=== PATIENT | male | born 1940 | race Caucasian/White ===

== ENCOUNTER 2022-11-19 13:55 | Observation (INO) | payer MEDICARE, MEDICAID ==
[~2022-11-19] VITALS: Ht 180 cm; Wt 75.7 kg
--- NOTE | 2022-11-19 14:24 | ED Fall/Injury ---
General Chief Complaint: Trauma-Non Activation Stated Complaint: FALL Nursing Triage Note: PT ARRIVED PER [facility]. PT CO OF R SHOULDER PAIN AND L HIP PAIN.PT FELL ON SUNDAY AND WAS SEEN IN [facility] AND WAS CLEARED. PT CONT TO HAS R SHOULDER PAIN AND BRUISING, AND L HIP PAIN PAIN, SWELLING AND BRUISING. Source: patient Exam Limitations: clinical condition (dementia) History of Present Illness Date Seen by Provider: Nov 19, 2022 Time Seen by Provider: 14:10 Initial Comments Patient is an 82-year-old male sent from a alf chief complaint right shoulder pain, left hip pain, increased confusion, inability to bear weight to stand for transfers. He had a fall last week and was seen at [facility] ER. Reportedly he had a "work-up" and was cleared to go back to the alf. Reportedly he has continued to develop swelling and pain over the left hip as well as continued right shoulder pain. He is chronically anticoagulated on Eliquis. Patient is very confused, when asked why he is in the emergency department he says "I do not know." He is not answering questions consistently and mentions his work and his boss. When I asked if his abdomen hurt he said "no". Notably vital signs are stable. He is alert, airway appears intact. He is following commands. Will proceed with repeat imaging, basic labs. [facility] records also report that he has had "dark urine". Occurred: last week Severity: mild Injuries/Pain Location: upper extremity, lower extremity Context: unknown Loss of Consciousness: unsure Associated Symptoms (Fall): Confusion Allergies and Home Medications Patient Home Medication List Home Medication List Reviewed: Yes Review of Systems Review of Systems Constitutional: see HPI HPI, review of systems, past medical family and social history unobtainable secondary to the patient's dementia Past Ixrswuw-Iuxxbg-Fukkxv Hx Patient Social History Tobacco Use?: No Smoking Status: Former Smoker Substance use?: No Alcohol Use?: No Pt feels they are or have been: No Immunizations Up To Date Influenza Vaccine Up-to-Date: No; Not Current Physical Exam Vital Signs Vital Signs - First Documented 11/19/22 13:59 Temp 37.0 Pulse 78 Resp 18 B/P (MAP) 127/63 (84) Pulse Ox 97 Capillary Refill : Less Than 3 Seconds Height, Weight, BMI Height: '" Weight: lbs. oz. kg; 24.00 BMI Method: General Appearance: WD/WN, no apparent distress, thin HEENT: PERRL/EOMI, pharynx normal, other (No raccoon eyes, no sneed sign) Neck: non-tender, full range of motion, supple Gastrointestinal: non tender, soft Back: no vertebral tenderness, other (ecchymoses noted at the superior medial left buttock with significant amount of edema that is tender from the ecchymotic area, laterally to the proximal thigh; no open wounds) Extremities: other (decreased ROM to the Right UE with extension and internal rotation; distal NVI; good visual merchandising director. Normal sensation all 4 ext.) Neurologic/Psychiatric: mosaic technician II-XII nml as tested, alert, other (decreaed move ment to the LLE ?due to pain) Skin: warm/dry, ecchymosis (sig ecchymoses bilateral UE and buttock as descr ibed above) [place] Coma Score Best Eye Response: (4) Open Spontaneously Best Verbal Response: (4) Confused Conversation Best Motor Response: (6) Obeys Commands [place] Total: 14 Progress/Results/Core Measures Results/Orders Lab Results Laboratory Tests Test 11/19/22 14:20 11/19/22 14:36 11/19/22 15:46 Range/Units White Blood Count 16.8 H 4.3-11.0 10^3/uL Red Blood Count 3.76 L 4.30-5.52 10^6/uL Hemoglobin 11.4 L 13.3-17.7 g/dL Hematocrit 35 L 40-54 % Mean Corpuscular Volume 92 80-99 fL Mean Corpuscular Hemoglobin 30 25-34 pg Mean Corpuscular Hemoglobin Concent 33 32-36 g/dL Red Cell Distribution Width 13.3 10.0-14.5 % Platelet Count 263 130-400 10^3/uL Mean Platelet Volume 12.1 9.0-12.2 fL Immature Granulocyte % (Auto) 1 % Neutrophils (%) (Auto) 83 H 42-75 % Lymphocytes (%) (Auto) 7 L 12-44 % Monocytes (%) (Auto) 8 0-12 % Eosinophils (%) (Auto) 1 0-10 % Basophils (%) (Auto) 0 0-10 % Neutrophils # (Auto) 13.9 H 1.8-7.8 10^3/uL Lymphocytes # (Auto) 1.2 1.0-4.0 10^3/uL Monocytes # (Auto) 1.3 H 0.0-1.0 10^3/uL Eosinophils # (Auto) 0.2 0.0-0.3 10^3/uL Basophils # (Auto) 0.1 0.0-0.1 10^3/uL Immature Granulocyte # (Auto) 0.1 0.0-0.1 10^3/uL Neutrophils % (Manual) 87 % Lymphocytes % (Manual) 6 % Monocytes % (Manual) 6 % Eosinophils % (Manual) 1 % Basophils % (Manual) 0 % Band Neutrophils 0 % Elliptocytes SLIGHT Sodium Level 139 135-145 MMOL/L Potassium Level 4.2 3.6-5.0 MMOL/L Chloride Level 108 H 98-107 MMOL/L Carbon Dioxide Level 19 L 21-32 MMOL/L Anion Gap 12 5-14 MMOL/L Blood Urea Nitrogen 29 H 7-18 MG/DL Creatinine 1.09 0.60-1.30 MG/DL Estimat Glomerular Filtration Rate 68 BUN/Creatinine Ratio 27 Glucose Level 109 H 70-105 MG/DL Calcium Level 9.1 8.5-10.1 MG/DL Urine Color YELLOW Urine Clarity CLEAR Urine pH 6.0 5-9 Urine Specific [place] 1.020 1.016-1.022 Urine Protein NEGATIVE NEGATIVE Urine Glucose (UA) NEGATIVE NEGATIVE Urine Ketones TRACE H NEGATIVE Urine Nitrite NEGATIVE NEGATIVE Urine Bilirubin NEGATIVE NEGATIVE Urine Urobilinogen 4.0 < = 1.0 MG/DL Urine Leukocyte Esterase NEGATIVE NEGATIVE Urine RBC (Auto) 3+ H NEGATIVE Urine RBC >100 H /HPF Urine WBC 0-2 /HPF Urine Squamous Epithelial Cells RARE /HPF Urine Crystals NONE /LPF Urine Bacteria NEGATIVE /HPF Urine Casts NONE /LPF Urine Mucus NEGATIVE /LPF Urine Culture Indicated NO My Orders Orders - MARCELLA LEMON MD Ed Iv/Invasive Line Start (11/19/22 14:15) Cbc With Automated Diff (11/19/22 14:15) Basic Metabolic Panel (11/19/22 14:15) Ua Culture If Indicated (11/19/22 14:15) Chest 1 View, Ap/Pa Only (11/19/22 14:15) Pelvis With Left Hip 2-3 Views (11/19/22 14:15) Ct Head Wo (11/19/22 14:15) Manual Differential (11/19/22 14:20) Covid 19 Inhouse Test (11/19/22 15:44) Influenza A And B By Pcr (11/19/22 15:44) Isolation Central Supply Req (11/19/22 15:44) Vital Signs/I&O 11/19/22 13:59 Temp 37.0 Pulse 78 Resp 18 B/P (MAP) 127/63 (84) Pulse Ox 97 Blood Pressure Mean: 84 Progress Progress Note : Time: 16:13 Progress Note Patient seen and evaluated by me. Evaluation today includes basic laboratory studies including cath UA, chest x-ray, pelvis and left hip x-ray, CT head without contrast as the patient is anticoagulated with increasing confusion. His vital signs are stable, he is able to hold a conversation but is intermittently confused speech. His chest x-ray is negative for any acute pathology, I am able to partially visualize the right shoulder which does not demonstrate any evidence of dislocation. The patient is able to go through passive range of motion with discomfort in full extension and internal rotation. Neurovascularly intact to the right upper extremity. His pelvis and left hip x-rays do not show any evidence of fracture. CT head without contrast is negative for intracranial hemorrhage. Labs show a mild leukocytosis with a left shift. Chemistry is generally unremarkable. UA shows hematuria, this is a cath specimen, COVID and flu test are negative. He has significant ecchymosis, swelling and warmth to the left gluteus, lateral thigh extending almost to the knee. Not cellulitic in appearance. Significant discomfort with movement of the left leg. Sensation to the left leg is intact, pulses are intact. The left leg is slightly weaker than the right. The patient currently resides in an assisted living facility and in discussion with the nursing staff on trying to get him back over there he now exceeds their capability as he has had slow but steady decline in his ability to function in the assisted living facility. Case was discussed with Dr. Garcia, the patient's primary care physician, she accepts him to inpatient admission here at the hospital Diagnostic Imaging Diagonstic Imaging: Xray Comments [facility] [employer] [facility]. [place], [place] NAME: ARACELY WINSTON [facility] REC#: [id number] PT STATUS: REG ER : 1940 PHYSICIAN: MARCELLA LEMON MD ADMIT DATE: 11/19/22/ER Signed Date of Exam:11/19/22 CHEST 1 VIEW, AP/PA ONLY EXAMINATION: Chest 1 view. HISTORY: Chest injury. COMPARISON: None available. FINDINGS: The lungs are clear without edema or pneumonia. No pleural effusion or pneumothorax. Heart size is normal. IMPRESSION: Clear lungs. Dictated by: Dictated on workstation # [id number] Dict: 11/19/22 1453 Trans: 11/19/22 1549 PJE [id number] Interpreted by: KENIA PARIS MD Electronically signed by: KENIA PARIS MD 11/19/22 1549 Diagonstic Imaging: CT Comments [facility] [place], [place] NAME: ARACELY WINSTON [facility] REC#: [id number] PT STATUS: REG ER : 1940 PHYSICIAN: MARCELLA LEMON MD ADMIT DATE: 11/19/22/ER Signed Date of Exam:11/19/22 CT HEAD WO EXAMINATION: CT head without contrast. TECHNIQUE: Multiple contiguous axial images were obtained through the brain without the use of intravenous contrast. All CT scans use one or more of the following dose optimizing techniques: automated exposure control, MA and/or KvP adjustment based on patient size and exam type or iterative reconstruction. HISTORY: Head injury. COMPARISON: 06/22/2020. FINDINGS: The kwon-white matter differentiation is normal. No mass effect or midline shift. There is age related cerebral atrophy with ex vacuo dilation of the ventricles. Basilar cisterns are patent. There are no intra-axial or extra-axial fluid collection. There is no intracranial hemorrhage. The orbits are normal. Paranasal sinuses are normal. Mastoid air cells are clear. No soft tissue abnormality is seen. No osseus lesion or fracture is seen. IMPRESSION: No acute intracranial abnormality. Dictated by: Dictated on workstation # [id number] Dict: 11/19/22 1455 Trans: 11/19/22 1549 PJE [id number] Interpreted by: KENIA PARIS MD Electronically signed by: KENIA PARIS MD 11/19/22 1549 Diagonstic Imaging: Xray Comments [facility]. [place], [place] NAME: ARACELY WINSTON [facility] REC#: [id number] PT STATUS: REG ER : 1940 PHYSICIAN: MARCELLA LEMON MD ADMIT DATE: 11/19/22/ER Signed Date of Exam:11/19/22 PELVIS WITH LEFT HIP 2-3 VIEWS EXAMINATION: Left hip unilateral 2 or 3 views (w/pelvis when done). HISTORY: Pelvic injury. COMPARISON: 06/22/2020. FINDINGS: No fracture is seen. No dislocation. Joint spaces are normal. IMPRESSION: No fracture is seen in the pelvis or left hip. Dictated by: Dictated on workstation # [id number] Dict: 11/19/22 1454 Trans: 11/19/22 1549 [facility] [id number] Interpreted by: KENIA PARIS MD Electronically signed by: KENIA PARIS MD 11/19/22 1549 Departure Communication (Admissions) Time/Spoke to Admitting Phy: 16:[address] Garcia; accepts admission IP to medical floor Impression Primary Impression: Encephalopathy acute Additional Impressions: Hematoma of left hip Qualified Codes: S70.02XA - Contusion of left hip, initial encounter Chronic anticoagulation Contusion of right shoulder Qualified Codes: S40.011A - Contusion of right shoulder, initial encounter Hematuria Qualified Codes: R31.9 - Hematuria, unspecified Disposition: ADMITTED INPATIENT Condition: Stable Admissions Decision to Admit Reason: Admit from ER (General) Decision to Admit/Date: Nov 19, 2022 Time/Decision to Admit Time: 16:25 Departure-Patient Inst. Referrals: JO GARCIA DO (PCP/Family) Primary Care Physician MARCELLA LEMON MD Nov 19, 2022 14:24
[2022-11-19 14:31] LABS: BASOPHILS # (AUTO) 0.1 10^3/uL (0.0-0.1); BASOPHILS % (AUTO) 0 % (0-10); EOSINOPHILS # (AUTO) 0.2 10^3/uL (0.0-0.3); EOSINOPHILS % (AUTO) 1 % (0-10); HEMATOCRIT 35 % (40-54); HEMOGLOBIN 11.4 g/dL (13.3-17.7); LYMPHOCYTES # (AUTO) 1.2 10^3/uL (1.0-4.0); LYMPHOCYTES % (AUTO) 7 % (12-44); MEAN CORPUSCULAR HEMOGLOBIN 30 pg (25-34); MEAN CORPUSCULAR HGB CONC 33 g/dL (32-36); MEAN CORPUSCULAR VOLUME 92 fL (80-99); MEAN PLATELET VOLUME 12.1 fL (9.0-12.2); MONOCYTES # (AUTO) 1.3 10^3/uL (0.0-1.0); MONOCYTES % (AUTO) 8 % (0-12); NEUTROPHILS # (AUTO) 13.9 10^3/uL (1.8-7.8); NEUTROPHILS % (AUTO) 83 % (42-75); PLATELET COUNT 263 10^3/uL (130-400); WHITE BLOOD COUNT 16.8 10^3/uL (4.3-11.0)
[2022-11-19 14:37] LABS: POTASSIUM 4.2 MMOL/L (3.6-5.0)
[2022-11-19 14:38] LABS: CALCIUM 9.1 MG/DL (8.5-10.1)
[2022-11-19 14:42] LABS: CREATININE SERUM 1.09 MG/DL (0.60-1.30)
[2022-11-19 14:43] LABS: BILIRUBIN,URINE NEGATIVE (NEGATIVE); CLARITY,URINE CLEAR; COLOR,URINE YELLOW; GLUCOSE, URINE (UA) NEGATIVE (NEGATIVE); KETONES,URINE TRACE (NEGATIVE); LEUKOCYTE ESTERASE ,URINE NEGATIVE (NEGATIVE); NITRITE,URINE NEGATIVE (NEGATIVE); PROTEIN,URINE NEGATIVE (NEGATIVE)
--- NOTE | 2022-11-19 14:57 | Diagnostic Imaging Report ---
EXAMINATION: Chest 1 view. HISTORY: Chest injury. COMPARISON: None available. FINDINGS: The lungs are clear without edema or pneumonia. No pleural effusion or pneumothorax. Heart size is normal. IMPRESSION: Clear lungs. Dictated by: Dictated on workstation # [id number]
--- NOTE | 2022-11-19 14:58 | Diagnostic Imaging Report ---
EXAMINATION: Left hip unilateral 2 or 3 views (w/pelvis when done). HISTORY: Pelvic injury. COMPARISON: 06/22/2020. FINDINGS: No fracture is seen. No dislocation. Joint spaces are normal. IMPRESSION: No fracture is seen in the pelvis or left hip. Dictated by: Dictated on workstation # [id number]
--- NOTE | 2022-11-19 15:01 | Diagnostic Imaging Report ---
EXAMINATION: CT head without contrast. TECHNIQUE: Multiple contiguous axial images were obtained through the brain without the use of intravenous contrast. All CT scans use one or more of the following dose optimizing techniques: automated exposure control, MA and/or KvP adjustment based on patient size and exam type or iterative reconstruction. HISTORY: Head injury. COMPARISON: 06/22/2020. FINDINGS: The kwon-white matter differentiation is normal. No mass effect or midline shift. There is age related cerebral atrophy with ex vacuo dilation of the ventricles. Basilar cisterns are patent. There are no intra-axial or extra-axial fluid collection. There is no intracranial hemorrhage. The orbits are normal. Paranasal sinuses are normal. Mastoid air cells are clear. No soft tissue abnormality is seen. No osseus lesion or fracture is seen. IMPRESSION: No acute intracranial abnormality. Dictated by: Dictated on workstation # [id number]
[2022-11-19 15:02] LABS: BACTERIA,URINE NEGATIVE /HPF; RBC,URINE >100 /HPF; SQUAMOUS EPITHELIAL CELL,UR RARE /HPF; WBC,URINE 0-2 /HPF
[2022-11-19 15:24] LABS: BAND NEUTROPHILS 0 %; BASOPHILS % (MANUAL) 0 %; ELLIPT/OVALOCYTES SLIGHT; EOSINOPHILS % (MANUAL) 1 %; LYMPHOCYTES % (MANUAL) 6 %; MONOCYTES % (MANUAL) 6 %; NEUTROPHILS % (MANUAL) 87 %
[2022-11-19] MEDS ORDERED: diphenhydrAMINE 50 MG/ML INJ (BENADRYL) IVP PRN (17:45)
[2022-11-19] MEDS ORDERED: BISACODYL 10 MG SUPP (DULCOLAX) PR PRN (17:45)
[2022-11-19] MEDS ORDERED: HALOPERIDOL 5 MG/ML (HALDOL) VIAL IM PRN (17:45)
[2022-11-19] MEDS ORDERED: diphenhydrAMINE 25 MG TAB (BENADRYL) PO PRN (17:45)
[2022-11-19] MEDS ORDERED: polyethylene glycoL POWDER 17 GM (MIRALAX) PACK PO PRN (17:45)
[2022-11-19] MEDS ORDERED: LORazepam INJ 2 MG/ML (ATIVAN) VIAL IVP PRN (17:45)
[2022-11-19] MEDS ORDERED: MILK OF MAGNESIA 400 MG/5 ML 30 ML UDC PO PRN (17:45)
[2022-11-19] MEDS ORDERED: CALCIUM CARBONATE 500 MG (TUMS) TAB.CHEW PO PRN (17:45)
[2022-11-19] MEDS ORDERED: ANTACID SUSP 30 ML UDC (MYLANTA) PO PRN (17:45)
[2022-11-19] MEDS ORDERED: MELATONIN 3 MG TABLET PO PRN (17:45)
[2022-11-19] MEDS ORDERED: LORazepam 0.5 MG (ATIVAN) TABLET PO PRN (17:45)
[2022-11-19] MEDS ORDERED: ONDANSETRON 4 MG (ZOFRAN) ORAL DISSOLVE TAB PO PRN (17:45)
[2022-11-19] MEDS ORDERED: HYDROmorphone 2 MG/ML VIAL (DILAUDID) IV PRN (17:45)
[2022-11-19] MEDS ORDERED: LACTULOSE SYRUP 10GM/15ML (ENULOSE) 30ML UDC PO PRN (17:45)
[2022-11-19] MEDS ORDERED: ONDANSETRON 4 MG/2 ML (SDV) Z0FRAN IV PRN (17:45)
[2022-11-19] MEDS: NS IV 1000 ML 1,000 ML IV SCH (18:10)
[2022-11-19 19:48] VITALS: BP 104/56
[2022-11-19] MEDS: DIVALPROEX 250 MG DELAYED RELEASE (DEPAKOTE) TAB PO SCH (20:28)
[2022-11-19] MEDS: HALOPERIDOL 0.5 MG (HALDOL) TAB PO SCH (20:28)
[2022-11-19] MEDS: SENNOSIDES 8.6 MG (SENOKOT) TAB PO SCH (20:28)
[2022-11-19] MEDS: DOCUSATE SODIUM 100 MG (COLACE) CAP PO SCH (20:28)
[2022-11-19] MEDS: MONTELUKAST 10 MG (SINGULAIR) TAB PO SCH (20:28)
[2022-11-19] MEDS: RT-ALBUTEROL SULF 2.5 MG/3 ML PRE-MIX VIAL INH SCH (20:54)
[2022-11-19] MEDS ORDERED: ADVAIR HFA 115/21 MCG INHALER 8 GM IH SCH (21:00)
[2022-11-19] MEDS: RT--FLUTICASONE/SALMETEROL 113-14 (AIRDUO RespiCLICK) IH SCH (21:03)
[2022-11-19 23:20] VITALS: BP_SYST 119; BP_SYST 133; BP_DIAS 63; BP_DIAS 67
[2022-11-20] VITALS (7 sets, daily range): BP systolic 86–125; BP diastolic 55–60
[2022-11-20] MEDS: HALOPERIDOL 0.5 MG (HALDOL) TAB PO SCH ×7 (00:17→23:17)
[2022-11-20 06:11] LABS: LYMPHOCYTES % (AUTO) 9 % (12-44)
[2022-11-20 06:13] LABS: BASOPHILS % (AUTO) 0 % (0-10); EOSINOPHILS # (AUTO) 0.4 10^3/uL (0.0-0.3); EOSINOPHILS % (AUTO) 3 % (0-10); HEMATOCRIT 32 % (40-54); HEMOGLOBIN 10.1 g/dL (13.3-17.7); LYMPHOCYTES # (AUTO) 1.2 10^3/uL (1.0-4.0); MEAN CORPUSCULAR HEMOGLOBIN 30 pg (25-34); MEAN CORPUSCULAR HGB CONC 32 g/dL (32-36); MEAN CORPUSCULAR VOLUME 93 fL (80-99); MEAN PLATELET VOLUME 13.1 fL (9.0-12.2); MONOCYTES # (AUTO) 1.1 10^3/uL (0.0-1.0); MONOCYTES % (AUTO) 8 % (0-12); NEUTROPHILS # (AUTO) 10.4 10^3/uL (1.8-7.8); NEUTROPHILS % (AUTO) 79 % (42-75); PLATELET COUNT 233 10^3/uL (130-400); WHITE BLOOD COUNT 13.2 10^3/uL (4.3-11.0)
[2022-11-20 06:33] LABS: ALBUMIN 2.9 GM/DL (3.2-4.5); BILIRUBIN,TOTAL 1.3 MG/DL (0.1-1.0); CALCIUM 8.9 MG/DL (8.5-10.1); CREATININE SERUM 0.85 MG/DL (0.60-1.30); TOTAL PROTEIN 5.9 GM/DL (6.4-8.2)
[2022-11-20 06:41] LABS: VALPROIC ACID 24.6 UG/ML (50.0-100.0)
[2022-11-20] MEDS: RT-ALBUTEROL SULF 2.5 MG/3 ML PRE-MIX VIAL INH SCH ×2 (07:52→21:22)
[2022-11-20] MEDS: RT--FLUTICASONE/SALMETEROL 113-14 (AIRDUO RespiCLICK) IH SCH ×2 (07:53→21:23)
[2022-11-20] MEDS: NS IV 1000 ML 1,000 ML IV SCH (08:56)
[2022-11-20] MEDS: SENNOSIDES 8.6 MG (SENOKOT) TAB PO SCH ×2 (08:56→19:51)
[2022-11-20] MEDS: DIVALPROEX 250 MG DELAYED RELEASE (DEPAKOTE) TAB PO SCH ×2 (08:56→19:51)
[2022-11-20] MEDS: DOCUSATE SODIUM 100 MG (COLACE) CAP PO SCH ×2 (08:56→19:51)
[2022-11-20] MEDS: LOSARTAN 50 MG (COZAAR) TAB PO SCH (08:56)
--- NOTE | 2022-11-20 10:10 | Physical Therapy Evaluation ---
PT Evaluation-General Medical Diagnosis Admission Date Nov 19, 2022 at 16:29 Medical Diagnosis: chronic anticoagulation Onset Date: Nov 19, 2022 Therapy Diagnosis Therapy Diagnosis: generalized weakness/debility Precautions Precautions/Isolations: Fall Prevention, Standard Precautions Referral Physician: Imelda Reason for Referral: Evaluation/Treatment Medical History Pertinent Medical History: Dementia Current History ER secondary to left side pain due to fall at [place] Social History Home: Assisted Living Prior Prior Level of Function SCALE: Activities may be completed with or without assistive devices. 6-Apyyddceyd-mevucjg completes the activity by him/herself with no assistance from a helper. 5-Set-up or Clean-up Assistance-helper sets up or cleans up; patient completes activity. [place] assists only prior to or following the activity. 4-Supervision or Touching Assistance-helper provides verbal cues and/or touching /steadying and/or contact guard assistance as patient completes activity. Assistance may be provided throughout the activity or intermittently. 3-Partial/Moderate Assistance-helper does LESS THAN HALF the effort. [place] lifts, holds or supports trunk or limbs, but provides less than half the effort. 2-Substantial/Maximal Assistance-helper does MORE THAN HALF the effort. [place] lifts or holds trunk or limbs and provides more than half the effort. 5-Gqzgunlov-mbaueb does ALL the effort. Patient does none of the effort to complete the activity. Or, the assistance of 2 or more helpers is required for the patient to complete the activity. If activity was not attempted, code reason: 7-Patient Refused. 9-Not Applicable-not attempted and the patient did not perform the activity before the current illness, exacerbation or injury. 10-Not Attempted due to Environmental Limitations-(lack of equipment, weather restraints, etc.). 88-Not Attempted due to Medical Conditions or Safety Concerns. Bed Mobility: 3 Transfers (B,C,W/C): 3 Gait: 3 Indoor Mobility (Ambulation): Needed Some Help Stairs: Not Applicalbe Prior Devices Use: Walker don't know of accuracy of mobility due to patient's dementia. PT Evaluation-Current Subjective Patient states, "I can't walk." Did not give an explanation as to why. Objective Patient Orientation: Person Attachments: Arnold Catheter, IV ROM/Strength ROM Lower Extremities bilateral LE WFL Strength Lower Extremities 3/5 grossly bilateral LE all planes Integumentary/Posture Bladder Incontinence: Arnold Cath Posture WFL Neuromuscular (Tone, Coordination, Reflexes) diminished coordination/slight retropulsion Sensory Vision: Wears Glasses Hearing: Functional Transfers Lying to Sitting/Side of Bed(Q: 2 Sit to Stand (QC): 2 Chair/Iqh-xy-Hffnc Xfer(QC): 2 Gait Mode of Locomotion: Walk Anticipated Mode of Locomotion: Walk Walk 10 feet (QC): 2 Walk 50 ft with 2 Turns(QC): 88 Walk 150 ft (QC): 88 Distance: 10' Gait Assistive Device: FWW Comments/Gait Description slightly unsteady with all mobility/right lean Balance Sitting Static: Fair Sitting Dynamic: Fair Standing Static: Fair Standing Dynamic: Poor Assessment/Needs Patient will benefit from skilled PT to address functional strength and mobility to improve current LOF. Patient is currently requiring max assist with all mobility and requires encouragement to participate with therapy. Up in recliner with chair alarm activated for patient's safety. Rehab Potential: Guarded PT Sales Engineer Goals Mcfp Goals PT Mcfp Goals Time Frame: Dec 09, 2022 Roll Left & Right (QC): 4 Sit to Lying (QC): 4 Lying-Sitting on Side/Bed(QC): 4 Sit to Stand (QC): 4 Chair/Egh-cq-Eqsfj Xfer(QC): 4 Toilet Transfer (QC): 4 Walk 10 feet (QC): 4 Walk 50ft with 2 Turns (QC): 4 Walk 150 ft (QC): 4 PT Plan Problem List Problem List: Activity Tolerance, Functional Strength, Safety, Balance, Gait, Transfer, Bed Mobility Treatment/Plan Treatment Plan: Continue Plan of Care Treatment Plan: Bed Mobility, Education, Functional Activity [place], Functional Strength, Gait, Safety, Therapeutic Exercise, Transfers Treatment Duration: Dec 09, 2022 Frequency: 6 times per week Estimated Hrs Per Day: .25 hour per day Time Time In: 905 Time Out: 915 DATE: Nov 20, 2022 Total Billed Treatment Time: 10 Total Billed Treatment 1 visit EVModC 10 min CLINT MAHONEY PT Nov 20, 2022 10:10
[2022-11-20] MEDS ORDERED: [UNRECOGNIZED DRUG - CODE] OD (10:15)
[2022-11-20] MEDS ORDERED: MINE50OI TP (10:16)
[2022-11-20] MEDS ORDERED: MONT-40 PO (10:26)
[2022-11-20] MEDS ORDERED: OLME20TA24 PO (10:27)
[2022-11-20] MEDS ORDERED: SERT-413 PO (10:28)
[2022-11-20] MEDS ORDERED: BUDE10.2 IH (10:30)
[2022-11-20] MEDS ORDERED: ASCO-262 PO (10:30)
[2022-11-20] MEDS ORDERED: ALBU8.5H6 PO (10:33)
[2022-11-20] MEDS ORDERED: ASPI-999 PO (10:35)
[2022-11-20] MEDS ORDERED: DEXT30DR6 OP (10:35)
[2022-11-20] MEDS ORDERED: ATOR20TA66 PO (10:36)
[2022-11-20] MEDS ORDERED: CETI10TA17 PO (10:37)
[2022-11-20] MEDS ORDERED: DIVA250T2 PO (10:38)
[2022-11-20] MEDS ORDERED: APIX2.5T PO (10:38)
[2022-11-20] MEDS ORDERED: TR1C15 TP (10:39)
[2022-11-20] MEDS ORDERED: IRON1TAB86 PO (10:40)
--- NOTE | 2022-11-20 10:50 | Occupational Therapy Eval ---
OT Evaluation-General/PLF Medical Diagnosis Admission Date Nov 19, 2022 at 16:29 Medical Diagnosis: chronic anticoagulation Onset Date: Nov 19, 2022 Therapy Diagnosis Therapy Diagnosis: R shoulder pain, slow motor cordination, c/o pain Precautions Precautions/Isolations: Fall Prevention, Standard Precautions Weight Bear Status Weight Bearing Restriction: Weight Bearing/Tolerated Referral Physician: Imelda Referral Reason: Evaluation/Treatment Medical History Pertinent Medical History: Dementia Reviewed History: Yes Social History Home: Assisted Living Current Living Status: [facility] ADL-Prior Level of Function SCALE: Activities may be completed with or without assistive devices. 0-Kfouhybhoc-dvxvyjt completes the activity by him/herself with no assistance from a helper. 5-Set-up or Clean-up Assistance-helper sets up or cleans up; patient completes activity. [place] assists only prior to or following the activity. 4-Supervision or Touching Assistance-helper provides verbal cues and/or touching/steadying and/or contact guard assistance as patient completes activity. Assistance may be provided throughout the activity or intermittently. 3-Partial/Moderate Assistance-helper does LESS THAN HALF the effort. [place] lifts, holds or supports trunk or limbs, but provides less than half the effort. 2-Substantial/Maximal Assistance-helper does MORE THAN HALF the effort. [place] lifts or holds trunk or limbs and provides more than half the effort. 2-Wyxktyymp-rjjmlc does ALL the effort. Patient does none of the effort to complete the activity. Or, the assistance of 2 or more helpers is required for the patient to complete the activity. If activity was not attempted, code reason: 7-Patient Refused. 9-Not Applicable-not attempted and the patient did not perform the activity before the current illness, exacerbation or injury. 10-Not Attempted due to Environmental Limitations-(lack of equipment, weather restraints, etc.). 88-Not Attempted due to Medical Conditions or Safety Concerns. Self Care: Needed Some Help Functional Cognition: Needed Some Help Drive Self: No OT Current Status Subjective Patient confused and slow to respond to movement commands, reports he just returned from fishing Mental Status/Objective Patient Orientation: Person, Confused Attachments: IV Current Upper Extremity ROM Right shoulder pain, PROM WFLs, holds at 90 w/ positioning ADL-Treatment ADL-Current don slippers, face washing and set up for breakfast, declines gown change Eating (QC): 6 On/Off Footwear (QC): 4 Other Treatments transfers w/ moderate assist and 50% VCs Education OT Patient Education: Correct positioning, Energy conservation, Modified ADL techniques, Progress toward Goal/Update tx plan, Purpose of tx/functional activities, Reviewed precautions, Rehab process, Safety issues, Transfer techniques Teaching Recipient: Patient Teaching Methods: Demonstration, Discussion Response to Teaching: Verbalize Understanding, Return Demonstration, Reinforcement Needed OT Prison Goals Prison Goals Time Frame: Dec 02, 2022 Eating (QC): 6 Oral Hygiene (QC): 5 Toileting Hygiene (QC): 5 Shower/Bathe Self (QC): 5 Upper Body Dressing (QC): 5 Lower Body Dressing (QC): 5 On/Off Footwear (QC): 6 Additional Goals: 1-Demonstrate ADL Tasks, 2-Verbalize Understanding, 3- ImproveStrength/[place] 1=Demonstrate adherence to instructed precautions during ADL tasks. 2=Patient will verbalize/demonstrate understanding of assistive devices/modifications for ADL. 3=Patient will improve strength/tolerance for activity to enable patient to perform ADL's. OT Education/Plan Problem List/Assessment Assessment: Decreased Activ Tolerance, Decreased Safety Aware, Decreased UE Strength, Impaired Cognition, Impaired Coordination, Impaired Funct Balance, Impaired Self-Care Skills, Restricted Funct UE ROM Discharge Recommendations Plan/Recommendations: Continue POC Therapy Discharge Recommendati: 24 Hour Supervision, Post Acute OT Comment Pt remains seated in recliner w/ bed tray table, call light and tv remote in reach Treatment Plan/Plan of Care Treatment,Training & Education: Yes Patient would benefit from OT for education, treatment and training to promote independence in ADL's, mobility, safety and/or upper extremity function for ADL's. Plan of Care: ADL Retraining, Functional Mobility, Group Exercise/Act as Ind, UE Funct Exercise/Act Treatment Duration: Dec 02, 2022 Frequency: 3 times per week (3-5 times / week) Agreement: Yes Rehab Potential: Good Time Start Time: :09 Stop Time: 09:25 DATE: Nov 20, 2022 Total Time Billed (hr/min): 24 Billed Treatment Time 1 EVM 24m VIPUL CUMMINGS OT Nov 20, 2022 10:50
--- NOTE | 2022-11-20 11:06 | History & Physical ---
ANAYELI RIVAS I 11/20/22 1106: History of Present Illness History of Present Illness Reason for visit/HPI CC: Fall with chronic anticoagulation HPI: Juan Jose Gay is a 82 year old male with past medical history of dementia admitted following a fall (11/15) and taking anticoagulation. He was seen in [facility] and was reportedly cleared to go back to the senior living. Due to his dementia, accurate history is limited. He reports his mechanism of injury to be falling after a door was opened at work, but can not name the company, or who was with him when it happened. After being released at [facility], he has had continued swelling and and pain in his left hip and right shoulder and was admitted to this hospital for increasing debility. In the ED, imaging disclosed no fractures in either the shoulder or hip, and no intracranial hemorrhage. He continues to complain of pain in both areas, and is unable to walk. He has an effusion on his right knee, and comments he has leg weakness, which he says has been there "since the new social security came out." He has had several bowel movements, and is voiding normally. He denies fever, chest pain, and abdominal pain. Past medical and social histories are non contributory secondary to his dementia. Date of Admission Nov 19, 2022 at 16:29 Date Seen by a Provider: Nov 20, 2022 Time Seen by a Provider: 09:45 I consulted on this patient on 11/20/22 11:05 Attending Physician Martita Garcia DO Admitting Physician Admitting Physician: Martita Garcia DO Attending Physician: Martita Garcia DO Consult Allergies and Home Medications Allergies Coded Allergies: No Known Drug Allergies (Unverified , 11/19/22) Patient Home Medication List Home Medication List Reviewed: Yes Albuterol Sulfate (Ventolin Hfa) 90 Mcg Hfa.aer.ad, 2 PUFF PO TID, (Reported) Entered as Reported by: DOMINGO IBRAHIM on 11/20/22 1033 Last Action: Reviewed Apixaban (Eliquis) 2.5 Mg Tablet, 2.5 MG PO BID, (Reported) Entered as Reported by: DOMINGO IBRAHIM on 11/20/22 1038 Last Action: Reviewed Ascorbate Calcium (Vitamin C) 500 Mg Tablet, 500 MG PO DAILY, (Reported) Entered as Reported by: DOMINGO IBRAHIM on 11/20/22 1030 Last Action: Reviewed Aspirin (Aspirin) 81 Mg Tab.chew, 81 MG PO DAILY, (Reported) Entered as Reported by: DOMINGO IBRAHIM on 11/20/22 1035 Last Action: Reviewed Atorvastatin Calcium (Atorvastatin Calcium) 20 Mg Tablet, 20 MG PO 1999, (Reported) Entered as Reported by: DOMINGO IBRAHIM on 11/20/22 1036 Last Action: Reviewed Budesonide/Formoterol Fumarate (Symbicort 160-4.5 Mcg Inhaler) 160 Mcg-4.5 Mcg/Actuation Hfa.aer.ad, 2 PUFF IH BID, (Reported) Entered as Reported by: DOMINGO IBRAHIM on 11/20/22 1030 Last Action: Reviewed Cetirizine HCl (Cetirizine HCl) 10 Mg Tablet, 10 MG PO DAILY, (Reported) Entered as Reported by: DOMINGO IBRAHIM on 11/20/22 1037 Last Action: Reviewed Dextran 70/Hypromellose (Artificials Tears Drops) 30 Ml Drops, 1 DROP OP DAILY PRN for DRY EYES, (Reported) Entered as Reported by: DOMINGO IBRAHIM on 11/20/22 1035 Last Action: Reviewed Divalproex Sodium (Depakote) 250 Mg Tablet.dr, 250 MG PO BID, (Reported) Entered as Reported by: DOMINGO IBRAHIM on 11/20/22 1038 Last Action: Reviewed Mineral Oil/Hydrophil Petrolat (Aquaphor Healing Ointment) 50 Gm Oint...g., 1 APPLIC TP BID, (Reported) Entered as Reported by: DOMINGO IBRAHIM on 11/20/22 1016 Last Action: Reviewed Mineral Oil/Petrolatum,White (Lubricant Pm Eye Ointment) 42.5 %-57.3 % Oint...g., 1 APPLIC OD HS PRN for EYE REDNESS, (Reported) Entered as Reported by: DOMINGO IBRAHIM on 11/20/22 1015 Last Action: Reviewed Montelukast Sodium (Montelukast Sodium) 10 Mg Tablet, 10 MG PO DAILY, (Reported) Entered as Reported by: DOMINGO IBRAHIM on 11/20/22 1026 Last Action: Reviewed Mv, Min #36/Iron,Carbonyl/FA (Geritol Complete Tablet) 16 Mg Iron-0.38 Mg Tablet, 1 EACH PO DAILY, (Reported) Entered as Reported by: DOMINGO IBRAHIM on 11/20/22 1040 Last Action: Reviewed Olmesartan Medoxomil (Olmesartan Medoxomil) 20 Mg Tablet, 20 MG PO DAILY, (Reported) Entered as Reported by: DOMINGO IBRAHIM on 11/20/22 1027 Last Action: Reviewed Sertraline HCl (Sertraline HCl) 50 Mg Tablet, 75 MG PO DAILY, (Reported) Entered as Reported by: DOMINGO IBRAHIM on 11/20/22 1028 Last Action: Reviewed Triamcinolone Acet (Triamcinolone Acetonide 0.1% Cream) 0.1 % Cr, 1 APPLIC TP BID, (Reported) Entered as Reported by: DOMINGO IBRAHIM on 11/20/22 1039 Last Action: Reviewed Past Ypovriz-Fbyxkf-Pksbcu Hx Patient Social History Tobacco Use?: No Smoking Status: Former Smoker Substance use?: No Alcohol Use?: No Pt feels they are or have been: No Current Status Advance Directives: No Communicates: Verbally Primary Language: [place] Preferred Spoken Language: [place] Is interpretation needed?: No Sensory deficits: Vision impairment, Hearing impairment Implanted or Applied Medical D: Orthopedic hardware Review of Systems Constitutional: see HPI Cardiovascular: no symptoms reported Musculoskeletal: joint pain (R shoulder, L hip), joint swelling (R knee) Skin: change in color (ecchymosis L lateral quad, L popliteal fossa. Bruising on both arms, L>R) Physical Exam Vital Signs Vital Signs - First Documented 11/19/22 11/19/22 13:59 17:25 Temp 37.0 Pulse 78 Resp 18 B/P (MAP) 127/63 (84) Pulse Ox 97 O2 Delivery Room Air Capillary Refill : Less Than 3 Seconds Height, Weight, BMI Height: '" Weight: lbs. oz. kg; 24.66 BMI Method: General Appearance: Chronically ill, Thin Eyes: Bilateral Eye Normal Inspection, Bilateral Eye PERRL, Bilateral Eye EOMI Neck: Full Range of Motion, Normal Inspection, Non Tender, Supple, Carotid Bruit Respiratory: Chest Non Tender, Lungs Clear, Normal Breath Sounds, No Accessory Muscle Use, No Respiratory Distress Cardiovascular: Regular Rate, Rhythm, No Edema, No JVD, Normal Peripheral Pulses Gastrointestinal: Non Tender, Soft Back: Normal Inspection Extremity: Other (R shoulder limited abduction, Flexion to 90 limited by pain. L lateral ecchymosis. R knee non-erythematous effusion) Neurologic/Psychiatric: Alert (Oriented to person, place, time. Knows current president. ) Assessment/Plan Assessment and Plan Problems: (1) Contusion of right shoulder Status: Acute Qualifiers: Qualified Codes: S40.011A - Contusion of right shoulder, initial encounter Assessment & Plan: - CXR negative for fractures - Alternate Ibuprofen/tylenol for pain (2) Hematuria Status: Acute Qualifiers: Qualified Codes: R31.9 - Hematuria, unspecified Assessment & Plan: - Likely due to traumatic insertion of catheter - Monitor (3) Chronic anticoagulation Status: Acute Assessment & Plan: - Unclear as to reason behind anticoagulation. - Continue home medications (4) Hematoma of left hip Status: Acute Qualifiers: Qualified Codes: S70.02XA - Contusion of left hip, initial encounter Assessment & Plan: - Hip XR negative for fractures. - Symptomatic pain treatment (5) Physical debility Status: Acute Assessment & Plan: - Unable to complete IADL - PT/OT - Consider for inpatient rehab Clinical Quality Measures DVT/VTE Risk/Contraindication: Contraindications-Pharm: Other *list below* Other: large hematoma and hematuria MARTITA GARCIA DO 11/21/22 0506: Allergies and Home Medications Allergies Coded Allergies: No Known Drug Allergies (Unverified , 11/19/22) Patient Home Medication List Albuterol Sulfate (Ventolin Hfa) 90 Mcg Hfa.aer.ad, 2 PUFF PO TID, (Reported) Entered as Reported by: DOMINGO IBRAHIM on 11/20/22 1033 Last Action: Reviewed Apixaban (Eliquis) 2.5 Mg Tablet, 2.5 MG PO BID, (Reported) Entered as Reported by: DOMINGO IBRAHIM on 11/20/22 1038 Last Action: Reviewed Ascorbate Calcium (Vitamin C) 500 Mg Tablet, 500 MG PO DAILY, (Reported) Entered as Reported by: DOMINGO IBRAHIM on 11/20/22 1030 Last Action: Reviewed Aspirin (Aspirin) 81 Mg Tab.chew, 81 MG PO DAILY, (Reported) Entered as Reported by: DOMINGO IBRAHIM on 11/20/22 1035 Last Action: Reviewed Atorvastatin Calcium (Atorvastatin Calcium) 20 Mg Tablet, 20 MG PO 2000, (Reported) Entered as Reported by: DOMINGO IBRAHIM on 11/20/22 1036 Last Action: Reviewed Budesonide/Formoterol Fumarate (Symbicort 160-4.5 Mcg Inhaler) 160 Mcg-4.5 Mcg/Actuation Hfa.aer.ad, 2 PUFF IH BID, (Reported) Entered as Reported by: DOMINGO IBRAHIM on 11/20/22 1030 Last Action: Reviewed Cetirizine HCl (Cetirizine HCl) 10 Mg Tablet, 10 MG PO DAILY, (Reported) Entered as Reported by: DOMINGO IBRAHIM on 11/20/22 1037 Last Action: Reviewed Dextran 70/Hypromellose (Artificials Tears Drops) 30 Ml Drops, 1 DROP OP DAILY PRN for DRY EYES, (Reported) Entered as Reported by: DOMINGO IBRAHIM on 11/20/22 1035 Last Action: Reviewed Divalproex Sodium (Depakote) 250 Mg Tablet.dr, 250 MG PO BID, (Reported) Entered as Reported by: DOMINGO IBRAHIM on 11/20/22 1038 Last Action: Reviewed Mineral Oil/Hydrophil Petrolat (Aquaphor Healing Ointment) 50 Gm Oint...g., 1 APPLIC TP BID, (Reported) Entered as Reported by: DOMINGO IBRAHIM on 11/20/22 1016 Last Action: Reviewed Mineral Oil/Petrolatum,White (Lubricant Pm Eye Ointment) 42.5 %-57.3 % Oint...g., 1 APPLIC OD HS PRN for EYE REDNESS, (Reported) Entered as Reported by: DOMINGO IBRAHIM on 11/20/22 1015 Last Action: Reviewed Montelukast Sodium (Montelukast Sodium) 10 Mg Tablet, 10 MG PO DAILY, (Reported) Entered as Reported by: DOMINGO IBRAHIM on 11/20/22 1026 Last Action: Reviewed Mv, Min #36/Iron,Carbonyl/FA (Geritol Complete Tablet) 16 Mg Iron-0.38 Mg Tablet, 1 EACH PO DAILY, (Reported) Entered as Reported by: DOMINGO IBRAHIM on 11/20/22 1040 Last Action: Reviewed Olmesartan Medoxomil (Olmesartan Medoxomil) 20 Mg Tablet, 20 MG PO DAILY, (Reported) Entered as Reported by: DOMINGO IBRAHIM on 11/20/22 1027 Last Action: Reviewed Sertraline HCl (Sertraline HCl) 50 Mg Tablet, 75 MG PO DAILY, (Reported) Entered as Reported by: DOMINGO IBRAHIM on 11/20/22 1028 Last Action: Reviewed Triamcinolone Acet (Triamcinolone Acetonide 0.1% Cream) 0.1 % Cr, 1 APPLIC TP BID, (Reported) Entered as Reported by: DOMINGO IBRAHIM on 11/20/22 1039 Last Action: Reviewed Review of Systems Constitutional: see HPI Physical Exam General Appearance: No Apparent Distress, Chronically ill Assessment/Plan Assessment and Plan Assessment: Fall Large hematoma Dementia HTN AF Frail status Plan: PT OT May need skilled Admission Diagnosis Admission Status: Observation Supervisory-Addendum Brief Verification & Attestation Participated in pt care: history, MDM, physical Personally performed: exam, history, MDM, supervision of care Care discussed with: Medical Student Procedures: n/a Results interpretation: Verified all documentation Verification and Attestation of Medical Student E/M Service A medical student performed and documented this service in my presence. I reviewed and verified all information documented by the medical student and made modifications to such information, when appropriate. I personally performed the physical exam and medical decision making. Martita Garcia, Nov 21, 2022,05:06 ANAYELI RIVAS I Nov 20, 2022 11:06 MARTITA GARCIA DO Nov 21, 2022 05:06
[2022-11-20] MEDS: MONTELUKAST 10 MG (SINGULAIR) TAB PO SCH (19:51)
[2022-11-21 04:02] VITALS: BP 130/68
[2022-11-21] MEDS: HALOPERIDOL 0.5 MG (HALDOL) TAB PO SCH ×3 (04:05→11:59)
[2022-11-21 06:17] LABS: BASOPHILS # (AUTO) 0.1 10^3/uL (0.0-0.1); BASOPHILS % (AUTO) 0 % (0-10); EOSINOPHILS # (AUTO) 0.4 10^3/uL (0.0-0.3); EOSINOPHILS % (AUTO) 3 % (0-10); HEMATOCRIT 32 % (40-54); HEMOGLOBIN 10.2 g/dL (13.3-17.7); LYMPHOCYTES # (AUTO) 1.1 10^3/uL (1.0-4.0); LYMPHOCYTES % (AUTO) 7 % (12-44); MEAN CORPUSCULAR HEMOGLOBIN 30 pg (25-34); MEAN CORPUSCULAR HGB CONC 32 g/dL (32-36); MEAN CORPUSCULAR VOLUME 93 fL (80-99); MEAN PLATELET VOLUME 11.8 fL (9.0-12.2); MONOCYTES # (AUTO) 1.1 10^3/uL (0.0-1.0); MONOCYTES % (AUTO) 8 % (0-12); NEUTROPHILS # (AUTO) 11.6 10^3/uL (1.8-7.8); NEUTROPHILS % (AUTO) 81 % (42-75); PLATELET COUNT 255 10^3/uL (130-400); WHITE BLOOD COUNT 14.3 10^3/uL (4.3-11.0)
[2022-11-21 06:36] LABS: BILIRUBIN,TOTAL 1.2 MG/DL (0.1-1.0); CALCIUM 8.9 MG/DL (8.5-10.1); CREATININE SERUM 0.76 MG/DL (0.60-1.30); POTASSIUM 3.9 MMOL/L (3.6-5.0); TOTAL PROTEIN 6.1 GM/DL (6.4-8.2)
[2022-11-21] MEDS: RT--FLUTICASONE/SALMETEROL 113-14 (AIRDUO RespiCLICK) IH SCH (07:44)
[2022-11-21] MEDS: RT-ALBUTEROL SULF 2.5 MG/3 ML PRE-MIX VIAL INH SCH ×2 (07:44→20:57)
[2022-11-21 07:51] VITALS: BP 126/82
[2022-11-21] MEDS: DIVALPROEX 250 MG DELAYED RELEASE (DEPAKOTE) TAB PO SCH ×2 (09:12→19:20)
[2022-11-21] MEDS: LOSARTAN 50 MG (COZAAR) TAB PO SCH (09:13)
[2022-11-21] MEDS: DOCUSATE SODIUM 100 MG (COLACE) CAP PO SCH ×2 (09:13→19:20)
[2022-11-21] MEDS: ACETAMINOPHEN 325 MG TABLET PO PRN (09:13)
[2022-11-21] MEDS: SENNOSIDES 8.6 MG (SENOKOT) TAB PO SCH ×2 (09:13→19:20)
--- NOTE | 2022-11-21 09:25 | Occupational Ther Daily Note ---
OT Current Status-Daily Note Subjective Up in recliner eating breakfast Mental Status/Objective Patient Orientation: Person, Confused Attachments: Other-See Comments KEV sitter chair alarm, suspended during therapy sessions and activated at completion of session ADL-Treatment Therapy Code Descriptions/Definitions Functional [place] Measure: 0=Not Assessed/NA 4=Minimal Assistance 1=Total Assistance 5=Supervision or Setup 2=Maximal Assistance 6=Modified [place] 3=Moderate Assistance 7=Complete IndependenceSCALE: Activities may be completed with or without assistive devices. 7-Hiewznvjhy-imhskho completes the activity by him/herself with no assistance from a helper. 5-Set-up or Clean-up Assistance-helper sets up or cleans up; patient completes activity. [place] assists only prior to or following the activity. 4-Supervision or Touching Assistance-helper provides verbal cues and/or touching/steadying and/or contact guard assistance as patient completes activity. Assistance may be provided throughout the activity or intermittently. 3-Partial/Moderate Assistance-helper does LESS THAN HALF the effort. [place] lifts, holds or supports trunk or limbs, but provides less than half the effort. 2-Substantial/Maximal Assistance-helper does MORE THAN HALF the effort. [place] lifts or holds trunk or limbs and provides more than half the effort. 3-Cnkuqdlsm-pjqpfm does ALL the effort. Patient does none of the effort to complete the activity. Or, the assistance of 2 or more helpers is required for the patient to complete the activity. If activity was not attempted, code reason: 7-Patient Refused. 9-Not Applicable-not attempted and the patient did not perform the activity before the current illness, exacerbation or injury. 10-Not Attempted due to Environmental Limitations-(lack of equipment, weather restraints, etc.). 88-Not Attempted due to Medical Conditions or Safety Concerns. Eating (QC): 6 Oral Hygiene (QC): 4 (LOB posteriorly at sink with FWW and Gait belt , Moderate assist from OT to control and prevent fall. Facilitation to use RUE functional ROM and assess pain level) On/Off Footwear: 4 (requires next step verbal cues and tactile stimuli to advance task) Toileting Hygiene (QC): 4 Toilet Transfer (QC): 3 (poor sequencing and command following.) Other Treatment AROM to RUE, multi directional reach in standing Education OT Patient Education: Correct positioning, Exercise program, Modified ADL techniques, Progress toward Goal/Update tx plan, Purpose of tx/functional activities, Reviewed precautions, Rehab process, Safety issues, Transfer techniques, Use of adapted equipment Teaching Recipient: Patient Teaching Methods: Demonstration, Discussion Response to Teaching: Verbalize Understanding, Reinforcement Needed OT Floral Arranger Goals Floral Arranger Goals Time Frame: Dec 02, 2022 Eating (QC): 6 Oral Hygiene (QC): 5 Toileting Hygiene (QC): 5 Shower/Bathe Self (QC): 5 Upper Body Dressing (QC): 5 Lower Body Dressing (QC): 5 On/Off Footwear (QC): 6 Additional Goals: 1-Demonstrate ADL Tasks, 2-Verbalize Understanding, 3- ImproveStrength/[place] 1=Demonstrate adherence to instructed precautions during ADL tasks. 2=Patient will verbalize/demonstrate understanding of assistive devices/modifications for ADL. 3=Patient will improve strength/tolerance for activity to enable patient to perform ADL's. OT Education/Plan Problem List/Assessment Assessment: Decreased Activ Tolerance, Decreased Safety Aware, Decreased UE Strength, Dependent Transfers, Impaired Cognition, Impaired Coordination, Impaired Funct Balance, Impaired Self-Care Skills, Restricted Funct UE ROM Discharge Recommendations Plan/Recommendations: Continue POC Therapy Discharge Recommendati: 24 Hour Supervision, Post Acute OT Comment Patient remains seated in recliner w/ call light education and in reach, tray table in front of patient and blanket on lap, chair sitter activated Treatment Plan/Plan of Care Patient would benefit from OT for education, treatment and training to promote independence in ADL's, mobility, safety and/or upper extremity function for ADL's. Plan of Care: ADL Retraining, Functional Mobility, Group Exercise/Act as Ind, UE Funct Exercise/Act Treatment Duration: Dec 02, 2022 Frequency: 3 times per week (3-5 times / week) Agreement: Yes Rehab Potential: Good Time Start Time: 08:21 Stop Time: 08:45 DATE: Nov 21, 2022 Total Time Billed (hr/min): 24 Billed Treatment Time 2 ADL 24 min VIPUL CUMMINGS OT Nov 21, 2022 09:25
--- NOTE | 2022-11-21 10:08 | Physical Therapy Daily Note ---
PT Daily Note-Current Subjective Patient agrees to PT. Pain Section J - Health Conditions 1. Rarely or not at all 2. Occasionally 3. Frequently 4. Almost constantly 8. Unable to answer Pain Effect on Sleep: 1 Pain Interference with Therapy: 3 Pain Interference w/Day-to-Day: 3 Mental Status Patient Orientation: Person, Time, Situation Transfers SCALE: Activities may be completed with or without assistive devices. 6-Iubmsfmytw-cxotmik completes the activity by him/herself with no assistance from a helper. 5-Set-up or Clean-up Assistance-helper sets up or cleans up; patient completes activity. [place] assists only prior to or following the activity. 4-Supervision or Touching Assistance-helper provides verbal cues and/or touching/steadying and/or contact guard assistance as patient completes activity. Assistance may be provided throughout the activity or intermittently. 3-Partial/Moderate Assistance-helper does LESS THAN HALF the effort. [place] lifts, holds or supports trunk or limbs, but provides less than half the effort. 2-Substantial/Maximal Assistance-helper does MORE THAN HALF the effort. [place] lifts or holds trunk or limbs and provides more than half the effort. 0-Nhrdbovmp-dbrnwg does ALL the effort. Patient does none of the effort to complete the activity. Or, the assistance of 2 or more helpers is required for the patient to complete the activity. If activity was not attempted, code reason: 7-Patient Refused. 9-Not Applicable-not attempted and the patient did not perform the activity before the current illness, exacerbation or injury. 10-Not Attempted due to Environmental Limitations-(lack of equipment, weather restraints, etc.). 88-Not Attempted due to Medical Conditions or Safety Concerns. Lying to Sitting/Side of Bed(Q: 3 Sit to Stand (QC): 3 Chair/Opf-bp-Ixhlz Xfer(QC): 4 Gait Training Distance: 150' Walk 10 feet (QC): 4 Walk 50 ft with 2 Turns(QC): 4 Walk 150 ft (QC): 4 Gait Assistive Device: FWW slow, drop foot left, functional gait sequence Exercises Supine Ex: Heel Slides, Straight leg raise Supine Reps: 10 Seated Therapy Exercises: Long arc quads Seated Reps: 15 Assessment Patient requires time to complete all functional tasks and is up in recliner with needs met. Patient, once upright, patient ambulates CGA to SBA with gait. PT Jail Goals Senior Technologist Goals PT Senior Technologist Goals Time Frame: Dec 09, 2022 Roll Left & Right (QC): 4 Sit to Lying (QC): 4 Lying-Sitting on Side/Bed(QC): 4 Sit to Stand (QC): 4 Chair/Tin-ex-Eezfg Xfer(QC): 4 Toilet Transfer (QC): 4 Walk 10 feet (QC): 4 Walk 50ft with 2 Turns (QC): 4 Walk 150 ft (QC): 4 PT Plan Treatment/Plan Treatment Plan: Continue Plan of Care Treatment Plan: Bed Mobility, Education, Functional Activity [place], Functional Strength, Gait, Safety, Therapeutic Exercise, Transfers Treatment Duration: Dec 09, 2022 Frequency: 6 times per week Estimated Hrs Per Day: .25 hour per day Time Time In: 750 Time Out: 813 DATE: Nov 21, 2022 Total Billed Treatment Time: 23 Total Billed Treatment 1 visit GT 13 min EX 10 min CLINT MAHONEY PT Nov 21, 2022 10:08
--- NOTE | 2022-11-21 11:04 | Progress Note ---
ANAYELI RIVAS I 11/21/22 1104: Subjective Date Seen by a Provider: Nov 21, 2022 Time Seen by a Provider: 09:12 Subjective/Events-last exam Juan Jose Jhaveri is a 82 year old male with a past medical history of dementia admitted for a fall while on chronic anticoagulation. Today is hospital day 3 and and he continues to have hip pain and he reports doing very little walking. His bruising continues to resolve. Denies cough, chest pain, shortness of breath today. Objective Exam Last Set of Vital Signs Vital Signs Date Time Temp Pulse Resp B/P (MAP) Pulse Ox O2 Delivery O2 Flow Rate FiO2 11/21/22 07:51 36.7 79 16 126/82 (97) 96 Room Air 11/19/22 23:20 Capillary Refill : Less Than 3 Seconds I&O Intake and Output 11/21/22 00:00 Intake Total 3280 ml Balance 3280 ml Intake Oral 1630 ml IV Total 1650 ml # Voids 6 # Urine Diapers 2 # Bowel Movements 4 General: Alert, Oriented X3 (To person, place, and time. Recent personal history is confused.) HEENT: Atraumatic, PERRLA Neck: Supple, No JVD Lungs: Clear to Auscultation Heart: Regular Rate, Normal S1, Normal S2 Abdomen: Normal Bowel Sounds, Soft Skin: Other (Ecchymosis present BUE in antecubital region) Psych/Mental Status: Mental Status NL Results Lab Laboratory Tests 11/21/22 05:52: White Blood Count 14.3H, Red Blood Count 3.42L, Hemoglobin 10.2L, Hematocrit 32L , Mean Corpuscular Volume 93, Mean Corpuscular Hemoglobin 30, Mean Corpuscular Hemoglobin Concent 32, Red Cell Distribution Width 13.3, Platelet Count 255, Mean Platelet Volume 11.8, Immature Granulocyte % (Auto) 1, Neutrophils (%) (Auto) 81H, Lymphocytes (%) (Auto) 7L, Monocytes (%) (Auto) 8, Eosinophils (%) (Auto) 3, Basophils (%) (Auto) 0, Neutrophils # (Auto) 11.6H, Lymphocytes # (Auto) 1.1, Monocytes # (Auto) 1.1H, Eosinophils # (Auto) 0.4H, Basophils # (Auto) 0.1, Immature Granulocyte # (Auto) 0.1, Sodium Level 140, Potassium Level 3.9, Chloride Level 111H, Carbon Dioxide Level 21, Anion Gap 8, Blood Urea Nitrogen 23H, Creatinine 0.76, Estimat Glomerular Filtration Rate 90, BUN/Creatinine Ratio 30, Glucose Level 107H, Calcium Level 8.9, Corrected Calcium 9.7, Total Bilirubin 1.2H, Aspartate Amino Transf (AST/SGOT) 22, Alanine Aminotransferase (ALT/SGPT) 37, Alkaline Phosphatase 64, Total Protein 6.1L, Albumin 3.0L Assessment/Plan Assessment/Plan Assess & Plan/Chief Complaint Contusion of right shoulder - closed injury, skin intact - imaging negative for fractures - continue PT/OT Left hip hematoma - Hip XR negative for fractures. - Symptomatic pain treatment - PT/OT Normocytic anemia - d/t blood loss with hematoma as above - Trending upwards from yesterday Leukocytosis - mildly elevated from yesterday - denies fever, localizing symptoms other than fall injuries Chronic anticoagulation - Continue home medication Physical debility Unable to complete IADL - PT/OT - Insurance does not qualify for inpatient rehab - group home likely necessary upon discharge - DC planningL: ML of [place] Hematuria (resolved) - traumatic insertion of catheter Diagnosis/Problems Diagnosis/Problems (1) Contusion of right shoulder Status: Acute Assessment & Plan: - CXR negative for fractures - Alternate Ibuprofen/tylenol for pain Qualifiers: Qualified Codes: S40.011A - Contusion of right shoulder, initial encounter (2) Hematuria Status: Acute Assessment & Plan: - Likely due to traumatic insertion of catheter - Monitor Qualifiers: Qualified Codes: R31.9 - Hematuria, unspecified (3) Chronic anticoagulation Status: Acute Assessment & Plan: - Unclear as to reason behind anticoagulation. - Continue home medications (4) Hematoma of left hip Status: Acute Assessment & Plan: - Hip XR negative for fractures. - Symptomatic pain treatment Qualifiers: Qualified Codes: S70.02XA - Contusion of left hip, initial encounter (5) Physical debility Status: Acute Assessment & Plan: - Unable to complete IADL - PT/OT - Consider for inpatient rehab Clinical Quality Measures DVT/VTE Risk/Contraindication: Contraindications-Pharm: Other *list below* Other: large hematoma and hematuria MARTITA GARCIA DO 11/22/22 0609: Supervisory-Addendum Brief Verification & Attestation Participated in pt care: history, MDM, physical Personally performed: exam, history, MDM, supervision of care Care discussed with: Medical Student Procedures: n/a Results interpretation: Verified all documentation Verification and Attestation of Medical Student E/M Service A medical student performed and documented this service in my presence. I reviewed and verified all information documented by the medical student and made modifications to such information, when appropriate. I personally performed the physical exam and medical decision making. Martita Garcia, Nov 22, 2022,06:09 ANAYELI RIVAS I Nov 21, 2022 11:04 MARTITA GARCIA DO Nov 22, 2022 06:09
[2022-11-21 12:00] VITALS: BP 102/63
[2022-11-21 15:40] VITALS: BP 102/51
[2022-11-21] MEDS: MONTELUKAST 10 MG (SINGULAIR) TAB PO SCH (19:20)
[2022-11-21 19:39] VITALS: BP 107/54
[2022-11-21 23:22] VITALS: BP 134/68
[2022-11-22 03:26] VITALS: BP 136/71
[2022-11-22 05:51] LABS: BASOPHILS % (AUTO) 0 % (0-10); EOSINOPHILS # (AUTO) 0.5 10^3/uL (0.0-0.3); EOSINOPHILS % (AUTO) 3 % (0-10); HEMATOCRIT 31 % (40-54); LYMPHOCYTES # (AUTO) 0.9 10^3/uL (1.0-4.0); LYMPHOCYTES % (AUTO) 6 % (12-44); MEAN CORPUSCULAR HEMOGLOBIN 30 pg (25-34); MEAN CORPUSCULAR HGB CONC 32 g/dL (32-36); MEAN CORPUSCULAR VOLUME 92 fL (80-99); MEAN PLATELET VOLUME 11.8 fL (9.0-12.2); MONOCYTES # (AUTO) 1.3 10^3/uL (0.0-1.0); MONOCYTES % (AUTO) 8 % (0-12); NEUTROPHILS # (AUTO) 12.9 10^3/uL (1.8-7.8); NEUTROPHILS % (AUTO) 82 % (42-75); PLATELET COUNT 284 10^3/uL (130-400); WHITE BLOOD COUNT 15.7 10^3/uL (4.3-11.0)
[2022-11-22 06:11] LABS: ALBUMIN 2.9 GM/DL (3.2-4.5); CALCIUM 9.1 MG/DL (8.5-10.1); CREATININE SERUM 0.76 MG/DL (0.60-1.30); POTASSIUM 3.9 MMOL/L (3.6-5.0)
[2022-11-22 07:34] VITALS: BP 124/77
[2022-11-22] MEDS: RT-ALBUTEROL SULF 2.5 MG/3 ML PRE-MIX VIAL INH SCH ×2 (08:59→21:59)
[2022-11-22] MEDS: RT--FLUTICASONE/SALMETEROL 113-14 (AIRDUO RespiCLICK) IH SCH ×3 (09:02→21:59)
[2022-11-22] MEDS: LOSARTAN 50 MG (COZAAR) TAB PO SCH (09:17)
[2022-11-22] MEDS: SENNOSIDES 8.6 MG (SENOKOT) TAB PO SCH ×2 (09:18→19:37)
[2022-11-22] MEDS: DIVALPROEX 250 MG DELAYED RELEASE (DEPAKOTE) TAB PO SCH ×2 (09:18→19:37)
[2022-11-22] MEDS: DOCUSATE SODIUM 100 MG (COLACE) CAP PO SCH ×2 (09:18→19:37)
--- NOTE | 2022-11-22 09:42 | Progress Note - Hospitalist ---
Subjective HPI/CC On Admission Date Seen by Provider: Nov 22, 2022 Time Seen by Provider: 10:00 Subjective/Events-last exam No major issues Less confusion Weakness Awaiting NH placement Review of Systems Musculoskeletal: leg pain Neurological: Confusion Objective Exam Vital Signs Vital Signs Date Time Temp Pulse Resp B/P (MAP) Pulse Ox O2 Delivery O2 Flow Rate FiO2 11/22/22 15:41 37.2 73 20 119/57 (77) 96 Room Air 11/19/22 23:20 Capillary Refill : Less Than 3 Seconds General Appearance: No Apparent Distress, WD/WN, Chronically ill Respiratory: Lungs Clear, Normal Breath Sounds Neurologic/Psychiatric: Alert, Depressed Affect, Disoriented Results/Procedures Lab Laboratory Tests 11/22/22 05:37 Patient resulted labs reviewed. Assessment/Plan Assessment and Plan Assess & Plan/Chief Complaint (1) Contusion of right shoulder Status: Acute Assessment & Plan: - CXR negative for fractures - Alternate Ibuprofen/tylenol for pain Qualifiers: Qualified Codes: S40.011A - Contusion of right shoulder, initial encounter (2) Hematuria Status: Acute Assessment & Plan: - Likely due to traumatic insertion of catheter - Monitor Qualifiers: Qualified Codes: R31.9 - Hematuria, unspecified (3) Chronic anticoagulation Status: Acute Assessment & Plan: - Unclear as to reason behind anticoagulation. - Continue home medications (4) Hematoma of left hip Status: Acute Assessment & Plan: - Hip XR negative for fractures. - Symptomatic pain treatment Qualifiers: Qualified Codes: S70.02XA - Contusion of left hip, initial encounter (5) Physical debility Status: Acute Assessment & Plan: - Unable to complete IADL - PT/OT - [facility] Clinical Quality Measures Admission Status Admission Dx Assessment: Fall Large hematoma Dementia HTN AF Frail status Plan: PT OT May need skilled DVT/VTE Risk/Contraindication: Contraindications-Pharm: Other *list below* Other: large hematoma and hematuria JO GARCIA DO Nov 22, 2022 09:41
--- NOTE | 2022-11-22 09:56 | Occupational Ther Daily Note ---
OT Current Status-Daily Note Subjective Supine in bed and confused w/ situation, alarm in place. Mental Status/Objective Patient Orientation: Person, Confused ADL-Treatment Toileting, LB garment change, hand hygiene in standing Therapy Code Descriptions/Definitions Functional [place] Measure: 0=Not Assessed/NA 4=Minimal Assistance 1=Total Assistance 5=Supervision or Setup 2=Maximal Assistance 6=Modified [place] 3=Moderate Assistance 7=Complete IndependenceSCALE: Activities may be completed with or without assistive devices. 0-Vcfjohqizm-vzwrjsr completes the activity by him/herself with no assistance from a helper. 5-Set-up or Clean-up Assistance-helper sets up or cleans up; patient completes activity. [place] assists only prior to or following the activity. 4-Supervision or Touching Assistance-helper provides verbal cues and/or touching/steadying and/or contact guard assistance as patient completes activity. Assistance may be provided throughout the activity or intermittently. 3-Partial/Moderate Assistance-helper does LESS THAN HALF the effort. [place] lifts, holds or supports trunk or limbs, but provides less than half the effort. 2-Substantial/Maximal Assistance-helper does MORE THAN HALF the effort. [place] lifts or holds trunk or limbs and provides more than half the effort. 9-Zznlsennr-udyyma does ALL the effort. Patient does none of the effort to complete the activity. Or, the assistance of 2 or more helpers is required for the patient to complete the activity. If activity was not attempted, code reason: 7-Patient Refused. 9-Not Applicable-not attempted and the patient did not perform the activity before the current illness, exacerbation or injury. 10-Not Attempted due to Environmental Limitations-(lack of equipment, weather restraints, etc.). 88-Not Attempted due to Medical Conditions or Safety Concerns. Lower Body Dressing (QC): 2 (BM in cont brief w/ velcro tabs. ) On/Off Footwear: 3 Toileting Hygiene (QC): 2 Toilet Transfer (QC): 3 (VCs for hand placement, position of FWW and sequence to stand/sit on ADLS surface) Other Treatment AROM RUE. Positive lag/drop and positive Hornblower's sign for rotator cuff injury. Education OT Patient Education: Correct positioning, Energy conservation, Exercise program, Home exercise program, Modified ADL techniques, Progress toward Goal/Update tx plan, Purpose of tx/functional activities, Reviewed precautions, Rehab process, Safety issues, Transfer techniques, Use of adapted equipment Teaching Recipient: Patient Teaching Methods: Demonstration, Discussion Response to Teaching: Verbalize Understanding, Return Demonstration, Reinforcement Needed OT Safety Fire Boss Goals Residential Goals Time Frame: Dec 02, 2022 Eating (QC): 6 Oral Hygiene (QC): 5 Toileting Hygiene (QC): 5 Shower/Bathe Self (QC): 5 Upper Body Dressing (QC): 5 Lower Body Dressing (QC): 5 On/Off Footwear (QC): 6 Additional Goals: 1-Demonstrate ADL Tasks, 2-Verbalize Understanding, 3-Im proveStrength/[place] 1=Demonstrate adherence to instructed precautions during ADL tasks. 2=Patient will verbalize/demonstrate understanding of assistive devices/modifications for ADL. 3=Patient will improve strength/tolerance for activity to enable patient to perform ADL's. OT Education/Plan Problem List/Assessment Assessment: Decreased Activ Tolerance, Decreased Safety Aware, Decreased UE Strength, Dependent Transfers, Impaired Bed Mobility, Impaired Cognition, Impaired Coordination, Impaired Funct Balance, Impaired Self-Care Skills, Restricted Funct UE ROM Discharge Recommendations Plan/Recommendations: Continue POC Therapy Discharge Recommendati: 24 Hour Supervision, Post Acute OT Treatment Plan/Plan of Care Treatment,Training & Education: Yes Patient would benefit from OT for education, treatment and training to promote independence in ADL's, mobility, safety and/or upper extremity function for ADL's. Plan of Care: ADL Retraining, Functional Mobility, Group Exercise/Act as Ind, UE Funct Exercise/Act Treatment Duration: Dec 02, 2022 Frequency: 3 times per week (3-5 times / week) Agreement: Yes Rehab Potential: Good Patient sitting in recliner w/ RT entering room, s\chair alarm activated, call cord in reach Time Start Time: 08:30 Stop Time: 08:57 DATE: Nov 22, 2022 Total Time Billed (hr/min): 27 Billed Treatment Time 1 visit ADL 1, EX 1 VIPUL CUMMINGS OT Nov 22, 2022 09:56
--- NOTE | 2022-11-22 11:44 | Physical Therapy Daily Note ---
PT Daily Note-Current Subjective Patient in recliner pre tx, agrees to PT but doesn't want to walk, has no complaints of pain. Patient eventually agrees to ambulate to the other side of his bed and lay down and eat lunch. Pain Section J - Health Conditions 1. Rarely or not at all 2. Occasionally 3. Frequently 4. Almost constantly 8. Unable to answer Pain Effect on Sleep: 1 Pain Interference with Therapy: 3 Pain Interference w/Day-to-Day: 3 Appearance Patient in bed post tx with nurse call, phone, tray, bed alarm on. Mental Status Patient Orientation: Person, Confused Transfers SCALE: Activities may be completed with or without assistive devices. 4-Qzwcacdpdr-lqhthwi completes the activity by him/herself with no assistance from a helper. 5-Set-up or Clean-up Assistance-helper sets up or cleans up; patient completes activity. [place] assists only prior to or following the activity. 4-Supervision or Touching Assistance-helper provides verbal cues and/or touching/steadying and/or contact guard assistance as patient completes activity. Assistance may be provided throughout the activity or intermittently. 3-Partial/Moderate Assistance-helper does LESS THAN HALF the effort. [place] lifts, holds or supports trunk or limbs, but provides less than half the effort. 2-Substantial/Maximal Assistance-helper does MORE THAN HALF the effort. [place] lifts or holds trunk or limbs and provides more than half the effort. 6-Qfayvtotx-mbtoid does ALL the effort. Patient does none of the effort to complete the activity. Or, the assistance of 2 or more helpers is required for the patient to complete the activity. If activity was not attempted, code reason: 7-Patient Refused. 9-Not Applicable-not attempted and the patient did not perform the activity before the current illness, exacerbation or injury. 10-Not Attempted due to Environmental Limitations-(lack of equipment, weather restraints, etc.). 88-Not Attempted due to Medical Conditions or Safety Concerns. Roll Left & Right (QC): 4 Sit to Lying (QC): 3 Sit to Stand (QC): 2 Max assist for sit to stand, after standing he was severely retropulsive, improved after taking a few steps. Gait Training Distance: 20 Walk 10 feet (QC): 3 Gait Persons Needed: 1 Gait Assistive Device: FWW min assist, needs assist with balance and help guiding walker Exercises Supine Ex: Ankle pumps, Heel Slides Supine Reps: 20 Treatments bed mobility and transfers, ambulation, LE ROM Assessment Current Status: Poor Progress unsteady, needed more assist to stand today PT Clinical Nursing Professor Goals [facility] Goals PT Clinical Nursing Professor Goals Time Frame: Dec 09, 2022 Roll Left & Right (QC): 4 Sit to Lying (QC): 4 Lying-Sitting on Side/Bed(QC): 4 Sit to Stand (QC): 4 Chair/Mdy-gw-Pidzm Xfer(QC): 4 Toilet Transfer (QC): 4 Walk 10 feet (QC): 4 Walk 50ft with 2 Turns (QC): 4 Walk 150 ft (QC): 4 PT Plan Problem List Problem List: Activity Tolerance, Functional Strength, Safety, Balance, Gait, Transfer, Bed Mobility, ROM Treatment/Plan Treatment Plan: Continue Plan of Care Treatment Plan: Bed Mobility, Education, Functional Activity [place], Functional Strength, Gait, Safety, Therapeutic Exercise, Transfers Treatment Duration: Dec 09, 2022 Frequency: 6 times per week Estimated Hrs Per Day: .25 hour per day Safety Risks/Education Patient Education: Gait Training, Transfer Techniques, Correct Positioning, Safety Issues Teaching Recipient: Patient Teaching Methods: Demonstration, Discussion Response to Teaching: Reinforcement Needed Time Time In: 1130 Time Out: 1140 DATE: Nov 22, 2022 Total Billed Treatment Time: 10 Total Billed Treatment 1 visit FA BERNA MAYFIELD PT Nov 22, 2022 11:44
[2022-11-22 12:00] VITALS: BP 124/62
[2022-11-22 15:41] VITALS: BP 119/57
[2022-11-22] MEDS: MONTELUKAST 10 MG (SINGULAIR) TAB PO SCH (19:37)
[2022-11-22 19:55] VITALS: BP 128/58
[2022-11-22 23:30] VITALS: BP 113/65
[2022-11-23] VITALS (7 sets, daily range): BP systolic 94–128; BP diastolic 53–76
[2022-11-23 05:29] LABS: BASOPHILS # (AUTO) 0.1 10^3/uL (0.0-0.1); BASOPHILS % (AUTO) 0 % (0-10); EOSINOPHILS # (AUTO) 0.3 10^3/uL (0.0-0.3); EOSINOPHILS % (AUTO) 2 % (0-10); HEMATOCRIT 31 % (40-54); LYMPHOCYTES # (AUTO) 1.1 10^3/uL (1.0-4.0); LYMPHOCYTES % (AUTO) 7 % (12-44); MEAN CORPUSCULAR HEMOGLOBIN 30 pg (25-34); MEAN CORPUSCULAR HGB CONC 33 g/dL (32-36); MEAN CORPUSCULAR VOLUME 91 fL (80-99); MEAN PLATELET VOLUME 11.9 fL (9.0-12.2); MONOCYTES # (AUTO) 1.4 10^3/uL (0.0-1.0); MONOCYTES % (AUTO) 9 % (0-12); NEUTROPHILS # (AUTO) 13.1 10^3/uL (1.8-7.8); NEUTROPHILS % (AUTO) 82 % (42-75); PLATELET COUNT 311 10^3/uL (130-400); WHITE BLOOD COUNT 16.1 10^3/uL (4.3-11.0)
[2022-11-23 05:42] LABS: ALBUMIN 2.9 GM/DL (3.2-4.5)
[2022-11-23 05:43] LABS: POTASSIUM 4.1 MMOL/L (3.6-5.0)
[2022-11-23 05:45] LABS: TOTAL PROTEIN 6.1 GM/DL (6.4-8.2)
[2022-11-23 05:47] LABS: BILIRUBIN,TOTAL 0.8 MG/DL (0.1-1.0)
[2022-11-23 05:49] LABS: CREATININE SERUM 0.78 MG/DL (0.60-1.30)
--- NOTE | 2022-11-23 06:01 | Progress Note - Hospitalist ---
Subjective HPI/CC On Admission Date Seen by Provider: Nov 23, 2022 Time Seen by Provider: 11:00 Subjective/Events-last exam No major changes Ready for NH when arranged No pain reported today Review of Systems General: Fatigue, Malaise Objective Exam Vital Signs Vital Signs Date Time Temp Pulse Resp B/P (MAP) Pulse Ox O2 Delivery O2 Flow Rate FiO2 11/24/22 03:20 37.5 79 20 113/72 (86) 95 Room Air 11/19/22 23:20 Capillary Refill : Less Than 3 Seconds General Appearance: No Apparent Distress, WD/WN, Chronically ill Respiratory: Lungs Clear, Normal Breath Sounds Cardiovascular: Regular Rate, Rhythm Neurologic/Psychiatric: Alert, No Motor/Sensory Deficits, Normal Mood/Affect, Disoriented Results/Procedures Lab Laboratory Tests 11/23/22 05:05 Patient resulted labs reviewed. Assessment/Plan Assessment and Plan Assess & Plan/Chief Complaint (1) Contusion of right shoulder Status: Acute Assessment & Plan: - CXR negative for fractures - Alternate Ibuprofen/tylenol for pain Qualifiers: Qualified Codes: S40.011A - Contusion of right shoulder, initial encounter (2) Hematuria Status: Acute Assessment & Plan: - Likely due to traumatic insertion of catheter - Monitor Qualifiers: Qualified Codes: R31.9 - Hematuria, unspecified (3) Chronic anticoagulation Status: Acute Assessment & Plan: - Unclear as to reason behind anticoagulation. - Continue home medications (4) Hematoma of left hip Status: Acute Assessment & Plan: - Hip XR negative for fractures. - Symptomatic pain treatment Qualifiers: Qualified Codes: S70.02XA - Contusion of left hip, initial encounter (5) Physical debility Status: Acute Assessment & Plan: - Unable to complete IADL - PT/OT - [facility] Clinical Quality Measures Admission Status Admission Dx Assessment: Fall Large hematoma Dementia HTN AF Frail status Plan: PT OT May need skilled DVT/VTE Risk/Contraindication: Contraindications-Pharm: Other *list below* Other: large hematoma and hematuria JO GARCIA DO Nov 23, 2022 06:01
[2022-11-23] MEDS: DIVALPROEX 250 MG DELAYED RELEASE (DEPAKOTE) TAB PO SCH ×2 (08:23→21:00)
[2022-11-23] MEDS: LOSARTAN 50 MG (COZAAR) TAB PO SCH (08:23)
[2022-11-23] MEDS: DOCUSATE SODIUM 100 MG (COLACE) CAP PO SCH ×2 (08:23→21:00)
[2022-11-23] MEDS: SENNOSIDES 8.6 MG (SENOKOT) TAB PO SCH ×2 (08:24→21:00)
--- NOTE | 2022-11-23 09:56 | Physical Therapy Daily Note ---
PT Daily Note-Current Subjective Patient agrees to PT. Pain Section J - Health Conditions 1. Rarely or not at all 2. Occasionally 3. Frequently 4. Almost constantly 8. Unable to answer Pain Effect on Sleep: 1 Pain Interference with Therapy: 3 Pain Interference w/Day-to-Day: 3 Mental Status Patient Orientation: Person Transfers SCALE: Activities may be completed with or without assistive devices. 9-Uxpvoxothz-gvearig completes the activity by him/herself with no assistance from a helper. 5-Set-up or Clean-up Assistance-helper sets up or cleans up; patient completes activity. [place] assists only prior to or following the activity. 4-Supervision or Touching Assistance-helper provides verbal cues and/or touching/steadying and/or contact guard assistance as patient completes activity. Assistance may be provided throughout the activity or intermittently. 3-Partial/Moderate Assistance-helper does LESS THAN HALF the effort. [place] lifts, holds or supports trunk or limbs, but provides less than half the effort. 2-Substantial/Maximal Assistance-helper does MORE THAN HALF the effort. [place] lifts or holds trunk or limbs and provides more than half the effort. 4-Wlyeitrrg-njdbee does ALL the effort. Patient does none of the effort to complete the activity. Or, the assistance of 2 or more helpers is required for the patient to complete the activity. If activity was not attempted, code reason: 7-Patient Refused. 9-Not Applicable-not attempted and the patient did not perform the activity before the current illness, exacerbation or injury. 10-Not Attempted due to Environmental Limitations-(lack of equipment, weather restraints, etc.). 88-Not Attempted due to Medical Conditions or Safety Concerns. Lying to Sitting/Side of Bed(Q: 3 Sit to Stand (QC): 3 Chair/Oni-sr-Jooak Xfer(QC): 3 Gait Training Distance: 75' Walk 10 feet (QC): 3 Walk 50 ft with 2 Turns(QC): 3 Gait Assistive Device: FWW functional with increase distance Assessment Patient incontinent urine requiring dependent assist to cleanse and change. Patient up in recliner with chair alarm activated. PT Mcc Goals Mcc Goals PT Mcc Goals Time Frame: Dec 09, 2022 Roll Left & Right (QC): 4 Sit to Lying (QC): 4 Lying-Sitting on Side/Bed(QC): 4 Sit to Stand (QC): 4 Chair/Zui-ma-Xneij Xfer(QC): 4 Toilet Transfer (QC): 4 Walk 10 feet (QC): 4 Walk 50ft with 2 Turns (QC): 4 Walk 150 ft (QC): 4 PT Plan Treatment/Plan Treatment Plan: Continue Plan of Care Treatment Plan: Bed Mobility, Education, Functional Activity [place], Functional Strength, Gait, Safety, Therapeutic Exercise, Transfers Treatment Duration: Dec 09, 2022 Frequency: 6 times per week Estimated Hrs Per Day: .25 hour per day Time Time In: 833 Time Out: 847 DATE: Nov 23, 2022 Total Billed Treatment Time: 14 Total Billed Treatment 1 visit FA 14 min CLINT MAHONEY PT Nov 23, 2022 09:56
[2022-11-23] MEDS: RT-ALBUTEROL SULF 2.5 MG/3 ML PRE-MIX VIAL INH SCH ×2 (10:20→22:14)
[2022-11-23] MEDS: RT--FLUTICASONE/SALMETEROL 113-14 (AIRDUO RespiCLICK) IH SCH ×2 (10:21→22:13)
--- NOTE | 2022-11-23 10:27 | Occupational Ther Daily Note ---
OT Current Status-Daily Note Subjective Up in recliner watching tv Mental Status/Objective Patient Orientation: Person, Confused On most orientation interviews patient report events of 2 weeks ago. [place] hunting, driving a truck to , making a delivery, visiting a friend. does not recall being the hospital and thinks he is here on a visit. ADL-Treatment On arrival patient in recliner barefoot. OT located yellow nonskid socks to be saturated. OT provided clean new nonskid socks Therapy Code Descriptions/Definitions Functional [place] Measure: 0=Not Assessed/NA 4=Minimal Assistance 1=Total Assistance 5=Supervision or Setup 2=Maximal Assistance 6=Modified [place] 3=Moderate Assistance 7=Complete IndependenceSCALE: Activities may be completed with or without assistive devices. 4-Lscektzoht-nmchjox completes the activity by him/herself with no assistance from a helper. 5-Set-up or Clean-up Assistance-helper sets up or cleans up; patient completes activity. [place] assists only prior to or following the activity. 4-Supervision or Touching Assistance-helper provides verbal cues and/or touching/steadying and/or contact guard assistance as patient completes activity. Assistance may be provided throughout the activity or intermittently. 3-Partial/Moderate Assistance-helper does LESS THAN HALF the effort. [place] lifts, holds or supports trunk or limbs, but provides less than half the effort. 2-Substantial/Maximal Assistance-helper does MORE THAN HALF the effort. [place] lifts or holds trunk or limbs and provides more than half the effort. 5-Ojmacdyjc-mxrufn does ALL the effort. Patient does none of the effort to complete the activity. Or, the assistance of 2 or more helpers is required for the patient to complete the activity. If activity was not attempted, code reason: 7-Patient Refused. 9-Not Applicable-not attempted and the patient did not perform the activity before the current illness, exacerbation or injury. 10-Not Attempted due to Environmental Limitations-(lack of equipment, weather restraints, etc.). 88-Not Attempted due to Medical Conditions or Safety Concerns. Lower Body Dressing (QC): 3 (Brief aligned for comfort in standing w/ FWW) On/Off Footwear: 2 Patient reports pain in LLE and reports inability to move LE, OT facilitated static stretch and distraction to increase flexibility and ROM of hip flexion, knee flexion and dorsal flexion to don sock max assist over toes. Patient able to complete task w/ OT positioning and supporting LLE in crossing LLE over right knee Other Treatment Repeat sit/stand mod assist 75% VC w/ reps x3 and standing functional multidirectional reach w/ Mod assist to sustain balance over COG w/ FWW and gait belt Education OT Patient Education: Correct positioning, Energy conservation, Home exercise program, Modified ADL techniques, Progress toward Goal/Update tx plan, Purpose of tx/functional activities, Reviewed precautions, Rehab process, Safety issues, Transfer techniques Teaching Recipient: Patient Teaching Methods: Demonstration Response to Teaching: Verbalize Understanding, Return Demonstration, Reinforcement Needed Patient has limited retention of instruction, orientation and safety training. Patient ended session w/ sitting recliner w/ activated chair alarm OT [facility]dc Goals Manager [employer] Goals Time Frame: Dec 02, 2022 Eating (QC): 6 Oral Hygiene (QC): 5 Toileting Hygiene (QC): 5 Shower/Bathe Self (QC): 5 Upper Body Dressing (QC): 5 Lower Body Dressing (QC): 5 On/Off Footwear (QC): 6 Additional Goals: 1-Demonstrate ADL Tasks, 2-Verbalize Understanding, 3- ImproveStrength/[place] 1=Demonstrate adherence to instructed precautions during ADL tasks. 2=Patient will verbalize/demonstrate understanding of assistive devices/modifications for ADL. 3=Patient will improve strength/tolerance for activity to enable patient to perform ADL's. OT Education/Plan Problem List/Assessment Assessment: Decreased Activ Tolerance, Decreased Safety Aware, Decreased UE Strength, Impaired Bed Mobility, Impaired Cognition, Impaired Coordination, Impaired Funct Balance, Impaired Self-Care Skills, Restricted Funct UE ROM Noted improvement in use of RUE w/ functional task and reduce c/o pain to shoulder Discharge Recommendations Plan/Recommendations: Continue POC Therapy Discharge Recommendati: 24 Hour Supervision, Post Acute OT Barriers to Progress Limited retention Treatment Plan/Plan of Care Treatment,Training & Education: Yes Patient would benefit from OT for education, treatment and training to promote independence in ADL's, mobility, safety and/or upper extremity function for ADL's. Plan of Care: ADL Retraining, Cognitive Retraining, Concurrent Therapy, Functional Mobility, Group Exercise/Act as Ind, UE Funct Exercise/Act Treatment Duration: Dec 02, 2022 Frequency: 3 times per week (3-5 times / week) Agreement: Yes Rehab Potential: Good Time Start Time: 09:54 Stop Time: 10:18 DATE: Nov 23, 2022 Total Time Billed (hr/min): 24 Billed Treatment Time 1 ADL 16min 1 EX 8 min VIPUL CUMMINGS OT Nov 23, 2022 10:26
[2022-11-23] MEDS: MONTELUKAST 10 MG (SINGULAIR) TAB PO SCH (21:00)
[2022-11-24 03:20] VITALS: BP 113/72
--- NOTE | 2022-11-24 06:11 | Progress Note - Hospitalist ---
Subjective HPI/CC On Admission Date Seen by Provider: Nov 24, 2022 Time Seen by Provider: 11:00 Subjective/Events-last exam No issues reported Awaiting [facility] Review of Systems General: Fatigue, Malaise Objective Exam Vital Signs Vital Signs Date Time Temp Pulse Resp B/P (MAP) Pulse Ox O2 Delivery O2 Flow Rate FiO2 11/24/22 20:08 Room Air 0.00 11/24/22 20:04 93 11/24/22 15:23 36.9 71 20 115/70 (85) Capillary Refill : Less Than 3 Seconds General Appearance: No Apparent Distress, WD/WN, Chronically ill Results/Procedures Lab Laboratory Tests 11/24/22 13:41 Patient resulted labs reviewed. Assessment/Plan Assessment and Plan Assess & Plan/Chief Complaint (1) Contusion of right shoulder Status: Acute Assessment & Plan: - CXR negative for fractures - Alternate Ibuprofen/tylenol for pain Qualifiers: Qualified Codes: S40.011A - Contusion of right shoulder, initial encounter (2) Hematuria Status: Acute Assessment & Plan: - Likely due to traumatic insertion of catheter - Monitor Qualifiers: Qualified Codes: R31.9 - Hematuria, unspecified (3) Chronic anticoagulation Status: Acute Assessment & Plan: - Unclear as to reason behind anticoagulation. - Continue home medications (4) Hematoma of left hip Status: Acute Assessment & Plan: - Hip XR negative for fractures. - Symptomatic pain treatment Qualifiers: Qualified Codes: S70.02XA - Contusion of left hip, initial encounter (5) Physical debility Status: Acute Assessment & Plan: - Unable to complete IADL - PT/OT - [facility] Clinical Quality Measures Admission Status Admission Dx Assessment: Fall Large hematoma Dementia HTN AF Frail status Plan: PT OT May need skilled DVT/VTE Risk/Contraindication: Contraindications-Pharm: Other *list below* Other: large hematoma and hematuria JO GARCIA DO Nov 24, 2022 06:11
[2022-11-24] MEDS: RT-ALBUTEROL SULF 2.5 MG/3 ML PRE-MIX VIAL INH SCH ×2 (07:35→20:03)
[2022-11-24] MEDS: RT--FLUTICASONE/SALMETEROL 113-14 (AIRDUO RespiCLICK) IH SCH ×2 (07:35→20:03)
[2022-11-24 08:48] VITALS: BP 114/71
--- NOTE | 2022-11-24 10:17 | Physical Therapy Progress Note ---
Therapy Progress Note Patient more confused on this date. Patient adamantly declined PT stating,"I don't feel good." RN notified. PT will attempt later today or tomorrow a.m. 1 ref CLINT MAHONEY PT Nov 24, 2022 10:17
[2022-11-24] MEDS: DIVALPROEX 250 MG DELAYED RELEASE (DEPAKOTE) TAB PO SCH ×2 (10:20→19:35)
[2022-11-24] MEDS: DOCUSATE SODIUM 100 MG (COLACE) CAP PO SCH ×2 (10:20→19:36)
[2022-11-24] MEDS: LOSARTAN 50 MG (COZAAR) TAB PO SCH (10:21)
[2022-11-24] MEDS: SENNOSIDES 8.6 MG (SENOKOT) TAB PO SCH ×2 (10:21→19:36)
[2022-11-24 12:32] VITALS: BP 120/78
[2022-11-24 13:50] LABS: BASOPHILS % (AUTO) 0 % (0-10); EOSINOPHILS # (AUTO) 0.3 10^3/uL (0.0-0.3); EOSINOPHILS % (AUTO) 2 % (0-10); HEMATOCRIT 31 % (40-54); HEMOGLOBIN 10.2 g/dL (13.3-17.7); LYMPHOCYTES # (AUTO) 0.8 10^3/uL (1.0-4.0); LYMPHOCYTES % (AUTO) 6 % (12-44); MEAN CORPUSCULAR HEMOGLOBIN 30 pg (25-34); MEAN CORPUSCULAR HGB CONC 33 g/dL (32-36); MEAN CORPUSCULAR VOLUME 92 fL (80-99); MEAN PLATELET VOLUME 11.3 fL (9.0-12.2); MONOCYTES # (AUTO) 1.3 10^3/uL (0.0-1.0); MONOCYTES % (AUTO) 10 % (0-12); NEUTROPHILS # (AUTO) 11.2 10^3/uL (1.8-7.8); NEUTROPHILS % (AUTO) 81 % (42-75); PLATELET COUNT 321 10^3/uL (130-400); WHITE BLOOD COUNT 13.8 10^3/uL (4.3-11.0)
[2022-11-24 14:01] LABS: ALBUMIN 2.8 GM/DL (3.2-4.5)
[2022-11-24 14:02] LABS: POTASSIUM 3.9 MMOL/L (3.6-5.0)
[2022-11-24 14:03] LABS: CALCIUM 8.9 MG/DL (8.5-10.1)
[2022-11-24 14:06] LABS: BILIRUBIN,TOTAL 0.6 MG/DL (0.1-1.0)
[2022-11-24 14:08] LABS: CREATININE SERUM 0.73 MG/DL (0.60-1.30)
[2022-11-24 15:23] VITALS: BP 115/70
[2022-11-24] MEDS: ACETAMINOPHEN 325 MG TABLET PO PRN (18:17)
[2022-11-24] MEDS: MONTELUKAST 10 MG (SINGULAIR) TAB PO SCH (19:35)
[2022-11-24] MEDS ORDERED: RT-ALBUTEROL SULF 2.5 MG/3 ML PRE-MIX VIAL IH PRN (20:45)
[2022-11-24] MEDS ORDERED: NON-FORMULARY MEDICATION 1 EA EA (Budesonide/Formoterol Fumarate (Symbicort 160-4.5 Mcg In IH SCH (21:00)
[2022-11-24] MEDS ORDERED: ARTIFICAL TEARS 0.4 ML UNIT DOSE (REFRESH PLUS) OU PRN (21:45)
[2022-11-24] MEDS: APIXABAN 2.5 MG (ELIQUIS) TABLET PO SCH (22:33)
[2022-11-24 23:09] VITALS: BP 109/55
[2022-11-25 04:58] LABS: BASOPHILS # (AUTO) 0.1 10^3/uL (0.0-0.1); BASOPHILS % (AUTO) 0 % (0-10); EOSINOPHILS # (AUTO) 0.4 10^3/uL (0.0-0.3); EOSINOPHILS % (AUTO) 3 % (0-10); HEMATOCRIT 31 % (40-54); HEMOGLOBIN 10.1 g/dL (13.3-17.7); LYMPHOCYTES # (AUTO) 1.3 10^3/uL (1.0-4.0); LYMPHOCYTES % (AUTO) 9 % (12-44); MEAN CORPUSCULAR HEMOGLOBIN 30 pg (25-34); MEAN CORPUSCULAR HGB CONC 33 g/dL (32-36); MEAN CORPUSCULAR VOLUME 91 fL (80-99); MEAN PLATELET VOLUME 11.4 fL (9.0-12.2); MONOCYTES # (AUTO) 1.3 10^3/uL (0.0-1.0); MONOCYTES % (AUTO) 9 % (0-12); NEUTROPHILS # (AUTO) 11.3 10^3/uL (1.8-7.8); NEUTROPHILS % (AUTO) 78 % (42-75); PLATELET COUNT 272 10^3/uL (130-400); WHITE BLOOD COUNT 14.5 10^3/uL (4.3-11.0)
[2022-11-25 05:26] LABS: ALBUMIN 2.7 GM/DL (3.2-4.5)
[2022-11-25 05:28] LABS: CALCIUM 8.7 MG/DL (8.5-10.1)
[2022-11-25 05:29] LABS: TOTAL PROTEIN 5.7 GM/DL (6.4-8.2)
[2022-11-25 05:31] LABS: BILIRUBIN,TOTAL 0.6 MG/DL (0.1-1.0)
[2022-11-25 05:32] LABS: CREATININE SERUM 0.7 MG/DL (0.60-1.30)
--- NOTE | 2022-11-25 06:38 | Progress Note - Hospitalist ---
Subjective HPI/CC On Admission Date Seen by Provider: Nov 25, 2022 Time Seen by Provider: 11:00 Subjective/Events-last exam No major issues Awaiting long term placement Review of Systems General: Fatigue Neurological: Confusion Objective Exam Vital Signs Vital Signs Date Time Temp Pulse Resp B/P (MAP) Pulse Ox O2 Delivery O2 Flow Rate FiO2 11/25/22 11:17 36.7 73 24 95/57 (70) 93 Room Air 11/25/22 07:52 0.00 Capillary Refill : Less Than 3 Seconds General Appearance: No Apparent Distress, WD/WN, Chronically ill Respiratory: Lungs Clear, Normal Breath Sounds Cardiovascular: Regular Rate, Rhythm Neurologic/Psychiatric: Alert, Disoriented Results/Procedures Lab Laboratory Tests 11/24/22 13:41 11/25/22 04:40 Patient resulted labs reviewed. Assessment/Plan Assessment and Plan Assess & Plan/Chief Complaint (1) Contusion of right shoulder Status: Acute Assessment & Plan: - CXR negative for fractures - Alternate Ibuprofen/tylenol for pain Qualifiers: Qualified Codes: S40.011A - Contusion of right shoulder, initial encounter (2) Hematuria Status: Acute Assessment & Plan: - Likely due to traumatic insertion of catheter - Monitor Qualifiers: Qualified Codes: R31.9 - Hematuria, unspecified (3) Chronic anticoagulation Status: Acute Assessment & Plan: - Unclear as to reason behind anticoagulation. - Continue home medications (4) Hematoma of left hip Status: Acute Assessment & Plan: - Hip XR negative for fractures. - Symptomatic pain treatment Qualifiers: Qualified Codes: S70.02XA - Contusion of left hip, initial encounter (5) Physical debility Status: Acute Assessment & Plan: - Unable to complete IADL - PT/OT - [facility] Clinical Quality Measures Admission Status Admission Dx Assessment: Fall Large hematoma Dementia HTN AF Frail status Plan: PT OT May need skilled DVT/VTE Risk/Contraindication: Contraindications-Pharm: Other *list below* Other: large hematoma and hematuria JO GARCIA DO Nov 25, 2022 06:38
[2022-11-25] MEDS: RT--FLUTICASONE/SALMETEROL 113-14 (AIRDUO RespiCLICK) IH SCH ×2 (07:52→19:41)
[2022-11-25 07:55] VITALS: BP 105/57
[2022-11-25] MEDS: ASPIRIN 81 MG CHEW (CHILDREN'S ASA) PO SCH (08:42)
[2022-11-25] MEDS: DIVALPROEX 250 MG DELAYED RELEASE (DEPAKOTE) TAB PO SCH ×2 (08:42→19:15)
[2022-11-25] MEDS: LOSARTAN 50 MG (COZAAR) TAB PO SCH (08:43)
[2022-11-25] MEDS: DOCUSATE SODIUM 100 MG (COLACE) CAP PO SCH ×2 (08:43→19:15)
[2022-11-25] MEDS: APIXABAN 2.5 MG (ELIQUIS) TABLET PO SCH ×2 (08:43→19:15)
[2022-11-25] MEDS: SENNOSIDES 8.6 MG (SENOKOT) TAB PO SCH ×2 (08:43→19:15)
[2022-11-25] MEDS: SERTRALINE 50 MG (ZOLOFT) TABLET PO SCH (08:43)
[2022-11-25] MEDS: LORATADINE (CLARITIN) 10 MG TAB PO SCH (08:44)
[2022-11-25] MEDS ORDERED: NON-FORMULARY MEDICATION 1 EA EA (Olmesartan Medoxomil 20 MG) PO SCH (09:00)
--- NOTE | 2022-11-25 10:52 | Physical Therapy Progress Note ---
Therapy Progress Note Attempted to see patient for PT treatment. Patient refuses. When asked if he was hurting or feeling ill, he states "No, I just dont' want to." Patient educated on the benefits of activity to promote healing. Will attempt treatment next available treatment session. KENIA VALENTE PT Nov 25, 2022 10:52
[2022-11-25 11:17] VITALS: BP 95/57
[2022-11-25 16:46] VITALS: BP 104/68
[2022-11-25] MEDS: MONTELUKAST 10 MG (SINGULAIR) TAB PO SCH (19:15)
[2022-11-25 19:36] VITALS: BP 128/77
[2022-11-25] MEDS: ACETAMINOPHEN 325 MG TABLET PO PRN (19:53)
[2022-11-25 23:43] VITALS: BP 98/52
[2022-11-26 03:42] VITALS: BP 108/53
[2022-11-26 06:06] LABS: BASOPHILS % (AUTO) 0 % (0-10); EOSINOPHILS # (AUTO) 0.4 10^3/uL (0.0-0.3); EOSINOPHILS % (AUTO) 2 % (0-10); HEMATOCRIT 32 % (40-54); HEMOGLOBIN 10.1 g/dL (13.3-17.7); LYMPHOCYTES # (AUTO) 1.2 10^3/uL (1.0-4.0); LYMPHOCYTES % (AUTO) 7 % (12-44); MEAN CORPUSCULAR HEMOGLOBIN 29 pg (25-34); MEAN CORPUSCULAR HGB CONC 32 g/dL (32-36); MEAN CORPUSCULAR VOLUME 92 fL (80-99); MEAN PLATELET VOLUME 12.2 fL (9.0-12.2); MONOCYTES # (AUTO) 1.5 10^3/uL (0.0-1.0); MONOCYTES % (AUTO) 9 % (0-12); NEUTROPHILS # (AUTO) 13.4 10^3/uL (1.8-7.8); NEUTROPHILS % (AUTO) 81 % (42-75); PLATELET COUNT 350 10^3/uL (130-400); WHITE BLOOD COUNT 16.7 10^3/uL (4.3-11.0)
[2022-11-26 06:30] LABS: ALBUMIN 2.8 GM/DL (3.2-4.5); POTASSIUM 3.9 MMOL/L (3.6-5.0)
[2022-11-26 06:32] LABS: CALCIUM 8.9 MG/DL (8.5-10.1)
[2022-11-26 06:33] LABS: TOTAL PROTEIN 6.1 GM/DL (6.4-8.2)
[2022-11-26 06:35] LABS: BILIRUBIN,TOTAL 0.6 MG/DL (0.1-1.0)
[2022-11-26 06:36] LABS: CREATININE SERUM 0.79 MG/DL (0.60-1.30)
[2022-11-26 06:46] LABS: ELLIPT/OVALOCYTES SLIGHT; EOSINOPHILS % (MANUAL) 1 %; LYMPHOCYTES % (MANUAL) 5 %; MONOCYTES % (MANUAL) 4 %; NEUTROPHILS % (MANUAL) 90 %
[2022-11-26] MEDS: RT--FLUTICASONE/SALMETEROL 113-14 (AIRDUO RespiCLICK) IH SCH ×2 (07:18→19:10)
[2022-11-26 07:44] VITALS: BP 91/58
[2022-11-26] MEDS: LOSARTAN 50 MG (COZAAR) TAB PO SCH (07:54)
[2022-11-26] MEDS: DOCUSATE SODIUM 100 MG (COLACE) CAP PO SCH ×2 (07:55→19:45)
[2022-11-26] MEDS: SENNOSIDES 8.6 MG (SENOKOT) TAB PO SCH ×2 (07:56→19:45)
[2022-11-26] MEDS: ASPIRIN 81 MG CHEW (CHILDREN'S ASA) PO SCH (07:58)
[2022-11-26] MEDS: DIVALPROEX 250 MG DELAYED RELEASE (DEPAKOTE) TAB PO SCH ×2 (07:58→19:44)
[2022-11-26] MEDS: SERTRALINE 50 MG (ZOLOFT) TABLET PO SCH (07:58)
[2022-11-26] MEDS: APIXABAN 2.5 MG (ELIQUIS) TABLET PO SCH ×2 (07:58→19:44)
[2022-11-26] MEDS: LORATADINE (CLARITIN) 10 MG TAB PO SCH (07:58)
--- NOTE | 2022-11-26 07:58 | Progress Note - Hospitalist ---
Subjective HPI/CC On Admission Date Seen by Provider: Nov 26, 2022 Time Seen by Provider: 11:00 Subjective/Events-last exam Patient running fever Cough is more productive We will check blood cultures and swab for COVID and flu Chest x-ray ordered Evidence of sepsis Holding losartan since his blood pressure cellulitis does not really need it but no indication of sepsis Review of Systems Pulmonary: Cough Objective Exam Vital Signs Vital Signs Date Time Temp Pulse Resp B/P (MAP) Pulse Ox O2 Delivery O2 Flow Rate FiO2 11/26/22 11:33 37.2 72 16 100/55 (70) 94 Room Air 11/25/22 07:52 0.00 Capillary Refill : Less Than 3 Seconds General Appearance: No Apparent Distress, WD/WN, Chronically ill Respiratory: Lungs Clear, Normal Breath Sounds Cardiovascular: Regular Rate, Rhythm Neurologic/Psychiatric: Alert, Oriented x3, Disoriented Results/Procedures Lab Laboratory Tests 11/26/22 05:22 Patient resulted labs reviewed. Assessment/Plan Assessment and Plan Assess & Plan/Chief Complaint (1) Contusion of right shoulder Status: Acute Assessment & Plan: - CXR negative for fractures - Alternate Ibuprofen/tylenol for pain Qualifiers: Qualified Codes: S40.011A - Contusion of right shoulder, initial encounter (2) Hematuria Status: Acute Assessment & Plan: - Likely due to traumatic insertion of catheter - Monitor Qualifiers: Qualified Codes: R31.9 - Hematuria, unspecified (3) Chronic anticoagulation Status: Acute Assessment & Plan: - Unclear as to reason behind anticoagulation. - Continue home medications (4) Hematoma of left hip Status: Acute Assessment & Plan: - Hip XR negative for fractures. - Symptomatic pain treatment Qualifiers: Qualified Codes: S70.02XA - Contusion of left hip, initial encounter (5) Physical debility Status: Acute Assessment & Plan: - Unable to complete IADL - PT/OT - [facility] Plan: Blood cultures Chest x-ray COVID and flu swab Clinical Quality Measures Admission Status Admission Dx Assessment: Fall Large hematoma Dementia HTN AF Frail status Plan: PT OT May need skilled DVT/VTE Risk/Contraindication: Contraindications-Pharm: Other *list below* Other: large hematoma and hematuria JO GARCIA DO Nov 26, 2022 07:58
[2022-11-26 08:19] LABS: ABSOLUTE RETIC # 55 10e9/uL (24-90); RETICULOCYTE % 1.58 % (0.50-2.40)
[2022-11-26 11:33] VITALS: BP 100/55
--- NOTE | 2022-11-26 11:55 | Diagnostic Imaging Report ---
CHEST 1 VIEW, AP/PA ONLY Indication: Fever Comparison: 11/19/2022 Findings: No focal airspace disease in the visualized lungs. No pleural effusion or pneumothorax. Normal cardiomediastinal silhouette. Impression: 1. No acute cardiopulmonary process by portable radiography. Dictated by: Dictated on workstation # [id number]
[2022-11-26 15:05] VITALS: BP 111/71
[2022-11-26] MEDS: MONTELUKAST 10 MG (SINGULAIR) TAB PO SCH (19:44)
[2022-11-26 20:36] VITALS: BP 99/63
[2022-11-26 23:01] VITALS: BP 112/54
[2022-11-27 03:36] VITALS: BP 111/56
[2022-11-27 05:39] LABS: BASOPHILS % (AUTO) 0 % (0-10); EOSINOPHILS # (AUTO) 0.2 10^3/uL (0.0-0.3); EOSINOPHILS % (AUTO) 1 % (0-10); HEMATOCRIT 30 % (40-54); HEMOGLOBIN 9.6 g/dL (13.3-17.7); LYMPHOCYTES # (AUTO) 1.4 10^3/uL (1.0-4.0); LYMPHOCYTES % (AUTO) 8 % (12-44); MEAN CORPUSCULAR HEMOGLOBIN 29 pg (25-34); MEAN CORPUSCULAR HGB CONC 32 g/dL (32-36); MEAN CORPUSCULAR VOLUME 92 fL (80-99); MEAN PLATELET VOLUME 11.2 fL (9.0-12.2); MONOCYTES # (AUTO) 1.5 10^3/uL (0.0-1.0); MONOCYTES % (AUTO) 8 % (0-12); NEUTROPHILS # (AUTO) 14.3 10^3/uL (1.8-7.8); NEUTROPHILS % (AUTO) 81 % (42-75); PLATELET COUNT 374 10^3/uL (130-400); WHITE BLOOD COUNT 17.6 10^3/uL (4.3-11.0)
[2022-11-27 05:51] LABS: ALBUMIN 2.7 GM/DL (3.2-4.5); POTASSIUM 3.8 MMOL/L (3.6-5.0)
[2022-11-27 05:52] LABS: CALCIUM 8.7 MG/DL (8.5-10.1)
[2022-11-27 05:53] LABS: TOTAL PROTEIN 6.1 GM/DL (6.4-8.2)
[2022-11-27 05:55] LABS: BILIRUBIN,TOTAL 0.5 MG/DL (0.1-1.0)
[2022-11-27 05:57] LABS: CREATININE SERUM 0.8 MG/DL (0.60-1.30)
[2022-11-27 07:16] VITALS: BP 108/67
[2022-11-27] MEDS: RT--FLUTICASONE/SALMETEROL 113-14 (AIRDUO RespiCLICK) IH SCH ×2 (08:12→22:19)
--- NOTE | 2022-11-27 09:25 | Physical Therapy Daily Note ---
PT Daily Note-Current Subjective Patient agrees to PT. Pain Section J - Health Conditions 1. Rarely or not at all 2. Occasionally 3. Frequently 4. Almost constantly 8. Unable to answer Pain Effect on Sleep: 1 Pain Interference with Therapy: 3 Pain Interference w/Day-to-Day: 3 Mental Status Patient Orientation: Person Transfers SCALE: Activities may be completed with or without assistive devices. 5-Qmhxayizmy-vlqfpry completes the activity by him/herself with no assistance from a helper. 5-Set-up or Clean-up Assistance-helper sets up or cleans up; patient completes activity. [place] assists only prior to or following the activity. 4-Supervision or Touching Assistance-helper provides verbal cues and/or touching/steadying and/or contact guard assistance as patient completes activity. Assistance may be provided throughout the activity or intermittently. 3-Partial/Moderate Assistance-helper does LESS THAN HALF the effort. [place] lifts, holds or supports trunk or limbs, but provides less than half the effort. 2-Substantial/Maximal Assistance-helper does MORE THAN HALF the effort. [place] lifts or holds trunk or limbs and provides more than half the effort. 0-Lonmmaphn-ydtxqo does ALL the effort. Patient does none of the effort to complete the activity. Or, the assistance of 2 or more helpers is required for the patient to complete the activity. If activity was not attempted, code reason: 7-Patient Refused. 9-Not Applicable-not attempted and the patient did not perform the activity before the current illness, exacerbation or injury. 10-Not Attempted due to Environmental Limitations-(lack of equipment, weather restraints, etc.). 88-Not Attempted due to Medical Conditions or Safety Concerns. Lying to Sitting/Side of Bed(Q: 3 Sit to Stand (QC): 3 Chair/Ubv-ed-Nsvim Xfer(QC): 3 Gait Training Distance: 15' x 2 Walk 10 feet (QC): 3 Gait Assistive Device: FWW initially retropulsive with PT correct Assessment Patient is up in recliner with chair alarm activated for patient safety. Patient requires much encouragement to participate with OOB activity. PT Fast [employer] Shift Supervisor Goals Fast [employer] Shift Supervisor Goals PT Skilled Nursing Goals Time Frame: Dec 09, 2022 Roll Left & Right (QC): 4 Sit to Lying (QC): 4 Lying-Sitting on Side/Bed(QC): 4 Sit to Stand (QC): 4 Chair/Jfn-kw-Cmhwy Xfer(QC): 4 Toilet Transfer (QC): 4 Walk 10 feet (QC): 4 Walk 50ft with 2 Turns (QC): 4 Walk 150 ft (QC): 4 PT Plan Treatment/Plan Treatment Plan: Continue Plan of Care Treatment Plan: Bed Mobility, Education, Functional Activity [place], Functional Strength, Gait, Safety, Therapeutic Exercise, Transfers Treatment Duration: Dec 09, 2022 Frequency: 6 times per week Estimated Hrs Per Day: .25 hour per day Time Time In: 801 Time Out: 812 DATE: Nov 27, 2022 Total Billed Treatment Time: 11 Total Billed Treatment 1 visit FA 11 min CLINT MAHONEY PT Nov 27, 2022 09:25
[2022-11-27] MEDS: LORATADINE (CLARITIN) 10 MG TAB PO SCH (09:35)
[2022-11-27] MEDS: DOCUSATE SODIUM 100 MG (COLACE) CAP PO SCH ×2 (09:35→21:08)
[2022-11-27] MEDS: SERTRALINE 50 MG (ZOLOFT) TABLET PO SCH (09:35)
[2022-11-27] MEDS: DIVALPROEX 250 MG DELAYED RELEASE (DEPAKOTE) TAB PO SCH ×2 (09:35→21:08)
[2022-11-27] MEDS: ASPIRIN 81 MG CHEW (CHILDREN'S ASA) PO SCH (09:35)
[2022-11-27] MEDS: SENNOSIDES 8.6 MG (SENOKOT) TAB PO SCH ×2 (09:35→21:08)
[2022-11-27] MEDS: APIXABAN 2.5 MG (ELIQUIS) TABLET PO SCH ×2 (09:37→21:08)
--- NOTE | 2022-11-27 10:17 | Occupational Ther Daily Note ---
OT Current Status-Daily Note Subjective UP in chair finishing breakfast Mental Status/Objective Patient Orientation: Person, Confused ADL-Treatment toileting and grooming standing sinkside w/ FWW Therapy Code Descriptions/Definitions Functional [place] Measure: 0=Not Assessed/NA 4=Minimal Assistance 1=Total Assistance 5=Supervision or Setup 2=Maximal Assistance 6=Modified [place] 3=Moderate Assistance 7=Complete IndependenceSCALE: Activities may be completed with or without assistive devices. 5-Opbxzjweec-jkjlvbe completes the activity by him/herself with no assistance from a helper. 5-Set-up or Clean-up Assistance-helper sets up or cleans up; patient completes activity. [place] assists only prior to or following the activity. 4-Supervision or Touching Assistance-helper provides verbal cues and/or touching/steadying and/or contact guard assistance as patient completes activity. Assistance may be provided throughout the activity or intermittently. 3-Partial/Moderate Assistance-helper does LESS THAN HALF the effort. [place] lifts, holds or supports trunk or limbs, but provides less than half the effort. 2-Substantial/Maximal Assistance-helper does MORE THAN HALF the effort. [place] lifts or holds trunk or limbs and provides more than half the effort. 9-Lyelcvldf-zpjppr does ALL the effort. Patient does none of the effort to complete the activity. Or, the assistance of 2 or more helpers is required for the patient to complete the activity. If activity was not attempted, code reason: 7-Patient Refused. 9-Not Applicable-not attempted and the patient did not perform the activity before the current illness, exacerbation or injury. 10-Not Attempted due to Environmental Limitations-(lack of equipment, weather restraints, etc.). 88-Not Attempted due to Medical Conditions or Safety Concerns. Eating (QC): 6 Oral Hygiene (QC): 4 Shower/Bathe Self (QC): 7 (offered and declined) Upper Body Dressing (QC): 7 (hospital gown, declined change of garment) Lower Body Dressing (QC): 3 (Requires assistance with fastners and sequence to don, patient does pull breif up/down when asked) On/Off Footwear: 3 (RUE demonstrates greater flexibility, large bruising on posterior LLE requires moderate assistance w/ sock over toes. ) Toileting Hygiene (QC): 2 Toilet Transfer (QC): 3 Education OT Patient Education: Modified ADL techniques, Progress toward Goal/Update tx plan, Purpose of tx/functional activities, Reviewed precautions, Rehab process, Safety issues, Transfer techniques, Use of adapted equipment Teaching Recipient: Patient Teaching Methods: Demonstration, Discussion Response to Teaching: Verbalize Understanding, Return Demonstration, Reinforcement Needed OT facilitates use of RUE for ADLS OT Halfway Goals Halfway Goals Time Frame: Dec 02, 2022 Eating (QC): 6 Oral Hygiene (QC): 5 Toileting Hygiene (QC): 5 Shower/Bathe Self (QC): 5 Upper Body Dressing (QC): 5 Lower Body Dressing (QC): 5 On/Off Footwear (QC): 6 Additional Goals: 1-Demonstrate ADL Tasks, 2-Verbalize Understanding, 3- ImproveStrength/[place] 1=Demonstrate adherence to instructed precautions during ADL tasks. 2=Patient will verbalize/demonstrate understanding of assistive devices/modifications for ADL. 3=Patient will improve strength/tolerance for activity to enable patient to perform ADL's. OT Education/Plan Problem List/Assessment Assessment: Decreased Activ Tolerance, Decreased Safety Aware, Decreased UE Strength, Impaired Cognition, Impaired Coordination, Impaired Funct Balance, Impaired Self-Care Skills, Restricted Funct UE ROM Noted improvement in use of RUE w/ functional task and reduce c/o pain to shoulder Discharge Recommendations Plan/Recommendations: Continue POC Therapy Discharge Recommendati: Post Acute OT Treatment Plan/Plan of Care Treatment,Training & Education: Yes Patient would benefit from OT for education, treatment and training to promote independence in ADL's, mobility, safety and/or upper extremity function for ADL's. Plan of Care: ADL Retraining, Cognitive Retraining, Concurrent Therapy, Functional Mobility, Group Exercise/Act as Ind, UE Funct Exercise/Act Treatment Duration: Dec 02, 2022 Frequency: 3 times per week (3-5 times / week) Agreement: Yes Rehab Potential: Good Time Start Time: 08:37 Stop Time: 08:57 DATE: Nov 27, 2022 Total Time Billed (hr/min): 20 Billed Treatment Time 1 visit ADL 1 20 min VIPUL CUMMINGS OT Nov 27, 2022 10:17
[2022-11-27] MEDS ORDERED: IRON1TAB86 PO (10:18)
[2022-11-27] MEDS ORDERED: TR1C15 TP (10:18)
[2022-11-27] MEDS ORDERED: ALBU8.5H6 PO (10:18)
[2022-11-27] MEDS ORDERED: [UNRECOGNIZED DRUG - CODE] OD (10:18)
[2022-11-27] MEDS ORDERED: CETI10TA17 PO (10:18)
[2022-11-27] MEDS ORDERED: DEXT30DR6 OP (10:18)
[2022-11-27] MEDS ORDERED: ASPI-999 PO (10:18)
[2022-11-27] MEDS ORDERED: ACET325T49 PO (10:18)
[2022-11-27] MEDS ORDERED: BUDE10.2 IH (10:18)
[2022-11-27] MEDS ORDERED: MINE50OI TP (10:18)
[2022-11-27] MEDS ORDERED: DIVA250T2 PO (10:18)
[2022-11-27] MEDS ORDERED: OLME20TA24 PO (10:18)
[2022-11-27] MEDS ORDERED: MONT-40 PO (10:18)
[2022-11-27] MEDS ORDERED: APIX2.5T PO (10:18)
[2022-11-27] MEDS ORDERED: ATOR20TA66 PO (10:18)
[2022-11-27] MEDS ORDERED: SERT-413 PO (10:18)
[2022-11-27] MEDS ORDERED: ASCO-262 PO (10:18)
--- NOTE | 2022-11-27 10:20 | Discharge Inst-Skilled Nursing ---
Discharge Inst-Skilled NF Reconcile Patient Problems Problems Reviewed?: Yes Patient Instructions Patient Problems: Debility Goal: [employer] Consult/Follow Up/Orders Follow Up Appt.: PCP Dr Segura/Sho Beckham Skilled NF Admit to: [facility] ([facility]) I certify that SNF services are required to be given on an inpatient basis because of the above named patient's need for fci care on a continuing basis for the conditions(s) for which he/she was receiving inpatient hospital services prior to his/her transfer to the [facility]. Group Home Facility Order: Nursing Services, Manager Account Management-Evaluate & Treat, Physical Therapy-Evaluate & Treat Oxygen Delivery Method: Room Air Discharge Diet: No Restrictions Daily Activity as Tolerated: Yes Resuscitation Status: Full Code New & Resume Previous Orders New Medications: Acetaminophen (Acetaminophen) 325 Mg Tablet 650 MG PO Q4H PRN for TEMPERATURE, #30 TAB Changed Medications: Olmesartan Medoxomil (Olmesartan Medoxomil) 20 Mg Tablet 20 MG PO DAILY, #30 TAB (Medication details modified) hold for SBP<130 Continued Medications: Albuterol Sulfate (Ventolin Hfa) 90 Mcg Hfa.aer.ad 2 PUFF PO TID, #1 EA (This prescription has been renewed) 1 PUFF = 90 MCG Apixaban (Eliquis) 2.5 Mg Tablet 2.5 MG PO BID, #60 TAB (This prescription has been renewed) Ascorbate Calcium (Vitamin C) 500 Mg Tablet 500 MG PO DAILY, #30 TAB (This prescription has been renewed) Aspirin (Aspirin) 81 Mg Tab.chew 81 MG PO DAILY, #30 TAB (This prescription has been renewed) Atorvastatin Calcium (Atorvastatin Calcium) 20 Mg Tablet 20 MG PO 1999, #30 TAB (This prescription has been renewed) Budesonide/Formoterol Fumarate (Symbicort 160-4.5 Mcg Inhaler) 160 Mcg-4.5 Mcg/Actuation Hfa.aer.ad 2 PUFF IH BID, #1 EA (This prescription has been renewed) Cetirizine HCl (Cetirizine HCl) 10 Mg Tablet 10 MG PO DAILY, #30 TAB (This prescription has been renewed) Dextran 70/Hypromellose (Artificials Tears Drops) 30 Ml Drops 1 DROP OP DAILY PRN for DRY EYES, #1 EA (This prescription has been renewed) Divalproex Sodium (Depakote) 250 Mg Tablet.dr 250 MG PO BID, #60 TAB (This prescription has been renewed) Mineral Oil/Hydrophil Petrolat (Aquaphor Healing Ointment) 50 Gm Oint...g. 1 APPLIC TP BID, #1 EA (This prescription has been renewed) Mineral Oil/Petrolatum,White (Lubricant Pm Eye Ointment) 42.5 %-57.3 % Oint...g. 1 APPLIC OD HS PRN for EYE REDNESS, #1 EA (This prescription has been renewed) Montelukast Sodium (Montelukast Sodium) 10 Mg Tablet 10 MG PO DAILY, #30 TAB (This prescription has been renewed) Mv, Min #36/Iron,Carbonyl/FA (Geritol Complete Tablet) 16 Mg Iron-0.38 Mg Tablet 1 EACH PO DAILY, #30 TAB (This prescription has been renewed) Sertraline HCl (Sertraline HCl) 50 Mg Tablet 75 MG PO DAILY, #45 TAB (This prescription has been renewed) TAKES 1 AND 1/2 OF (50MG) TAB TO EQUAL 75MG Triamcinolone Acet (Triamcinolone Acetonide 0.1% Cream) 0.1 % Cr 1 APPLIC TP BID, #1 EA (This prescription has been renewed) START DATE 11-14-2022 Martita Segura Nov 27, 2022 10:19 MARTITA SEGURA DO Nov 27, 2022 10:20
--- NOTE | 2022-11-27 10:21 | Discharge Summary ---
Diagnosis/Chief Complaint Date of Admission Nov 19, 2022 at 16:29 Date of Discharge Discharge Date: Nov 27, 2022 Discharge Summary Discharge Physical Examination Allergies: Coded Allergies: No Known Drug Allergies (Unverified , 11/19/22) Vitals & I&Os Vital Signs Date Time Temp Pulse Resp B/P (MAP) Pulse Ox O2 Delivery O2 Flow Rate FiO2 11/28/22 03:38 37.0 75 16 117/64 (81) 96 Room Air 11/27/22 22:19 0.00 Hospital Course Labs (last 24 hrs) Laboratory Tests 11/19/22 14:20: White Blood Count 16.8H, Red Blood Count 3.76L, Hemoglobin 11.4L, Hematocrit 35L , Mean Corpuscular Volume 92, Mean Corpuscular Hemoglobin 30, Mean Corpuscular Hemoglobin Concent 33, Red Cell Distribution Width 13.3, Platelet Count 263, Mean Platelet Volume 12.1, Immature Granulocyte % (Auto) 1, Neutrophils (%) (Auto) 83H, Lymphocytes (%) (Auto) 7L, Monocytes (%) (Auto) 8, Eosinophils (%) (Auto) 1, Basophils (%) (Auto) 0, Neutrophils # (Auto) 13.9H, Lymphocytes # (Auto) 1.2, Monocytes # (Auto) 1.3H, Eosinophils # (Auto) 0.2, Basophils # (Auto) 0.1, Immature Granulocyte # (Auto) 0.1, Neutrophils % (Manual) 87, Lymphocytes % (Manual) 6, Monocytes % (Manual) 6, Eosinophils % (Manual) 1, Basophils % (Manual) 0, Band Neutrophils 0, Elliptocytes SLIGHT, Sodium Level 139, Potassium Level 4.2, Chloride Level 108H, Carbon Dioxide Level 19L, Anion Gap 12, Blood Urea Nitrogen 29H, Creatinine 1.09, Estimat Glomerular Filtration Rate 68, BUN/Creatinine Ratio 27, Glucose Level 109H, Calcium Level 9.1 11/19/22 14:36: Urine Color YELLOW, Urine Clarity CLEAR, Urine pH 6.0, Urine Specific [place] 1.020, Urine Protein NEGATIVE, Urine Glucose (UA) NEGATIVE, Urine Ketones TRACEH , Urine Nitrite NEGATIVE, Urine Bilirubin NEGATIVE, Urine Urobilinogen 4.0, Urine Leukocyte Esterase NEGATIVE, Urine RBC (Auto) 3+H, Urine RBC >100H, Urine WBC 0-2, Urine Squamous Epithelial Cells RARE, Urine Crystals NONE, Urine Bacteria NEGATIVE, Urine Casts NONE, Urine Mucus NEGATIVE, Urine Culture Indicated NO 11/19/22 15:46: Influenza Type A (RT-PCR) Not Detected, Influenza Type B (RT-PCR) Not Detected, SARS-CoV-2 RNA (RT-PCR) Not Detected 11/20/22 05:20: White Blood Count 13.2H, Red Blood Count 3.40L, Hemoglobin 10.1L, Hematocrit 32L , Mean Corpuscular Volume 93, Mean Corpuscular Hemoglobin 30, Mean Corpuscular Hemoglobin Concent 32, Red Cell Distribution Width 13.3, Platelet Count 233, Mean Platelet Volume 13.1H, Immature Granulocyte % (Auto) 1, Neutrophils (%) (Auto) 79H, Lymphocytes (%) (Auto) 9L, Monocytes (%) (Auto) 8, Eosinophils (%) (Auto) 3, Basophils (%) (Auto) 0, Neutrophils # (Auto) 10.4H, Lymphocytes # (Auto) 1.2, Monocytes # (Auto) 1.1H, Eosinophils # (Auto) 0.4H, Basophils # (Auto) 0.0, Immature Granulocyte # (Auto) 0.1, Sodium Level 141, Potassium Level 4.0, Chloride Level 110H, Carbon Dioxide Level 23, Anion Gap 8, Blood Urea Nitrogen 26H, Creatinine 0.85, Estimat Glomerular Filtration Rate 87, BUN/Creatinine Ratio 31, Glucose Level 98, Calcium Level 8.9, Percent Immature Platelet Fraction 4.0, Corrected Calcium 9.8, Total Bilirubin 1.3H, Aspartate Amino Transf (AST/SGOT) 17, Alanine Aminotransferase (ALT/SGPT) 31, Alkaline Phosphatase 59, Total Protein 5.9L, Albumin 2.9L, Valproic Acid (Depakene) Level 24.6L 11/21/22 05:52: White Blood Count 14.3H, Red Blood Count 3.42L, Hemoglobin 10.2L, Hematocrit 32L , Mean Corpuscular Volume 93, Mean Corpuscular Hemoglobin 30, Mean Corpuscular Hemoglobin Concent 32, Red Cell Distribution Width 13.3, Platelet Count 255, Mean Platelet Volume 11.8, Immature Granulocyte % (Auto) 1, Neutrophils (%) (Auto) 81H, Lymphocytes (%) (Auto) 7L, Monocytes (%) (Auto) 8, Eosinophils (%) (Auto) 3, Basophils (%) (Auto) 0, Neutrophils # (Auto) 11.6H, Lymphocytes # (Auto) 1.1, Monocytes # (Auto) 1.1H, Eosinophils # (Auto) 0.4H, Basophils # (Auto) 0.1, Immature Granulocyte # (Auto) 0.1, Sodium Level 140, Potassium Level 3.9, Chloride Level 111H, Carbon Dioxide Level 21, Anion Gap 8, Blood Urea Nitrogen 23H, Creatinine 0.76, Estimat Glomerular Filtration Rate 90, BUN/Creatinine Ratio 30, Glucose Level 107H, Calcium Level 8.9, Corrected Calcium 9.7, Total Bilirubin 1.2H, Aspartate Amino Transf (AST/SGOT) 22, Alanine Aminotransferase (ALT/SGPT) 37, Alkaline Phosphatase 64, Total Protein 6.1L, Albumin 3.0L 11/22/22 05:37: White Blood Count 15.7H, Red Blood Count 3.39L, Hemoglobin 10.0L, Hematocrit 31L , Mean Corpuscular Volume 92, Mean Corpuscular Hemoglobin 30, Mean Corpuscular Hemoglobin Concent 32, Red Cell Distribution Width 13.2, Platelet Count 284, Mean Platelet Volume 11.8, Immature Granulocyte % (Auto) 0, Neutrophils (%) (Auto) 82H, Lymphocytes (%) (Auto) 6L, Monocytes (%) (Auto) 8, Eosinophils (%) (Auto) 3, Basophils (%) (Auto) 0, Neutrophils # (Auto) 12.9H, Lymphocytes # (Auto) 0.9L, Monocytes # (Auto) 1.3H, Eosinophils # (Auto) 0.5H, Basophils # (Auto) 0.0, Immature Granulocyte # (Auto) 0.1, Sodium Level 139, Potassium Level 3.9, Chloride Level 109H, Carbon Dioxide Level 20L, Anion Gap 10, Blood Urea Nitrogen 23H, Creatinine 0.76, Estimat Glomerular Filtration Rate 90, BUN/Creatinine Ratio 30, Glucose Level 111H, Calcium Level 9.1, Corrected Calcium 10.0, Total Bilirubin 1.0, Aspartate Amino Transf (AST/SGOT) 26, Alanine Aminotransferase (ALT/SGPT) 38, Alkaline Phosphatase 69, Total Protein 6.0L, Albumin 2.9L 11/23/22 05:05: White Blood Count 16.1H, Red Blood Count 3.37L, Hemoglobin 10.0L, Hematocrit 31L , Mean Corpuscular Volume 91, Mean Corpuscular Hemoglobin 30, Mean Corpuscular Hemoglobin Concent 33, Red Cell Distribution Width 13.2, Platelet Count 311, Mean Platelet Volume 11.9, Immature Granulocyte % (Auto) 1, Neutrophils (%) (Auto) 82H, Lymphocytes (%) (Auto) 7L, Monocytes (%) (Auto) 9, Eosinophils (%) (Auto) 2, Basophils (%) (Auto) 0, Neutrophils # (Auto) 13.1H, Lymphocytes # (Auto) 1.1, Monocytes # (Auto) 1.4H, Eosinophils # (Auto) 0.3, Basophils # (Auto) 0.1, Immature Granulocyte # (Auto) 0.1, Sodium Level 138, Potassium Level 4.1, Chloride Level 109H, Carbon Dioxide Level 19L, Anion Gap 10, Blood Urea Nitrogen 19H, Creatinine 0.78, Estimat Glomerular Filtration Rate 89, BUN/Creatinine Ratio 24, Glucose Level 107H, Calcium Level 9.0, Corrected Calcium 9.9, Total Bilirubin 0.8, Aspartate Amino Transf (AST/SGOT) 26, Alanine Aminotransferase (ALT/SGPT) 49, Alkaline Phosphatase 67, Total Protein 6.1L, Albumin 2.9L 11/24/22 13:41: White Blood Count 13.8H, Red Blood Count 3.40L, Hemoglobin 10.2L, Hematocrit 31L , Mean Corpuscular Volume 92, Mean Corpuscular Hemoglobin 30, Mean Corpuscular Hemoglobin Concent 33, Red Cell Distribution Width 13.2, Platelet Count 321, Mean Platelet Volume 11.3, Immature Granulocyte % (Auto) 1, Neutrophils (%) (Auto) 81H, Lymphocytes (%) (Auto) 6L, Monocytes (%) (Auto) 10, Eosinophils (%) (Auto) 2, Basophils (%) (Auto) 0, Neutrophils # (Auto) 11.2H, Lymphocytes # (Auto) 0.8L, Monocytes # (Auto) 1.3H, Eosinophils # (Auto) 0.3, Basophils # (Auto) 0.0, Immature Granulocyte # (Auto) 0.1, Sodium Level 139, Potassium Level 3.9, Chloride Level 109H, Carbon Dioxide Level 22, Anion Gap 8, Blood Urea Nitrogen 20H, Creatinine 0.73, Estimat Glomerular Filtration Rate 91, BUN/Creatinine Ratio 27, Glucose Level 137H, Calcium Level 8.9, Corrected Calcium 9.9, Total Bilirubin 0.6, Aspartate Amino Transf (AST/SGOT) 24, Alanine Aminotransferase (ALT/SGPT) 49, Alkaline Phosphatase 68, Total Protein 6.0L, Albumin 2.8L 11/25/22 04:40: White Blood Count 14.5H, Red Blood Count 3.37L, Hemoglobin 10.1L, Hematocrit 31L , Mean Corpuscular Volume 91, Mean Corpuscular Hemoglobin 30, Mean Corpuscular H emoglobin Concent 33, Red Cell Distribution Width 13.2, Platelet Count 272, Mean Platelet Volume 11.4, Immature Granulocyte % (Auto) 1, Neutrophils (%) (Auto) 78H, Lymphocytes (%) (Auto) 9L, Monocytes (%) (Auto) 9, Eosinophils (%) (Auto) 3, Basophils (%) (Auto) 0, Neutrophils # (Auto) 11.3H, Lymphocytes # (Auto) 1.3, Monocytes # (Auto) 1.3H, Eosinophils # (Auto) 0.4H, Basophils # (Auto) 0.1, Immature Granulocyte # (Auto) 0.1, Percent Immature Platelet Fraction 3.0, Sodium Level 139, Potassium Level 4.0, Chloride Level 109H, Carbon Dioxide Level 20L, Anion Gap 10, Blood Urea Nitrogen 20H, Creatinine 0.70, Estimat Glomerular Filtration Rate 92, BUN/Creatinine Ratio 29, Glucose Level 103, Calcium Level 8.7, Corrected Calcium 9.7, Total Bilirubin 0.6, Aspartate Amino Transf (AST/SGOT) 23, Alanine Aminotransferase (ALT/SGPT) 50, Alkaline Phosphatase 67, Total Protein 5.7L, Albumin 2.7L 11/26/22 05:22: White Blood Count 16.7H, Red Blood Count 3.50L, Hemoglobin 10.1L, Hematocrit 32L , Mean Corpuscular Volume 92, Mean Corpuscular Hemoglobin 29, Mean Corpuscular Hemoglobin Concent 32, Red Cell Distribution Width 13.1, Platelet Count 350, Mean Platelet Volume 12.2, Immature Granulocyte % (Auto) 1, Neutrophils (%) (Auto) 81H, Lymphocytes (%) (Auto) 7L, Monocytes (%) (Auto) 9, Eosinophils (%) (Auto) 2, Basophils (%) (Auto) 0, Neutrophils # (Auto) 13.4H, Lymphocytes # (Auto) 1.2, Monocytes # (Auto) 1.5H, Eosinophils # (Auto) 0.4H, Basophils # (Auto) 0.0, Immature Granulocyte # (Auto) 0.1, Percent Immature Platelet Fraction 2.6, Sodium Level 140, Potassium Level 3.9, Chloride Level 110H, Carbon Dioxide Level 20L, Anion Gap 10, Blood Urea Nitrogen 24H, Creatinine 0.79, Estimat Glomerular Filtration Rate 89, BUN/Creatinine Ratio 30, Glucose Level 106H, Calcium Level 8.9, Corrected Calcium 9.9, Total Bilirubin 0.6, Aspartate Amino Transf (AST/SGOT) 31, Alanine Aminotransferase (ALT/SGPT) 59H, Alkaline Phosphatase 98, Total Protein 6.1L, Albumin 2.8L, Neutrophils % (Manual) 90, Lymphocytes % (Manual) 5, Monocytes % (Manual) 4, Eosinophils % (Manual) 1, Elliptocytes SLIGHT, Absolute Reticulocyte Count 55, Percent Reticulocyte Count 1.58 11/26/22 12:25: Influenza Type A (RT-PCR) Not Detected, Influenza Type B (RT-PCR) Not Detected, SARS-CoV-2 RNA (RT-PCR) Not Detected 11/27/22 05:23: White Blood Count 17.6H, Red Blood Count 3.29L, Hemoglobin 9.6L, Hematocrit 30L, Mean Corpuscular Volume 92, Mean Corpuscular Hemoglobin 29, Mean Corpuscular Hemoglobin Concent 32, Red Cell Distribution Width 13.1, Platelet Count 374, Mean Platelet Volume 11.2, Immature Granulocyte % (Auto) 1, Neutrophils (%) (Auto) 81H, Lymphocytes (%) (Auto) 8L, Monocytes (%) (Auto) 8, Eosinophils (%) (Auto) 1, Basophils (%) (Auto) 0, Neutrophils # (Auto) 14.3H, Lymphocytes # (Auto) 1.4, Monocytes # (Auto) 1.5H, Eosinophils # (Auto) 0.2, Basophils # (Auto) 0.0, Immature Granulocyte # (Auto) 0.1, Sodium Level 139, Potassium Level 3.8, Chloride Level 110H, Carbon Dioxide Level 20L, Anion Gap 9, Blood Urea Nitrogen 22H, Creatinine 0.80, Estimat Glomerular Filtration Rate 88, BUN/Creatinine Ratio 28, Glucose Level 103, Calcium Level 8.7, Corrected Calcium 9.7, Total Bilirubin 0.5, Aspartate Amino Transf (AST/SGOT) 25, Alanine Aminotransferase (ALT/SGPT) 53, Alkaline Phosphatase 92, Total Protein 6.1L, Albumin 2.7L 11/28/22 05:04: Microbiology 11/26/22 Blood Culture - Preliminary, Resulted No growth Pending Labs Microbiology Date/Time Source Procedure Growth Status 11/26/22 13:00 Peripheral Lt Ac Blood Culture - Preliminary No growth Resulted 11/26/22 13:00 Peripheral Lt Hand Blood Culture - Preliminary No growth Resulted Laboratory Tests 11/19/22 14:20: White Blood Count 16.8, Red Blood Count 3.76, Hemoglobin 11.4, Hematocrit 35, Mean Corpuscular Volume 92, Mean Corpuscular Hemoglobin 30, Mean Corpuscular Hemoglobin Concent 33, Red Cell Distribution Width 13.3, Platelet Count 263, Mean Platelet Volume 12.1, Immature Granulocyte % (Auto) 1, Neutrophils (%) (Auto) 83, Lymphocytes (%) (Auto) 7, Monocytes (%) (Auto) 8, Eosinophils (%) (Auto) 1, Basophils (%) (Auto) 0, Neutrophils # (Auto) 13.9, Lymphocytes # (Auto) 1.2, Monocytes # (Auto) 1.3, Eosinophils # (Auto) 0.2, Basophils # (Auto) 0.1, Immature Granulocyte # (Auto) 0.1, Neutrophils % (Manual) 87, Lymphocytes % (Manual) 6, Monocytes % (Manual) 6, Eosinophils % (Manual) 1, Basophils % (Manual) 0, Band Neutrophils 0, Elliptocytes SLIGHT, Sodium Level 139, Potassium Level 4.2, Chloride Level 108, Carbon Dioxide Level 19, Anion Gap 12, Blood Urea Nitrogen 29, Creatinine 1.09, Estimat Glomerular Filtration Rate 68, BUN/Creatinine Ratio 27, Glucose Level 109, Calcium Level 9.1 11/19/22 14:36: Urine Color YELLOW, Urine Clarity CLEAR, Urine pH 6.0, Urine Specific [place] 1.020, Urine Protein NEGATIVE, Urine Glucose (UA) NEGATIVE, Urine Ketones TRACE, Urine Nitrite NEGATIVE, Urine Bilirubin NEGATIVE, Urine Urobilinogen 4.0, Urine Leukocyte Esterase NEGATIVE, Urine RBC (Auto) 3+, Urine RBC >100, Urine WBC 0-2, Urine Squamous Epithelial Cells RARE, Urine Crystals NONE, Urine Bacteria NEGATIVE, Urine Casts NONE, Urine Mucus NEGATIVE, Urine Culture Indicated NO 11/19/22 15:46: Influenza Type A (RT-PCR) Not Detected, Influenza Type B (RT-PCR) Not Detected, SARS-CoV-2 RNA (RT-PCR) Not Detected 11/20/22 05:20: White Blood Count 13.2, Red Blood Count 3.40, Hemoglobin 10.1, Hematocrit 32, Mean Corpuscular Volume 93, Mean Corpuscular Hemoglobin 30, Mean Corpuscular Hemoglobin Concent 32, Red Cell Distribution Width 13.3, Platelet Count 233, Mean Platelet Volume 13.1, Immature Granulocyte % (Auto) 1, Neutrophils (%) (Auto) 79, Lymphocytes (%) (Auto) 9, Monocytes (%) (Auto) 8, Eosinophils (%) (Auto) 3, Basophils (%) (Auto) 0, Neutrophils # (Auto) 10.4, Lymphocytes # (Auto) 1.2, Monocytes # (Auto) 1.1, Eosinophils # (Auto) 0.4, Basophils # (Auto) 0.0, Immature Granulocyte # (Auto) 0.1, Sodium Level 141, Potassium Level 4.0, Chloride Level 110, Carbon Dioxide Level 23, Anion Gap 8, Blood Urea Nitrogen 26, Creatinine 0.85, Estimat Glomerular Filtration Rate 87, BUN/Creatinine Ratio 31, Glucose Level 98, Calcium Level 8.9, Percent Immature Platelet Fraction 4.0, Corrected Calcium 9.8, Total Bilirubin 1.3, Aspartate Amino Transf (AST/SGOT) 17, Alanine Aminotransferase (ALT/SGPT) 31, Alkaline Phosphatase 59, Total Protein 5.9, Albumin 2.9, Valproic Acid (Depakene) Level 24.6 11/21/22 05:52: White Blood Count 14.3, Red Blood Count 3.42, Hemoglobin 10.2, Hematocrit 32, Mean Corpuscular Volume 93, Mean Corpuscular Hemoglobin 30, Mean Corpuscular Hemoglobin Concent 32, Red Cell Distribution Width 13.3, Platelet Count 255, Mean Platelet Volume 11.8, Immature Granulocyte % (Auto) 1, Neutrophils (%) (Auto) 81, Lymphocytes (%) (Auto) 7, Monocytes (%) (Auto) 8, Eosinophils (%) (Auto) 3, Basophils (%) (Auto) 0, Neutrophils # (Auto) 11.6, Lymphocytes # (Auto) 1.1, Monocytes # (Auto) 1.1, Eosinophils # (Auto) 0.4, Basophils # (Auto) 0.1, Immature Granulocyte # (Auto) 0.1, Sodium Level 140, Potassium Level 3.9, Chloride Level 111, Carbon Dioxide Level 21, Anion Gap 8, Blood Urea Nitrogen 23, Creatinine 0.76, Estimat Glomerular Filtration Rate 90, BUN/Creatinine Ratio 30, Glucose Level 107, Calcium Level 8.9, Corrected Calcium 9.7, Total Bilirubin 1.2, Aspartate Amino Transf (AST/SGOT) 22, Alanine Aminotransferase (ALT/SGPT) 37, Alkaline Phosphatase 64, Total Protein 6.1, Albumin 3.0 11/22/22 05:37: White Blood Count 15.7, Red Blood Count 3.39, Hemoglobin 10.0, Hematocrit 31, Mean Corpuscular Volume 92, Mean Corpuscular Hemoglobin 30, Mean Corpuscular Hemoglobin Concent 32, Red Cell Distribution Width 13.2, Platelet Count 284, Mean Platelet Volume 11.8, Immature Granulocyte % (Auto) 0, Neutrophils (%) (Auto) 82, Lymphocytes (%) (Auto) 6, Monocytes (%) (Auto) 8, Eosinophils (%) (Auto) 3, Basophils (%) (Auto) 0, Neutrophils # (Auto) 12.9, Lymphocytes # (Auto) 0.9, Monocytes # (Auto) 1.3, Eosinophils # (Auto) 0.5, Basophils # (Auto) 0.0, Immature Granulocyte # (Auto) 0.1, Sodium Level 139, Potassium Level 3.9, Chloride Level 109, Carbon Dioxide Level 20, Anion Gap 10, Blood Urea Nitrogen 23, Creatinine 0.76, Estimat Glomerular Filtration Rate 90, BUN/Creatinine Ratio 30, Glucose Level 111, Calcium Level 9.1, Corrected Calcium 10.0, Total Bilirubin 1.0, Aspartate Amino Transf (AST/SGOT) 26, Alanine Aminotransferase (ALT/SGPT) 38, Alkaline Phosphatase 69, Total Protein 6.0, Albumin 2.9 11/23/22 05:05: White Blood Count 16.1, Red Blood Count 3.37, Hemoglobin 10.0, Hematocrit 31, Mean Corpuscular Volume 91, Mean Corpuscular Hemoglobin 30, Mean Corpuscular Hemoglobin Concent 33, Red Cell Distribution Width 13.2, Platelet Count 311, Mean Platelet Volume 11.9, Immature Granulocyte % (Auto) 1, Neutrophils (%) (Auto) 82, Lymphocytes (%) (Auto) 7, Monocytes (%) (Auto) 9, Eosinophils (%) (Auto) 2, Basophils (%) (Auto) 0, Neutrophils # (Auto) 13.1, Lymphocytes # (Auto) 1.1, Monocytes # (Auto) 1.4, Eosinophils # (Auto) 0.3, Basophils # (Auto) 0.1, Immature Granulocyte # (Auto) 0.1, Sodium Level 138, Potassium Level 4.1, Chloride Level 109, Carbon Dioxide Level 19, Anion Gap 10, Blood Urea Nitrogen 19, Creatinine 0.78, Estimat Glomerular Filtration Rate 89, BUN/Creatinine Ratio 24, Glucose Level 107, Calcium Level 9.0, Corrected Calcium 9.9, Total Bilirubin 0.8, Aspartate Amino Transf (AST/SGOT) 26, Alanine Aminotransferase (ALT/SGPT) 49, Alkaline Phosphatase 67, Total Protein 6.1, Albumin 2.9 11/24/22 13:41: White Blood Count 13.8, Red Blood Count 3.40, Hemoglobin 10.2, Hematocrit 31, Mean Corpuscular Volume 92, Mean Corpuscular Hemoglobin 30, Mean Corpuscular Hemoglobin Concent 33, Red Cell Distribution Width 13.2, Platelet Count 321, Mean Platelet Volume 11.3, Immature Granulocyte % (Auto) 1, Neutrophils (%) (Auto) 81, Lymphocytes (%) (Auto) 6, Monocytes (%) (Auto) 10, Eosinophils (%) (Auto) 2, Basophils (%) (Auto) 0, Neutrophils # (Auto) 11.2, Lymphocytes # (Auto) 0.8, Monocytes # (Auto) 1.3, Eosinophils # (Auto) 0.3, Basophils # (Auto) 0.0, Immature Granulocyte # (Auto) 0.1, Sodium Level 139, Potassium Level 3.9, Chloride Level 109, Carbon Dioxide Level 22, Anion Gap 8, Blood Urea Nitrogen 20, Creatinine 0.73, Estimat Glomerular Filtration Rate 91, BUN/Creatinine Ratio 27, Glucose Level 137, Calcium Level 8.9, Corrected Calcium 9.9, Total Bilirubin 0.6, Aspartate Amino Transf (AST/SGOT) 24, Alanine Aminotransferase (ALT/SGPT) 49, Alkaline Phosphatase 68, Total Protein 6.0, Albumin 2.8 11/25/22 04:40: White Blood Count 14.5, Red Blood Count 3.37, Hemoglobin 10.1, Hematocrit 31, Mean Corpuscular Volume 91, Mean Corpuscular Hemoglobin 30, Mean Corpuscular Hemoglobin Concent 33, Red Cell Distribution Width 13.2, Platelet Count 272, Mean Platelet Volume 11.4, Immature Granulocyte % (Auto) 1, Neutrophils (%) (Auto) 78, Lymphocytes (%) (Auto) 9, Monocytes (%) (Auto) 9, Eosinophils (%) (Auto) 3, Basophils (%) (Auto) 0, Neutrophils # (Auto) 11.3, Lymphocytes # (Auto) 1.3, Monocytes # (Auto) 1.3, Eosinophils # (Auto) 0.4, Basophils # (Auto) 0.1, Immature Granulocyte # (Auto) 0.1, Percent Immature Platelet Fraction 3.0, Sodium Level 139, Potassium Level 4.0, Chloride Level 109, Carbon Dioxide Level 20, Anion Gap 10, Blood Urea Nitrogen 20, Creatinine 0.70, Estimat Glomerular Filtration Rate 92, BUN/Creatinine Ratio 29, Glucose Level 103, Calcium Level 8.7, Corrected Calcium 9.7, Total Bilirubin 0.6, Aspartate Amino Transf (AST/SGOT) 23, Alanine Aminotransferase (ALT/SGPT) 50, Alkaline Phosphatase 67, Total Protein 5.7, Albumin 2.7 11/26/22 05:22: White Blood Count 16.7, Red Blood Count 3.50, Hemoglobin 10.1, Hematocrit 32, Mean Corpuscular Volume 92, Mean Corpuscular Hemoglobin 29, Mean Corpuscular Hemoglobin Concent 32, Red Cell Distribution Width 13.1, Platelet Count 350, Mean Platelet Volume 12.2, Immature Granulocyte % (Auto) 1, Neutrophils (%) (Auto) 81, Lymphocytes (%) (Auto) 7, Monocytes (%) (Auto) 9, Eosinophils (%) (Auto) 2, Basophils (%) (Auto) 0, Neutrophils # (Auto) 13.4, Lymphocytes # (Auto) 1.2, Monocytes # (Auto) 1.5, Eosinophils # (Auto) 0.4, Basophils # (Auto) 0.0, Immature Granulocyte # (Auto) 0.1, Percent Immature Platelet Fraction 2.6, Sodium Level 140, Potassium Level 3.9, Chloride Level 110, Carbon Dioxide Level 20, Anion Gap 10, Blood Urea Nitrogen 24, Creatinine 0.79, Estimat Glomerular Filtration Rate 89, BUN/Creatinine Ratio 30, Glucose Level 106, Calcium Level 8.9, Corrected Calcium 9.9, Total Bilirubin 0.6, Aspartate Amino Transf (AST/SGOT) 31, Alanine Aminotransferase (ALT/SGPT) 59, Alkaline Phosphatase 98, Total Protein 6.1, Albumin 2.8, Neutrophils % (Manual) 90, Lymphocytes % (Man ual) 5, Monocytes % (Manual) 4, Eosinophils % (Manual) 1, Elliptocytes SLIGHT, Absolute Reticulocyte Count 55, Percent Reticulocyte Count 1.58 11/26/22 12:25: Influenza Type A (RT-PCR) Not Detected, Influenza Type B (RT-PCR) Not Detected, SARS-CoV-2 RNA (RT-PCR) Not Detected 11/27/22 05:23: White Blood Count 17.6, Red Blood Count 3.29, Hemoglobin 9.6, Hematocrit 30, Mean Corpuscular Volume 92, Mean Corpuscular Hemoglobin 29, Mean Corpuscular Hemoglobin Concent 32, Red Cell Distribution Width 13.1, Platelet Count 374, Mean Platelet Volume 11.2, Immature Granulocyte % (Auto) 1, Neutrophils (%) (Auto) 81, Lymphocytes (%) (Auto) 8, Monocytes (%) (Auto) 8, Eosinophils (%) (Auto) 1, Basophils (%) (Auto) 0, Neutrophils # (Auto) 14.3, Lymphocytes # (Auto) 1.4, Monocytes # (Auto) 1.5, Eosinophils # (Auto) 0.2, Basophils # (Auto) 0.0, Immature Granulocyte # (Auto) 0.1, Sodium Level 139, Potassium Level 3.8, Chloride Level 110, Carbon Dioxide Level 20, Anion Gap 9, Blood Urea Nitrogen 22, Creatinine 0.80, Estimat Glomerular Filtration Rate 88, BUN/Creatinine Ratio 28, Glucose Level 103, Calcium Level 8.7, Corrected Calcium 9.7, Total Bilirubin 0.5, Aspartate Amino Transf (AST/SGOT) 25, Alanine Aminotransferase (ALT/SGPT) 53, Alkaline Phosphatase 92, Total Protein 6.1, Albumin 2.7 11/28/22 05:04: White Blood Count [Pending], Red Blood Count [Pending], Hemoglobin [Pending], Hematocrit [Pending], Mean Corpuscular Volume [Pending], Mean Corpuscular Hemoglobin [Pending], Mean Corpuscular Hemoglobin Concent [Pending], Red Cell Distribution Width [Pending], Platelet Count [Pending], Mean Platelet Volume [Pending], Neutrophils (%) (Auto) [Pending], Lymphocytes (%) (Auto) [Pending], Monocytes (%) (Auto) [Pending], Eosinophils (%) (Auto) [Pending], Basophils (%) (Auto) [Pending], Neutrophils # (Auto) [Pending], Lymphocytes # (Auto) [Pending], Monocytes # (Auto) [Pending], Eosinophils # (Auto) [Pending], Basophils # (Auto) [Pending], Sodium Level [Pending], Potassium Level [Pending], Chloride Level [Pending], Carbon Dioxide Level [Pending], Anion Gap [Pending], Blood Urea Nitrogen [Pending], Creatinine [Pending], BUN/Creatinine Ratio [Pending], Glucose Level [Pending], Calcium Level [Pending], Corrected Calcium [Pending], Total Bilirubin [Pending], Aspartate Amino Transf (AST/SGOT) [Pending], Alanine Aminotransferase (ALT/SGPT) [Pending], Alkaline Phosphatase [Pending], Total Protein [Pending], Albumin [Pending] Discharge Home Medications: Active Scripts Active Acetaminophen 325 Mg Tablet 650 Mg PO Q4H PRN Geritol Complete Tablet (Mv, Min #36/Iron,Carbonyl/FA) 16 Mg Iron-0.38 Mg Tablet 1 Each PO DAILY Triamcinolone Acetonide 0.1% Cream (Triamcinolone Acet) 0.1 % Cr 1 Applic TP BID START DATE 11-14-2022 Eliquis (Apixaban) 2.5 Mg Tablet 2.5 Mg PO BID Depakote (Divalproex Sodium) 250 Mg Tablet.dr 250 Mg PO BID Cetirizine HCl 10 Mg Tablet 10 Mg PO DAILY Atorvastatin Calcium 20 Mg Tablet 20 Mg PO 2000 Aspirin 81 Mg Tab.chew 81 Mg PO DAILY Artificials Tears Drops (Dextran 70/Hypromellose) 30 Ml Drops 1 Drop OP DAILY PRN Ventolin Hfa (Albuterol Sulfate) 90 Mcg Hfa.aer.ad 2 Puff PO TID 1 PUFF = 90 MCG Vitamin C (Ascorbate Calcium) 500 Mg Tablet 500 Mg PO DAILY Symbicort 160-4.5 Mcg Inhaler (Budesonide/Formoterol Fumarate) 160 Mcg-4.5 Mcg/Actuation Hfa.aer.ad 2 Puff IH BID Sertraline HCl 50 Mg Tablet 75 Mg PO DAILY TAKES 1 AND 1/2 OF (50MG) TAB TO EQUAL 75MG Olmesartan Medoxomil 20 Mg Tablet 20 Mg PO DAILY hold for SBP<130 Montelukast Sodium 10 Mg Tablet 10 Mg PO DAILY Aquaphor Healing Ointment (Mineral Oil/Hydrophil Petrolat) 50 Gm Oint...g. 1 Applic TP BID Lubricant Pm Eye Ointment (Mineral Oil/Petrolatum,White) 42.5 %-57.3 % Oint...g. 1 Applic OD HS PRN Instructions to patient/family Please see electronic discharge instructions given to patient. Clinical Quality Measures DVT/VTE Risk/Contraindication: Contraindications-Pharm: Other *list below* Other: large hematoma and hematuria JO GARCIA DO Nov 27, 2022 10:21
[2022-11-27 11:42] VITALS: BP 99/66
[2022-11-27 15:47] VITALS: BP 101/55
--- NOTE | 2022-11-27 17:42 | Progress Note ---
Subjective Date Seen by a Provider: Nov 27, 2022 Time Seen by a Provider: 10:00 Subjective/Events-last exam Awaiting [facility] Insurance has not given approval No pain No cough No fever Review of Systems General: Fatigue, Malaise Objective Exam Last Set of Vital Signs Vital Signs Date Time Temp Pulse Resp B/P (MAP) Pulse Ox O2 Delivery O2 Flow Rate FiO2 11/27/22 15:47 37.4 83 18 101/55 (70) 97 Room Air 11/27/22 08:00 0.00 Capillary Refill : Less Than 3 Seconds I&O Intake and Output 11/27/22 00:00 Intake Total 1250 ml Balance 1250 ml Intake Oral 1250 ml # Voids 12 General: Alert, Cooperative, No Acute Distress Lungs: Clear to Auscultation Heart: Regular Rate Results Lab Laboratory Tests 11/27/22 05:23: White Blood Count 17.6H, Red Blood Count 3.29L, Hemoglobin 9.6L, Hematocrit 30L, Mean Corpuscular Volume 92, Mean Corpuscular Hemoglobin 29, Mean Corpuscular He moglobin Concent 32, Red Cell Distribution Width 13.1, Platelet Count 374, Mean Platelet Volume 11.2, Immature Granulocyte % (Auto) 1, Neutrophils (%) (Auto) 81H, Lymphocytes (%) (Auto) 8L, Monocytes (%) (Auto) 8, Eosinophils (%) (Auto) 1, Basophils (%) (Auto) 0, Neutrophils # (Auto) 14.3H, Lymphocytes # (Auto) 1.4, Monocytes # (Auto) 1.5H, Eosinophils # (Auto) 0.2, Basophils # (Auto) 0.0, Immature Granulocyte # (Auto) 0.1, Sodium Level 139, Potassium Level 3.8, Chloride Level 110H, Carbon Dioxide Level 20L, Anion Gap 9, Blood Urea Nitrogen 22H, Creatinine 0.80, Estimat Glomerular Filtration Rate 88, BUN/Creatinine Ratio 28, Glucose Level 103, Calcium Level 8.7, Corrected Calcium 9.7, Total Bilirubin 0.5, Aspartate Amino Transf (AST/SGOT) 25, Alanine Aminotransferase (ALT/SGPT) 53, Alkaline Phosphatase 92, Total Protein 6.1L, Albumin 2.7L Microbiology 11/26/22 Blood Culture - Preliminary, Resulted No growth Assessment/Plan Assessment/Plan Assess & Plan/Chief Complaint Assessment: Falls Hematomas soft tissue type AF Dementia Cough and fever now resolved Plan: Await [facility] Clinical Quality Measures Admission Status Admission Dx Assessment: Fall Large hematoma Dementia HTN AF Frail status Plan: PT OT May need skilled DVT/VTE Risk/Contraindication: Contraindications-Pharm: Other *list below* Other: large hematoma and hematuria JO GARCIA DO Nov 27, 2022 17:42
[2022-11-27] MEDS: NS IV 1000 ML 1,000 ML IV SCH (18:11)
[2022-11-27 19:00] VITALS: BP 110/56
[2022-11-27] MEDS: MONTELUKAST 10 MG (SINGULAIR) TAB PO SCH (21:08)
[2022-11-27 23:21] VITALS: BP 101/54
[2022-11-28 03:38] VITALS: BP 117/64
[2022-11-28 05:34] LABS: BASOPHILS # (AUTO) 0.1 10^3/uL (0.0-0.1); BASOPHILS % (AUTO) 0 % (0-10); EOSINOPHILS # (AUTO) 0.1 10^3/uL (0.0-0.3); EOSINOPHILS % (AUTO) 0 % (0-10); HEMATOCRIT 29 % (40-54); HEMOGLOBIN 9.3 g/dL (13.3-17.7); LYMPHOCYTES # (AUTO) 1.1 10^3/uL (1.0-4.0); LYMPHOCYTES % (AUTO) 6 % (12-44); MEAN CORPUSCULAR HEMOGLOBIN 30 pg (25-34); MEAN CORPUSCULAR HGB CONC 33 g/dL (32-36); MEAN CORPUSCULAR VOLUME 91 fL (80-99); MEAN PLATELET VOLUME 11.7 fL (9.0-12.2); MONOCYTES # (AUTO) 1.4 10^3/uL (0.0-1.0); MONOCYTES % (AUTO) 7 % (0-12); NEUTROPHILS # (AUTO) 16.5 10^3/uL (1.8-7.8); NEUTROPHILS % (AUTO) 86 % (42-75); PLATELET COUNT 392 10^3/uL (130-400); WHITE BLOOD COUNT 19.3 10^3/uL (4.3-11.0)
[2022-11-28 05:55] LABS: ALBUMIN 2.7 GM/DL (3.2-4.5)
[2022-11-28 05:56] LABS: POTASSIUM 3.9 MMOL/L (3.6-5.0)
[2022-11-28 05:57] LABS: CALCIUM 8.5 MG/DL (8.5-10.1)
[2022-11-28 05:58] LABS: TOTAL PROTEIN 6.1 GM/DL (6.4-8.2)
[2022-11-28 06:00] LABS: BILIRUBIN,TOTAL 0.6 MG/DL (0.1-1.0)
[2022-11-28 06:02] LABS: CREATININE SERUM 0.77 MG/DL (0.60-1.30)
[2022-11-28 07:28] VITALS: BP 120/64
[2022-11-28] MEDS: RT--FLUTICASONE/SALMETEROL 113-14 (AIRDUO RespiCLICK) IH SCH ×2 (07:37→22:16)
[2022-11-28] MEDS: DIVALPROEX 250 MG DELAYED RELEASE (DEPAKOTE) TAB PO SCH ×2 (08:56→20:04)
[2022-11-28] MEDS: ASPIRIN 81 MG CHEW (CHILDREN'S ASA) PO SCH (08:56)
[2022-11-28] MEDS: LORATADINE (CLARITIN) 10 MG TAB PO SCH (08:56)
[2022-11-28] MEDS: APIXABAN 2.5 MG (ELIQUIS) TABLET PO SCH ×2 (08:56→20:04)
[2022-11-28] MEDS: SERTRALINE 50 MG (ZOLOFT) TABLET PO SCH (08:56)
--- NOTE | 2022-11-28 08:56 | Diagnostic Imaging Report ---
INDICATION: Fever, elevated white blood cell count. Frontal chest obtained at 0602 a.m. compared to the 11/26/2022. Heart is borderline in size. Mediastinal silhouette is unremarkable. The lungs show no focal infiltrate. There is no pneumothorax or pleural fluid. IMPRESSION: No acute process in the chest. Dictated by: Dictated on workstation # [id number]
[2022-11-28] MEDS: DOCUSATE SODIUM 100 MG (COLACE) CAP PO SCH ×2 (08:57→19:51)
[2022-11-28] MEDS: NS IV 1000 ML 1,000 ML IV SCH (08:57)
[2022-11-28] MEDS: SENNOSIDES 8.6 MG (SENOKOT) TAB PO SCH ×2 (08:57→19:52)
--- NOTE | 2022-11-28 09:45 | Occupational Ther Daily Note ---
OT Current Status-Daily Note Subjective Up in chair finishing breakfast Pain Numeric Pain Scale: 0-No Pain Appearance Alert and attentive to conversation Mental Status/Objective Patient Orientation: Person, Confused remains confused with time, orientation and events ADL-Treatment Performs eating, face and oral grooming w set up, toileting/urination in bathroom Therapy Code Descriptions/Definitions Functional [place] Measure: 0=Not Assessed/NA 4=Minimal Assistance 1=Total Assistance 5=Supervision or Setup 2=Maximal Assistance 6=Modified [place] 3=Moderate Assistance 7=Complete IndependenceSCALE: Activities may be completed with or without assistive devices. 7-Kzlncryhbc-krtwphf completes the activity by him/herself with no assistance from a helper. 5-Set-up or Clean-up Assistance-helper sets up or cleans up; patient completes activity. [place] assists only prior to or following the activity. 4-Supervision or Touching Assistance-helper provides verbal cues and/or touching/steadying and/or contact guard assistance as patient completes activity. Assistance may be provided throughout the activity or intermittently. 3-Partial/Moderate Assistance-helper does LESS THAN HALF the effort. [place] lifts, holds or supports trunk or limbs, but provides less than half the effort. 2-Substantial/Maximal Assistance-helper does MORE THAN HALF the effort. [place] lifts or holds trunk or limbs and provides more than half the effort. 4-Oqvizbgyo-srwbsk does ALL the effort. Patient does none of the effort to co mplete the activity. Or, the assistance of 2 or more helpers is required for the patient to complete the activity. If activity was not attempted, code reason: 7-Patient Refused. 9-Not Applicable-not attempted and the patient did not perform the activity before the current illness, exacerbation or injury. 10-Not Attempted due to Environmental Limitations-(lack of equipment, weather restraints, etc.). 88-Not Attempted due to Medical Conditions or Safety Concerns. Eating (QC): 6 (spreads butter on biscuits, slices banana with buter knife) Oral Hygiene (QC): 4 (standing at sink w/ FWW no LOB in bathroom.) Shower/Bathe Self (QC): 7 (declines bathing, ) Upper Body Dressing (QC): 7 (declines changing gown, gown appears clean) Lower Body Dressing (QC): 4 (does not change, mangages pulling down and requires assistance pulling up posteriorly, 25% VC required for safety and sequences) On/Off Footwear: 3 (manages RLE socks and c/o pain while ROM for OT to start sock over toes and 25% VC for patient to continue. Pain resolves follow sock tasks) Toileting Hygiene (QC): 7 (sitting on commode for urination , no toilet hygiene perfomed, hand hygine performed at sink) Toilet Transfer (QC): 4 (VC for hand placement on GB and FWW) Education OT Patient Education: Correct positioning, Modified ADL techniques, Progress to hannah Goal/Update tx plan, Purpose of tx/functional activities, Reviewed precautions, Rehab process, Safety issues, Transfer techniques, Use of adapted equipment Teaching Recipient: Patient Teaching Methods: Demonstration, Discussion Response to Teaching: Verbalize Understanding, Return Demonstration, Reinforcement Needed OT Snf Goals Layout Mechanic Goals Time Frame: Dec 02, 2022 Eating (QC): 6 Oral Hygiene (QC): 5 Toileting Hygiene (QC): 5 Shower/Bathe Self (QC): 5 Upper Body Dressing (QC): 5 Lower Body Dressing (QC): 5 On/Off Footwear (QC): 6 Additional Goals: 1-Demonstrate ADL Tasks, 2-Verbalize Understanding, 3- ImproveStrength/[place] 1=Demonstrate adherence to instructed precautions during ADL tasks. 2=Patient will verbalize/demonstrate understanding of assistive devices/modifications for ADL. 3=Patient will improve strength/tolerance for activity to enable patient to perform ADL's. OT Education/Plan Problem List/Assessment Assessment: Decreased Activ Tolerance, Decreased Safety Aware, Decreased UE Strength, Impaired Bed Mobility, Impaired Cognition, Impaired Coordination, Impaired Funct Balance, Impaired Self-Care Skills, Restricted Funct UE ROM Noted improvement in use of RUE w/ functional task and reduce c/o pain to shoulder Discharge Recommendations Plan/Recommendations: Continue POC Therapy Discharge Recommendati: Post Acute OT Treatment Plan/Plan of Care Treatment,Training & Education: Yes Patient would benefit from OT for education, treatment and training to promote independence in ADL's, mobility, safety and/or upper extremity function for ADL's. Plan of Care: ADL Retraining, Cognitive Retraining, Concurrent Therapy, Functional Mobility, Group Exercise/Act as Ind, UE Funct Exercise/Act Comment Patient remains in recliner, call light in reach, all needs met at end of therapy session Treatment Duration: Dec 02, 2022 Frequency: 3 times per week (3-5 times / week) Agreement: Yes Rehab Potential: Good Time Start Time: 08:40 Stop Time: 09:10 DATE: Nov 28, 2022 Total Time Billed (hr/min): 30 Billed Treatment Time 1 visit ADL 2 30 minutes VIPUL CUMMINGS OT Nov 28, 2022 09:45
--- NOTE | 2022-11-28 09:48 | Physical Therapy Daily Note ---
PT Daily Note-Current Subjective Patient agrees to PT. Pain Section J - Health Conditions 1. Rarely or not at all 2. Occasionally 3. Frequently 4. Almost constantly 8. Unable to answer Pain Effect on Sleep: 1 Pain Interference with Therapy: 3 Pain Interference w/Day-to-Day: 3 Mental Status Attachments: IV Transfers SCALE: Activities may be completed with or without assistive devices. 8-Nchzikwwrf-figubcs completes the activity by him/herself with no assistance from a helper. 5-Set-up or Clean-up Assistance-helper sets up or cleans up; patient completes activity. [place] assists only prior to or following the activity. 4-Supervision or Touching Assistance-helper provides verbal cues and/or touc larisa/steadying and/or contact guard assistance as patient completes activity. Assistance may be provided throughout the activity or intermittently. 3-Partial/Moderate Assistance-helper does LESS THAN HALF the effort. [place] lifts, holds or supports trunk or limbs, but provides less than half the effort. 2-Substantial/Maximal Assistance-helper does MORE THAN HALF the effort. [place] lifts or holds trunk or limbs and provides more than half the effort. 2-Dnybmagmy-cuuxiv does ALL the effort. Patient does none of the effort to complete the activity. Or, the assistance of 2 or more helpers is required for the patient to complete the activity. If activity was not attempted, code reason: 7-Patient Refused. 9-Not Applicable-not attempted and the patient did not perform the activity before the current illness, exacerbation or injury. 10-Not Attempted due to Environmental Limitations-(lack of equipment, weather restraints, etc.). 88-Not Attempted due to Medical Conditions or Safety Concerns. Lying to Sitting/Side of Bed(Q: 2 Sit to Stand (QC): 2 Chair/Dhk-hp-[place] Xfer(QC): 2 Toilet Transfer (QC): 2 sit to stand x 3 sets due to incontinence BM Gait Training Distance: 10' x 2 Walk 10 feet (QC): 3 Gait Assistive Device: FWW impulsive to sit with turning to commode and recliner Assessment Patient incontinent BM requiring dependent assist to cleanse and change patient. Patient requires max assist with sit to stand transfers with noted flexed bilateral knee posture. VC's for body placement in FWW. Patient is up in recliner with chair alarm activated. PT Dev Manager Goals Dev Manager Goals PT [facility] Goals Time Frame: Dec 09, 2022 Roll Left & Right (QC): 4 Sit to Lying (QC): 4 Lying-Sitting on Side/Bed(QC): 4 Sit to Stand (QC): 4 Chair/Zjv-ci-[place]xdte Xfer(QC): 4 Toilet Transfer (QC): 4 Walk 10 feet (QC): 4 Walk 50ft with 2 Turns (QC): 4 Walk 150 ft (QC): 4 PT Plan Treatment/Plan Treatment Plan: Continue Plan of Care Treatment Plan: Bed Mobility, Education, Functional Activity [place], Functional Strength, Gait, Safety, Therapeutic Exercise, Transfers Treatment Duration: Dec 09, 2022 Frequency: 6 times per week Estimated Hrs Per Day: .25 hour per day Time Time In: 821 Time Out: 844 DATE: Nov 28, 2022 Total Billed Treatment Time: 23 Total Billed Treatment 1 visit FA x 2 23 min CLINT MAHONEY PT Nov 28, 2022 09:48
--- NOTE | 2022-11-28 12:29 | Progress Note ---
MIS DICKERSON Elmer 11/28/22 1229: Subjective Date Seen by a Provider: Nov 28, 2022 Time Seen by a Provider: 08:31 Subjective/Events-last exam Patient is an 82 yo M with a history of dementia, chronic anticoagulation, a fall. He is sitting up in a recliner this morning resting comfortably and no obvious distress. He received breakfast on interview and was eating and drinking. He denies any pain. He has been having multiple bowel movements. Says he has not been ambulating due to a bad left leg, however he has been working with PT and OT. No concerns today. Review of Systems General: No Chills; Fatigue HEENT: No Dysphasia Pulmonary: No Dyspnea; Cough Cardiovascular: No: Chest Pain, Palpitations Gastrointestinal: Diarrhea; No: Nausea, Vomiting Genitourinary: No Dysuria Neurological: Weakness, Confusion Objective Exam Last Set of Vital Signs Vital Signs Date Time Temp Pulse Resp B/P (MAP) Pulse Ox O2 Delivery O2 Flow Rate FiO2 11/28/22 07:37 92 Room Air 11/28/22 07:28 37.2 71 18 120/64 (82) 11/27/22 22:19 0.00 Capillary Refill : Less Than 3 Seconds I&O Intake and Output 11/28/22 00:00 Intake Total 795 ml Output Total 0 ml Balance 795 ml Intake Oral 795 ml Output Urine Total 0 ml # Voids 6 General: Alert, Oriented X3 HEENT: PERRLA, EOMI Neck: Supple Lungs: Clear to Auscultation, Normal Air Movement Heart: Regular Rate, Normal S1, Normal S2 Abdomen: Normal Bowel Sounds, Soft, No Tenderness Extremities: No Edema, Normal Pulses Skin: Other (Bilateral ecchymoses in forearms) Results Lab Laboratory Tests 11/28/22 05:04: White Blood Count 19.3H, Red Blood Count 3.13L, Hemoglobin 9.3L, Hematocrit 29L, Mean Corpuscular Volume 91, Mean Corpuscular Hemoglobin 30, Mean Corpuscular Hemoglobin Concent 33, Red Cell Distribution Width 13.2, Platelet Count 392, Mean Platelet Volume 11.7, Immature Granulocyte % (Auto) 1, Neutrophils (%) (Auto) 86H, Lymphocytes (%) (Auto) 6L, Monocytes (%) (Auto) 7, Eosinophils (%) (Auto) 0, Basophils (%) (Auto) 0, Neutrophils # (Auto) 16.5H, Lymphocytes # (Auto) 1.1, Monocytes # (Auto) 1.4H, Eosinophils # (Auto) 0.1, Basophils # (Auto) 0.1, Immature Granulocyte # (Auto) 0.2H, Sodium Level 138, Potassium Level 3.9, Chloride Level 109H, Carbon Dioxide Level 20L, Anion Gap 9, Blood Urea Nitrogen 19H, Creatinine 0.77, Estimat Glomerular Filtration Rate 89, BUN/Creatinine Ratio 25, Glucose Level 116H, Calcium Level 8.5, Corrected Calcium 9.5, Total Bilirubin 0.6, Aspartate Amino Transf (AST/SGOT) 32, Alanine Aminotransferase (ALT/SGPT) 63H, Alkaline Phosphatase 101, Total Protein 6.1L, Albumin 2.7L Microbiology 11/26/22 Blood Culture - Preliminary, Resulted No growth Radiology NAME: [facility] REC#: [id number] PT STATUS: ADM [place] : 1940 PHYSICIAN: MARTITA GARCIA DO ADMIT DATE: 11/19/22 Signed Date of Exam:11/28/22 CHEST 1 VIEW, AP/PA ONLY INDICATION: Fever, elevated white blood cell count. Frontal chest obtained at 0602 a.m. compared to the 11/26/2022. Heart is borderline in size. Mediastinal silhouette is unremarkable. The lungs show no focal infiltrate. There is no pneumothorax or pleural fluid. IMPRESSION: No acute process in the chest. Dictated by: Dictated on workstation # [id number] Dict: 11/28/2242 Trans: 11/28/22 1205 [facility] [id number] Interpreted by: JEROD MILLS MD Electronically signed by: JEROD MILLS MD 11/28/22 120 Assessment/Plan Assessment/Plan Assess & Plan/Chief Complaint Assessment: Falls Hematomas soft tissue type AF Dementia Cough and fever now resolved Plan: Await [facility] Continue with PT/OT Perform C diff. AG+tox screen considering patient's multiple BMs Clinical Quality Measures DVT/VTE Risk/Contraindication: Contraindications-Pharm: Other *list below* Other: large hematoma and hematuria MARTITA GARCIA DO 11/28/221946: Assessment/Plan Assessment/Plan Assess & Plan/Chief Complaint Monitor labs Supervisory-Addendum Brief Verification & Attestation Participated in pt care: history, MDM, physical Personally performed: exam, history, MDM, supervision of care Care discussed with: Medical Student Procedures: n/a Results interpretation: Verified all documentation Verification and Attestation of Medical Student E/M Service A medical student performed and documented this service in my presence. I reviewed and verified all information documented by the medical student and made modifications to such information, when appropriate. I personally performed the physical exam and medical decision making. Martita Garcia, Nov 28, 2022,19:46 MIS DICKERSON Nov 28, 2022 12:29 MARTITA GARCIA DO Nov 28, 2022 19:47
[2022-11-28 12:34] VITALS: BP 121/57
[2022-11-28 15:56] VITALS: BP 97/46
[2022-11-28 19:58] VITALS: BP 99/53
[2022-11-28] MEDS: MONTELUKAST 10 MG (SINGULAIR) TAB PO SCH (20:04)
[2022-11-28 23:32] VITALS: BP 119/73
[2022-11-29 03:27] VITALS: BP 106/62
[2022-11-29 05:45] LABS: BASOPHILS % (AUTO) 0 % (0-10); EOSINOPHILS # (AUTO) 0.1 10^3/uL (0.0-0.3); EOSINOPHILS % (AUTO) 1 % (0-10); HEMATOCRIT 28 % (40-54); LYMPHOCYTES # (AUTO) 1.1 10^3/uL (1.0-4.0); LYMPHOCYTES % (AUTO) 8 % (12-44); MEAN CORPUSCULAR HEMOGLOBIN 29 pg (25-34); MEAN CORPUSCULAR HGB CONC 32 g/dL (32-36); MEAN CORPUSCULAR VOLUME 91 fL (80-99); MEAN PLATELET VOLUME 11.5 fL (9.0-12.2); MONOCYTES # (AUTO) 1.2 10^3/uL (0.0-1.0); MONOCYTES % (AUTO) 8 % (0-12); NEUTROPHILS # (AUTO) 12.6 10^3/uL (1.8-7.8); NEUTROPHILS % (AUTO) 83 % (42-75); PLATELET COUNT 414 10^3/uL (130-400); WHITE BLOOD COUNT 15.1 10^3/uL (4.3-11.0)
[2022-11-29 05:53] LABS: ALBUMIN 2.6 GM/DL (3.2-4.5)
[2022-11-29 05:54] LABS: POTASSIUM 3.8 MMOL/L (3.6-5.0)
[2022-11-29 05:55] LABS: CALCIUM 8.5 MG/DL (8.5-10.1)
[2022-11-29 05:58] LABS: BILIRUBIN,TOTAL 0.6 MG/DL (0.1-1.0)
[2022-11-29 06:00] LABS: CREATININE SERUM 0.73 MG/DL (0.60-1.30)
[2022-11-29 07:49] VITALS: BP 125/58
[2022-11-29] MEDS: RT--FLUTICASONE/SALMETEROL 113-14 (AIRDUO RespiCLICK) IH SCH (08:00)
[2022-11-29] MEDS: DOCUSATE SODIUM 100 MG (COLACE) CAP PO SCH (08:48)
[2022-11-29] MEDS: DIVALPROEX 250 MG DELAYED RELEASE (DEPAKOTE) TAB PO SCH (08:48)
[2022-11-29] MEDS: ASPIRIN 81 MG CHEW (CHILDREN'S ASA) PO SCH (08:48)
[2022-11-29] MEDS: LORATADINE (CLARITIN) 10 MG TAB PO SCH (08:48)
[2022-11-29] MEDS: APIXABAN 2.5 MG (ELIQUIS) TABLET PO SCH (08:48)
[2022-11-29] MEDS: SERTRALINE 50 MG (ZOLOFT) TABLET PO SCH (08:48)
[2022-11-29] MEDS: SENNOSIDES 8.6 MG (SENOKOT) TAB PO SCH (08:48)
--- NOTE | 2022-11-29 09:18 | Discharge Summary ---
Diagnosis/Chief Complaint Date of Admission Nov 19, 2022 at 16:29 Date of Discharge Discharge Date: Nov 29, 2022 Discharge Diagnosis Assessment: Falls Hematomas soft tissue type AF Dementia Cough and fever now resolved Discharge Summary Discharge Physical Examination Allergies: Coded Allergies: No Known Drug Allergies (Unverified , 11/19/22) Vitals & I&Os Vital Signs Date Time Temp Pulse Resp B/P (MAP) Pulse Ox O2 Delivery O2 Flow Rate FiO2 11/29/22 16:04 37.0 81 18 120/57 (78) 97 Room Air 0.00 0.00 General Appearance: Alert, Cooperative Respiratory: Clear to Auscultation Cardiovascular: Regular Rate Hospital Course Was the Problem List Reviewed?: Yes Lengthy course after a fall with hematoma and high risk from OAC so he was admitted and monitored closely and OAC was held. Isolated fever occurred but no source and that resolved. PT OT ordered and patient ultimately transferred to [facility]. Labs (last 24 hrs) Laboratory Tests 11/19/22 14:20: White Blood Count 16.8H, Red Blood Count 3.76L, Hemoglobin 11.4L, Hematocrit 35L , Mean Corpuscular Volume 92, Mean Corpuscular Hemoglobin 30, Mean Corpuscular Hemoglobin Concent 33, Red Cell Distribution Width 13.3, Platelet Count 263, Mean Platelet Volume 12.1, Immature Granulocyte % (Auto) 1, Neutrophils (%) (Auto) 83H, Lymphocytes (%) (Auto) 7L, Monocytes (%) (Auto) 8, Eosinophils (%) (Auto) 1, Basophils (%) (Auto) 0, Neutrophils # (Auto) 13.9H, Lymphocytes # (Auto) 1.2, Monocytes # (Auto) 1.3H, Eosinophils # (Auto) 0.2, Basophils # (Auto) 0.1, Immature Granulocyte # (Auto) 0.1, Neutrophils % (Manual) 87, Lymphocytes % (Manual) 6, Monocytes % (Manual) 6, Eosinophils % (Manual) 1, Basophils % (Manual) 0, Band Neutrophils 0, Elliptocytes SLIGHT, Sodium Level 139, Potassium Level 4.2, Chloride Level 108H, Carbon Dioxide Level 19L, Anion Gap 12, Blood Urea Nitrogen 29H, Creatinine 1.09, Estimat Glomerular Filtration Rate 68, BUN/Creatinine Ratio 27, Glucose Level 109H, Calcium Level 9.1 11/19/22 14:36: Urine Color YELLOW, Urine Clarity CLEAR, Urine pH 6.0, Urine Specific [place] 1.020, Urine Protein NEGATIVE, Urine Glucose (UA) NEGATIVE, Urine Ketones TRACEH , Urine Nitrite NEGATIVE, Urine Bilirubin NEGATIVE, Urine Urobilinogen 4.0, Urine Leukocyte Esterase NEGATIVE, Urine RBC (Auto) 3+H, Urine RBC >100H, Urine WBC 0-2, Urine Squamous Epithelial Cells RARE, Urine Crystals NONE, Urine Bacteria NEGATIVE, Urine Casts NONE, Urine Mucus NEGATIVE, Urine Culture I ndicated NO 11/19/22 15:46: Influenza Type A (RT-PCR) Not Detected, Influenza Type B (RT-PCR) Not Detected, SARS-CoV-2 RNA (RT-PCR) Not Detected 11/20/22 05:20: White Blood Count 13.2H, Red Blood Count 3.40L, Hemoglobin 10.1L, Hematocrit 32L , Mean Corpuscular Volume 93, Mean Corpuscular Hemoglobin 30, Mean Corpuscular Hemoglobin Concent 32, Red Cell Distribution Width 13.3, Platelet Count 233, Mean Platelet Volume 13.1H, Immature Granulocyte % (Auto) 1, Neutrophils (%) (Auto) 79H, Lymphocytes (%) (Auto) 9L, Monocytes (%) (Auto) 8, Eosinophils (%) (Auto) 3, Basophils (%) (Auto) 0, Neutrophils # (Auto) 10.4H, Lymphocytes # (Auto) 1.2, Monocytes # (Auto) 1.1H, Eosinophils # (Auto) 0.4H, Basophils # (Auto) 0.0, Immature Granulocyte # (Auto) 0.1, Sodium Level 141, Potassium Level 4.0, Chloride Level 110H, Carbon Dioxide Level 23, Anion Gap 8, Blood Urea Nitrogen 26H, Creatinine 0.85, Estimat Glomerular Filtration Rate 87, BUN/Creatinine Ratio 31, Glucose Level 98, Calcium Level 8.9, Percent Immature Platelet Fraction 4.0, Corrected Calcium 9.8, Total Bilirubin 1.3H, Aspartate Amino Transf (AST/SGOT) 17, Alanine Aminotransferase (ALT/SGPT) 31, Alkaline Phosphatase 59, Total Protein 5.9L, Albumin 2.9L, Valproic Acid (Depakene) Level 24.6L 11/21/22 05:52: White Blood Count 14.3H, Red Blood Count 3.42L, Hemoglobin 10.2L, Hematocrit 32L , Mean Corpuscular Volume 93, Mean Corpuscular Hemoglobin 30, Mean Corpuscular Hemoglobin Concent 32, Red Cell Distribution Width 13.3, Platelet Count 255, Mean Platelet Volume 11.8, Immature Granulocyte % (Auto) 1, Neutrophils (%) (Auto) 81H, Lymphocytes (%) (Auto) 7L, Monocytes (%) (Auto) 8, Eosinophils (%) (Auto) 3, Basophils (%) (Auto) 0, Neutrophils # (Auto) 11.6H, Lymphocytes # (Auto) 1.1, Monocytes # (Auto) 1.1H, Eosinophils # (Auto) 0.4H, Basophils # (Auto) 0.1, Immature Granulocyte # (Auto) 0.1, Sodium Level 140, Potassium Level 3.9, Chloride Level 111H, Carbon Dioxide Level 21, Anion Gap 8, Blood Urea Nitrogen 23H, Creatinine 0.76, Estimat Glomerular Filtration Rate 90, BUN/Creatinine Ratio 30, Glucose Level 107H, Calcium Level 8.9, Corrected Calcium 9.7, Total Bilirubin 1.2H, Aspartate Amino Transf (AST/SGOT) 22, Alanine Aminotransferase (ALT/SGPT) 37, Alkaline Phosphatase 64, Total Protein 6.1L, Albumin 3.0L 11/22/22 05:37: White Blood Count 15.7H, Red Blood Count 3.39L, Hemoglobin 10.0L, Hematocrit 31L , Mean Corpuscular Volume 92, Mean Corpuscular Hemoglobin 30, Mean Corpuscular Hemoglobin Concent 32, Red Cell Distribution Width 13.2, Platelet Count 284, Mean Platelet Volume 11.8, Immature Granulocyte % (Auto) 0, Neutrophils (%) (Auto) 82H, Lymphocytes (%) (Auto) 6L, Monocytes (%) (Auto) 8, Eosinophils (%) (Auto) 3, Basophils (%) (Auto) 0, Neutrophils # (Auto) 12.9H, Lymphocytes # (Auto) 0.9L, Monocytes # (Auto) 1.3H, Eosinophils # (Auto) 0.5H, Basophils # (Auto) 0.0, Immature Granulocyte # (Auto) 0.1, Sodium Level 139, Potassium Level 3.9, Chloride Level 109H, Carbon Dioxide Level 20L, Anion Gap 10, Blood Urea Nitrogen 23H, Creatinine 0.76, Estimat Glomerular Filtration Rate 90, BUN/Creatinine Ratio 30, Glucose Level 111H, Calcium Level 9.1, Corrected Calcium 10.0, Total Bilirubin 1.0, Aspartate Amino Transf (AST/SGOT) 26, Alanine Aminotransferase (ALT/SGPT) 38, Alkaline Phosphatase 69, Total Protein 6.0L, Albumin 2.9L 11/23/22 05:05: White Blood Count 16.1H, Red Blood Count 3.37L, Hemoglobin 10.0L, Hematocrit 31L , Mean Corpuscular Volume 91, Mean Corpuscular Hemoglobin 30, Mean Corpuscular Hemoglobin Concent 33, Red Cell Distribution Width 13.2, Platelet Count 311, Mean Platelet Volume 11.9, Immature Granulocyte % (Auto) 1, Neutrophils (%) (Auto) 82H, Lymphocytes (%) (Auto) 7L, Monocytes (%) (Auto) 9, Eosinophils (%) (Auto) 2, Basophils (%) (Auto) 0, Neutrophils # (Auto) 13.1H, Lymphocytes # (Auto) 1.1, Monocytes # (Auto) 1.4H, Eosinophils # (Auto) 0.3, Basophils # (Auto) 0.1, Immature Granulocyte # (Auto) 0.1, Sodium Level 138, Potassium Level 4.1, Chloride Level 109H, Carbon Dioxide Level 19L, Anion Gap 10, Blood Urea Nitrogen 19H, Creatinine 0.78, Estimat Glomerular Filtration Rate 89, BUN/Creatinine Ratio 24, Glucose Level 107H, Calcium Level 9.0, Corrected Calc ium 9.9, Total Bilirubin 0.8, Aspartate Amino Transf (AST/SGOT) 26, Alanine Aminotransferase (ALT/SGPT) 49, Alkaline Phosphatase 67, Total Protein 6.1L, Albumin 2.9L 11/24/22 13:41: White Blood Count 13.8H, Red Blood Count 3.40L, Hemoglobin 10.2L, Hematocrit 31L , Mean Corpuscular Volume 92, Mean Corpuscular Hemoglobin 30, Mean Corpuscular Hemoglobin Concent 33, Red Cell Distribution Width 13.2, Platelet Count 321, Mean Platelet Volume 11.3, Immature Granulocyte % (Auto) 1, Neutrophils (%) (Auto) 81H, Lymphocytes (%) (Auto) 6L, Monocytes (%) (Auto) 10, Eosinophils (%) (Auto) 2, Basophils (%) (Auto) 0, Neutrophils # (Auto) 11.2H, Lymphocytes # (Auto) 0.8L, Monocytes # (Auto) 1.3H, Eosinophils # (Auto) 0.3, Basophils # (Auto) 0.0, Immature Granulocyte # (Auto) 0.1, Sodium Level 139, Potassium Level 3.9, Chloride Level 109H, Carbon Dioxide Level 22, Anion Gap 8, Blood Urea Nitrogen 20H, Creatinine 0.73, Estimat Glomerular Filtration Rate 91, BUN/Creatinine Ratio 27, Glucose Level 137H, Calcium Level 8.9, Corrected Calcium 9.9, Total Bilirubin 0.6, Aspartate Amino Transf (AST/SGOT) 24, Alanine Aminotransferase (ALT/SGPT) 49, Alkaline Phosphatase 68, Total Protein 6.0L, Albumin 2.8L 11/25/22 04:40: White Blood Count 14.5H, Red Blood Count 3.37L, Hemoglobin 10.1L, Hematocrit 31L , Mean Corpuscular Volume 91, Mean Corpuscular Hemoglobin 30, Mean Corpuscular Hemoglobin Concent 33, Red Cell Distribution Width 13.2, Platelet Count 272, Mean Platelet Volume 11.4, Immature Granulocyte % (Auto) 1, Neutrophils (%) (Auto) 78H, Lymphocytes (%) (Auto) 9L, Monocytes (%) (Auto) 9, Eosinophils (%) (Auto) 3, Basophils (%) (Auto) 0, Neutrophils # (Auto) 11.3H, Lymphocytes # (Auto) 1.3, Monocytes # (Auto) 1.3H, Eosinophils # (Auto) 0.4H, Basophils # (Auto) 0.1, Immature Granulocyte # (Auto) 0.1, Percent Immature Platelet Fraction 3.0, Sodium Level 139, Potassium Level 4.0, Chloride Level 109H, Carbon Dioxide Level 20L, Anion Gap 10, Blood Urea Nitrogen 20H, Creatinine 0.70, Estimat Glomerular Filtration Rate 92, BUN/Creatinine Ratio 29, Glucose Level 103, Calcium Level 8.7, Corrected Calcium 9.7, Total Bilirubin 0.6, Aspartate Am guicho Transf (AST/SGOT) 23, Alanine Aminotransferase (ALT/SGPT) 50, Alkaline Phosphatase 67, Total Protein 5.7L, Albumin 2.7L 11/26/22 05:22: White Blood Count 16.7H, Red Blood Count 3.50L, Hemoglobin 10.1L, Hematocrit 32L , Mean Corpuscular Volume 92, Mean Corpuscular Hemoglobin 29, Mean Corpuscular Hemoglobin Concent 32, Red Cell Distribution Width 13.1, Platelet Count 350, Mean Platelet Volume 12.2, Immature Granulocyte % (Auto) 1, Neutrophils (%) (Auto) 81H, Lymphocytes (%) (Auto) 7L, Monocytes (%) (Auto) 9, Eosinophils (%) (Auto) 2, Basophils (%) (Auto) 0, Neutrophils # (Auto) 13.4H, Lymphocytes # (Auto) 1.2, Monocytes # (Auto) 1.5H, Eosinophils # (Auto) 0.4H, Basophils # (Au to) 0.0, Immature Granulocyte # (Auto) 0.1, Percent Immature Platelet Fraction 2.6, Sodium Level 140, Potassium Level 3.9, Chloride Level 110H, Carbon Dioxide Level 20L, Anion Gap 10, Blood Urea Nitrogen 24H, Creatinine 0.79, Estimat Glomerular Filtration Rate 89, BUN/Creatinine Ratio 30, Glucose Level 106H, Calcium Level 8.9, Corrected Calcium 9.9, Total Bilirubin 0.6, Aspartate Amino Transf (AST/SGOT) 31, Alanine Aminotransferase (ALT/SGPT) 59H, Alkaline Phosphatase 98, Total Protein 6.1L, Albumin 2.8L, Neutrophils % (Manual) 90, Lymphocytes % (Manual) 5, Monocytes % (Manual) 4, Eosinophils % (Manual) 1, Elliptocytes SLIGHT, Absolute Reticulocyte Count 55, Percent Reticulocyte Count 1.58 11/26/22 12:25: Influenza Type A (RT-PCR) Not Detected, Influenza Type B (RT-PCR) Not Detected, SARS-CoV-2 RNA (RT-PCR) Not Detected 11/27/22 05:23: White Blood Count 17.6H, Red Blood Count 3.29L, Hemoglobin 9.6L, Hematocrit 30L, Mean Corpuscular Volume 92, Mean Corpuscular Hemoglobin 29, Mean Corpuscular Hemoglobin Concent 32, Red Cell Distribution Width 13.1, Platelet Count 374, Mean Platelet Volume 11.2, Immature Granulocyte % (Auto) 1, Neutrophils (%) (Auto) 81H, Lymphocytes (%) (Auto) 8L, Monocytes (%) (Auto) 8, Eosinophils (%) (Auto) 1, Basophils (%) (Auto) 0, Neutrophils # (Auto) 14.3H, Lymphocytes # (Auto) 1.4, Monocytes # (Auto) 1.5H, Eosinophils # (Auto) 0.2, Basophils # (Auto) 0.0, Immature Granulocyte # (Auto) 0.1, Sodium Level 139, Potassium Level 3.8, Chloride Level 110H, Carbon Dioxide Level 20L, Anion Gap 9, Blood Urea Nitrogen 22H, Creatinine 0.80, Estimat Glomerular Filtration Rate 88, BUN/Creatinine Ratio 28, Glucose Level 103, Calcium Level 8.7, Corrected Calcium 9.7, Total Bilirubin 0.5, Aspartate Amino Transf (AST/SGOT) 25, Alanine Aminotra nsferase (ALT/SGPT) 53, Alkaline Phosphatase 92, Total Protein 6.1L, Albumin 2.7L 11/28/22 05:04: White Blood Count 19.3H, Red Blood Count 3.13L, Hemoglobin 9.3L, Hematocrit 29L, Mean Corpuscular Volume 91, Mean Corpuscular Hemoglobin 30, Mean Corpuscular Hemoglobin Concent 33, Red Cell Distribution Width 13.2, Platelet Count 392, Mean Platelet Volume 11.7, Immature Granulocyte % (Auto) 1, Neutrophils (%) (Auto) 86H, Lymphocytes (%) (Auto) 6L, Monocytes (%) (Auto) 7, Eosinophils (%) (Auto) 0, Basophils (%) (Auto) 0, Neutrophils # (Auto) 16.5H, Lymphocytes # (Auto) 1.1, Monocytes # (Auto) 1.4H, Eosinophils # (Auto) 0.1, Basophils # (Auto) 0.1, Immature Granulocyte # (Auto) 0.2H, Sodium Level 138, Potassium Level 3.9, Chloride Level 109H, Carbon Dioxide Level 20L, Anion Gap 9, Blood Urea Nitrogen 19H, Creatinine 0.77, Estimat Glomerular Filtration Rate 89, BUN/Creatinine Ratio 25, Glucose Level 116H, Calcium Level 8.5, Corrected Calcium 9.5, Total Bilirubin 0.6, Aspartate Amino Transf (AST/SGOT) 32, Alanine Aminotransferase (ALT/SGPT) 63H, Alkaline Phosphatase 101, Total Protein 6.1L, Albumin 2.7L 11/28/22 12:21: Glucometer 127H 11/29/22 05:22: White Blood Count 15.1H, Red Blood Count 3.08L, Hemoglobin 9.0L, Hematocrit 28L, Mean Corpuscular Volume 91, Mean Corpuscular Hemoglobin 29, Mean Corpuscular Hemoglobin Concent 32, Red Cell Distribution Width 13.2, Platelet Count 414H, Mean Platelet Volume 11.5, Immature Granulocyte % (Auto) 1, Neutrophils (%) (Auto) 83H, Lymphocytes (%) (Auto) 8L, Monocytes (%) (Auto) 8, Eosinophils (%) (Auto) 1, Basophils (%) (Auto) 0, Neutrophils # (Auto) 12.6H, Lymphocytes # (Auto) 1.1, Monocytes # (Auto) 1.2H, Eosinophils # (Auto) 0.1, Basophils # (Auto) 0.0, Immature Granulocyte # (Auto) 0.1, Sodium Level 139, Potassium Level 3.8, Chloride Level 110H, Carbon Dioxide Level 20L, Anion Gap 9, Blood Urea Nitrogen 16, Creatinine 0.73, Estimat Glomerular Filtration Rate 91, BUN/Creatinine Ratio 22, Glucose Level 102, Calcium Level 8.5, Corrected Calcium 9.6, Total Bilirubin 0.6, Aspartate Amino Transf (AST/SGOT) 22, Alanine Aminotransferase (ALT/SGPT) 54, Alkaline Phosphatase 95, Total Protein 6.0L, Albumin 2.6L Microbiology 11/26/22 Blood Culture - Preliminary, Resulted No growth Pending Labs Microbiology Date/Time Source Procedure Growth Status 11/26/22 13:00 Peripheral Lt Ac Blood Culture - Preliminary No growth Resulted 11/26/22 13:00 Peripheral Lt Hand Blood Culture - Preliminary No growth Resulted Laboratory Tests 11/19/22 14:20: White Blood Count 16.8, Red Blood Count 3.76, Hemoglobin 11.4, Hematocrit 35, Mean Corpuscular Volume 92, Mean Corpuscular Hemoglobin 30, Mean Corpuscular Hemoglobin Concent 33, Red Cell Distribution Width 13.3, Platelet Count 263, Mean Platelet Volume 12.1, Immature Granulocyte % (Auto) 1, Neutrophils (%) (Auto) 83, Lymphocytes (%) (Auto) 7, Monocytes (%) (Auto) 8, Eosinophils (%) (Auto) 1, Basophils (%) (Auto) 0, Neutrophils # (Auto) 13.9, Lymphocytes # (Auto) 1.2, Monocytes # (Auto) 1.3, Eosinophils # (Auto) 0.2, Basophils # (Auto) 0.1, Immature Granulocyte # (Auto) 0.1, Neutrophils % (Manual) 87, Lymphocytes % (Manual) 6, Monocytes % (Manual) 6, Eosinophils % (Manual) 1, Basophils % (Manual) 0, Band Neutrophils 0, Elliptocytes SLIGHT, Sodium Level 139, Potassium Level 4.2, Chloride Level 108, Carbon Dioxide Level 19, Anion Gap 12, Blood Urea Nitrogen 29, Creatinine 1.09, Estimat Glomerular Filtration Rate 68, BUN/Creatinine Ratio 27, Glucose Level 109, Calcium Level 9.1 11/19/22 14:36: Urine Color YELLOW, Urine Clarity CLEAR, Urine pH 6.0, Urine Specific [place]berry 1.020, Urine Protein NEGATIVE, Urine Glucose (UA) NEGATIVE, Urine Ketones TRACE, Urine Nitrite NEGATIVE, Urine Bilirubin NEGATIVE, Urine Urobilinogen 4.0, Urine Leukocyte Esterase NEGATIVE, Urine RBC (Auto) 3+, Urine RBC >100, Urine WBC 0-2, Urine Squamous Epithelial Cells RARE, Urine Crystals NONE, Urine Bacteria NEGATIVE, Urine Casts NONE, Urine Mucus NEGATIVE, Urine Culture Indicated NO 11/19/22 15:46: Influenza Type A (RT-PCR) Not Detected, Influenza Type B (RT-PCR) Not Detected, SARS-CoV-2 RNA (RT-PCR) Not Detected 11/20/22 05:20: White Blood Count 13.2, Red Blood Count 3.40, Hemoglobin 10.1, Hematocrit 32, Mean Corpuscular Volume 93, Mean Corpuscular Hemoglobin 30, Mean Corpuscular Hemoglobin Concent 32, Red Cell Distribution Width 13.3, Platelet Count 233, Mean Platelet Volume 13.1, Immature Granulocyte % (Auto) 1, Neutrophils (%) (Auto) 79, Lymphocytes (%) (Auto) 9, Monocytes (%) (Auto) 8, Eosinophils (%) (Auto) 3, Basophils (%) (Auto) 0, Neutrophils # (Auto) 10.4, Lymphocytes # (Auto) 1.2, Monocytes # (Auto) 1.1, Eosinophils # (Auto) 0.4, Basophils # (Auto) 0.0, Immature Granulocyte # (Auto) 0.1, Sodium Level 141, Potassium Level 4.0, Chloride Level 110, Carbon Dioxide Level 23, Anion Gap 8, Blood Urea Nitrogen 26, Creatinine 0.85, Estimat Glomerular Filtration Rate 87, BUN/Creatinine Ratio 31, Glucose Level 98, Calcium Level 8.9, Percent Immature Platelet Fraction 4.0, Corrected Calcium 9.8, Total Bilirubin 1.3, Aspartate Amino Transf (AST/SGOT) 17, Alanine Aminotransferase (ALT/SGPT) 31, Alkaline Phosphatase 59, Total Protein 5.9, Albumin 2.9, Valproic Acid (Depakene) Level 24.6 11/21/22 05:52: White Blood Count 14.3, Red Blood Count 3.42, Hemoglobin 10.2, Hematocrit 32, Mean Corpuscular Volume 93, Mean Corpuscular Hemoglobin 30, Mean Corpuscular Hemoglobin Concent 32, Red Cell Distribution Width 13.3, Platelet Count 255, Mean Platelet Volume 11.8, Immature Granulocyte % (Auto) 1, Neutrophils (%) (Auto) 81, Lymphocytes (%) (Auto) 7, Monocytes (%) (Auto) 8, Eosinophils (%) ( Auto) 3, Basophils (%) (Auto) 0, Neutrophils # (Auto) 11.6, Lymphocytes # (Auto) 1.1, Monocytes # (Auto) 1.1, Eosinophils # (Auto) 0.4, Basophils # (Auto) 0.1, Immature Granulocyte # (Auto) 0.1, Sodium Level 140, Potassium Level 3.9, Chloride Level 111, Carbon Dioxide Level 21, Anion Gap 8, Blood Urea Nitrogen 23, Creatinine 0.76, Estimat Glomerular Filtration Rate 90, BUN/Creatinine Ratio 30, Glucose Level 107, Calcium Level 8.9, Corrected Calcium 9.7, Total Bilirubin 1.2, Aspartate Amino Transf (AST/SGOT) 22, Alanine Aminotransferase (ALT/SGPT) 37, Alkaline Phosphatase 64, Total Protein 6.1, Albumin 3.0 11/22/22 05:37: White Blood Count 15.7, Red Blood Count 3.39, Hemoglobin 10.0, Hematocrit 31, Mean Corpuscular Volume 92, Mean Corpuscular Hemoglobin 30, Mean Corpuscular Hemoglobin Concent 32, Red Cell Distribution Width 13.2, Platelet Count 284, Mean Platelet Volume 11.8, Immature Granulocyte % (Auto) 0, Neutrophils (%) (Auto) 82, Lymphocytes (%) (Auto) 6, Monocytes (%) (Auto) 8, Eosinophils (%) (Auto) 3, Basophils (%) (Auto) 0, Neutrophils # (Auto) 12.9, Lymphocytes # (Auto) 0.9, Monocytes # (Auto) 1.3, Eosinophils # (Auto) 0.5, Basophils # (Auto) 0.0, Immature Granulocyte # (Auto) 0.1, Sodium Level 139, Potassium Level 3.9, Chloride Level 109, Carbon Dioxide Level 20, Anion Gap 10, Blood Urea Nitrogen 23, Creatinine 0.76, Estimat Glomerular Filtration Rate 90, BUN/Creatinine Ratio 30, Glucose Level 111, Calcium Level 9.1, Corrected Calcium 10.0, Total Bilirubin 1.0, Aspartate Amino Transf (AST/SGOT) 26, Alanine Aminotransferase (ALT/SGPT) 38, Alkaline Phosphatase 69, Total Protein 6.0, Albumin 2.9 11/23/22 05:05: White Blood Count 16.1, Red Blood Count 3.37, Hemoglobin 10.0, Hematocrit 31, Mean Corpuscular Volume 91, Mean Corpuscular Hemoglobin 30, Mean Corpuscular Hemoglobin Concent 33, Red Cell Distribution Width 13.2, Platelet Count 311, Mean Platelet Volume 11.9, Immature Granulocyte % (Auto) 1, Neutrophils (%) (Auto) 82, Lymphocytes (%) (Auto) 7, Monocytes (%) (Auto) 9, Eosinophils (%) (Auto) 2, Basophils (%) (Auto) 0, Neutrophils # (Auto) 13.1, Lymphocytes # (Auto) 1.1, Monocytes # (Auto) 1.4, Eosinophils # (Auto) 0.3, Basophils # (Auto) 0.1, Immature Granulocyte # (Auto) 0.1, Sodium Level 138, Potassium Level 4.1, Chloride Level 109, Carbon Dioxide Level 19, Anion Gap 10, Blood Urea Nitrogen 19, Creatinine 0.78, Estimat Glomerular Filtration Rate 89, BUN/Creatinine Ratio 24, Glucose Level 107, Calcium Level 9.0, Corrected Calcium 9.9, Total Bilirubin 0.8, Aspartate Amino Transf (AST/SGOT) 26, Alanine Aminotransferase (ALT/SGPT) 49, Alkaline Phosphatase 67, Total Protein 6.1, Albumin 2.9 11/24/22 13:41: White Blood Count 13.8, Red Blood Count 3.40, Hemoglobin 10.2, Hematocrit 31, Mean Corpuscular Volume 92, Mean Corpuscular Hemoglobin 30, Mean Corpuscular Hemoglobin Concent 33, Red Cell Distribution Width 13.2, Platelet Count 321, Mean Platelet Volume 11.3, Immature Granulocyte % (Auto) 1, Neutrophils (%) (Auto) 81, Lymphocytes (%) (Auto) 6, Monocytes (%) (Auto) 10, Eosinophils (%) (Auto) 2, Basophils (%) (Auto) 0, Neutrophils # (Auto) 11.2, Lymphocytes # (Auto) 0.8, Monocytes # (Auto) 1.3, Eosinophils # (Auto) 0.3, Basophils # (Auto) 0.0, Immature Granulocyte # (Auto) 0.1, Sodium Level 139, Potassium Level 3.9, Chloride Level 109, Carbon Dioxide Level 22, Anion Gap 8, Blood Urea Nitrogen 20, Creatinine 0.73, Estimat Glomerular Filtration Rate 91, BUN/Creatinine Ratio 27, Glucose Level 137, Calcium Level 8.9, Corrected Calcium 9.9, Total Bilirubin 0.6, Aspartate Amino Transf (AST/SGOT) 24, Alanine Aminotransferase (ALT/SGPT) 49, Alkaline Phosphatase 68, Total Protein 6.0, Albumin 2.8 11/25/22 04:40: White Blood Count 14.5, Red Blood Count 3.37, Hemoglobin 10.1, Hematocrit 31, Mean Corpuscular Volume 91, Mean Corpuscular Hemoglobin 30, Mean Corpuscular Hemoglobin Concent 33, Red Cell Distribution Width 13.2, Platelet Count 272, Mean Platelet Volume 11.4, Immature Granulocyte % (Auto) 1, Neutrophils (%) (Auto) 78, Lymphocytes (%) (Auto) 9, Monocytes (%) (Auto) 9, Eosinophils (%) (Auto) 3, Basophils (%) (Auto) 0, Neutrophils # (Auto) 11.3, Lymphocytes # (A uto) 1.3, Monocytes # (Auto) 1.3, Eosinophils # (Auto) 0.4, Basophils # (Auto) 0.1, Immature Granulocyte # (Auto) 0.1, Percent Immature Platelet Fraction 3.0, Sodium Level 139, Potassium Level 4.0, Chloride Level 109, Carbon Dioxide Level 20, Anion Gap 10, Blood Urea Nitrogen 20, Creatinine 0.70, Estimat Glomerular Filtration Rate 92, BUN/Creatinine Ratio 29, Glucose Level 103, Calcium Level 8.7, Corrected Calcium 9.7, Total Bilirubin 0.6, Aspartate Amino Transf (AST/SGOT) 23, Alanine Aminotransferase (ALT/SGPT) 50, Alkaline Phosphatase 67, Total Protein 5.7, Albumin 2.7 11/26/22 05:22: White Blood Count 16.7, Red Blood Count 3.50, Hemoglobin 10.1, Hematocrit 32, Mean Corpuscular Volume 92, Mean Corpuscular Hemoglobin 29, Mean Corpuscular Hemoglobin Concent 32, Red Cell Distribution Width 13.1, Platelet Count 350, Mean Platelet Volume 12.2, Immature Granulocyte % (Auto) 1, Neutrophils (%) (Auto) 81, Lymphocytes (%) (Auto) 7, Monocytes (%) (Auto) 9, Eosinophils (%) (Auto) 2, Basophils (%) (Auto) 0, Neutrophils # (Auto) 13.4, Lymphocytes # (Auto) 1.2, Monocytes # (Auto) 1.5, Eosinophils # (Auto) 0.4, Basophils # (Auto) 0.0, Immature Granulocyte # (Auto) 0.1, Percent Immature Platelet Fraction 2.6, Sodium Level 140, Potassium Level 3.9, Chloride Level 110, Carbon Dioxide Level 20, Anion Gap 10, Blood Urea Nitrogen 24, Creatinine 0.79, Estimat Glomerular Filtration Rate 89, BUN/Creatinine Ratio 30, Glucose Level 106, Calcium Level 8.9, Corrected Calcium 9.9, Total Bilirubin 0.6, Aspartate Amino Transf (AST/SGOT) 31, Alanine Aminotransferase (ALT/SGPT) 59, Alkaline Phosphatase 98, Total Protein 6.1, Albumin 2.8, Neutrophils % (Manual) 90, Lymphocytes % (Manual) 5, Monocytes % (Manual) 4, Eosinophils % (Manual) 1, Elliptocytes SLIGHT, Absolute Reticulocyte Count 55, Percent Reticulocyte Count 1.58 11/26/22 12:25: Influenza Type A (RT-PCR) Not Detected, Influenza Type B (RT-PCR) Not Detected, SARS-CoV-2 RNA (RT-PCR) Not Detected 11/27/22 05:23: White Blood Count 17.6, Red Blood Count 3.29, Hemoglobin 9.6, Hematocrit 30, Mean Corpuscular Volume 92, Mean Corpuscular Hemoglobin 29, Mean Corpuscular Hemoglobin Concent 32, Red Cell Distribution Width 13.1, Platelet Count 374, Mean Platelet Volume 11.2, Immature Granulocyte % (Auto) 1, Neutrophils (%) (Auto) 81, Lymphocytes (%) (Auto) 8, Monocytes (%) (Auto) 8, Eosinophils (%) (Auto) 1, Basophils (%) (Auto) 0, Neutrophils # (Auto) 14.3, Lymphocytes # (Auto) 1.4, Monocytes # (Auto) 1.5, Eosinophils # (Auto) 0.2, Basophils # (Auto) 0.0, Immature Granulocyte # (Auto) 0.1, Sodium Level 139, Potassium Level 3.8, Chloride Level 110, Carbon Dioxide Level 20, Anion Gap 9, Blood Urea Nitrogen 22, Creatinine 0.80, Estimat Glomerular Filtration Rate 88, BUN/Creatinine Ratio 28, Glucose Level 103, Calcium Level 8.7, Corrected Calcium 9.7, Total Bilirubin 0.5, Aspartate Amino Transf (AST/SGOT) 25, Alanine Aminotransferase (ALT/SGPT) 53, Alkaline Phosphatase 92, Total Protein 6.1, Albumin 2.7 11/28/22 05:04: White Blood Count 19.3, Red Blood Count 3.13, Hemoglobin 9.3, Hematocrit 29, Mean Corpuscular Volume 91, Mean Corpuscular Hemoglobin 30, Mean Corpuscular Hemoglobin Concent 33, Red Cell Distribution Width 13.2, Platelet Count 392, Mean Platelet Volume 11.7, Immature Granulocyte % (Auto) 1, Neutrophils (%) (Auto) 86, Lymphocytes (%) (Auto) 6, Monocytes (%) (Auto) 7, Eosinophils (%) (A uto) 0, Basophils (%) (Auto) 0, Neutrophils # (Auto) 16.5, Lymphocytes # (Auto) 1.1, Monocytes # (Auto) 1.4, Eosinophils # (Auto) 0.1, Basophils # (Auto) 0.1, Immature Granulocyte # (Auto) 0.2, Sodium Level 138, Potassium Level 3.9, Chloride Level 109, Carbon Dioxide Level 20, Anion Gap 9, Blood Urea Nitrogen 19, Creatinine 0.77, Estimat Glomerular Filtration Rate 89, BUN/Creatinine Ratio 25, Glucose Level 116, Calcium Level 8.5, Corrected Calcium 9.5, Total Bilirubin 0.6, Aspartate Amino Transf (AST/SGOT) 32, Alanine Aminotransferase (ALT/SGPT) 63, Alkaline Phosphatase 101, Total Protein 6.1, Albumin 2.7 11/28/22 12:21: Glucometer 127 11/29/22 05:22: White Blood Count 15.1, Red Blood Count 3.08, Hemoglobin 9.0, Hematocrit 28, Mean Corpuscular Volume 91, Mean Corpuscular Hemoglobin 29, Mean Corpuscular Hemoglobin Concent 32, Red Cell Distribution Width 13.2, Platelet Count 414, Mean Platelet Volume 11.5, Immature Granulocyte % (Auto) 1, Neutrophils (%) (Auto) 83, Lymphocytes (%) (Auto) 8, Monocytes (%) (Auto) 8, Eosinophils (%) (Auto) 1, Basophils (%) (Auto) 0, Neutrophils # (Auto) 12.6, Lymphocytes # (Auto) 1.1, Monocytes # (Auto) 1.2, Eosinophils # (Auto) 0.1, Basophils # (Auto) 0.0, Immature Granulocyte # (Auto) 0.1, Sodium Level 139, Potassium Level 3.8, Chloride Level 110, Carbon Dioxide Level 20, Anion Gap 9, Blood Urea Nitrogen 16, Creatinine 0.73, Estimat Glomerular Filtration Rate 91, BUN/Creatinine Ratio 22, Glucose Level 102, Calcium Level 8.5, Corrected Calcium 9.6, Total Bilirubin 0.6, Aspartate Amino Transf (AST/SGOT) 22, Alanine Aminotransferase (ALT/SGPT) 54, Alkaline Phosphatase 95, Total Protein 6.0, Albumin 2.6 Discharge Home Medications: Active Scripts Active Acetaminophen 325 Mg Tablet 650 Mg PO Q4H PRN Geritol Complete Tablet (Mv, Min #36/Iron,Carbonyl/FA) 16 Mg Iron-0.38 Mg Tablet 1 Each PO DAILY Triamcinolone Acetonide 0.1% Cream (Triamcinolone Acet) 0.1 % Cr 1 Applic TP BID START DATE 11-14-2022 Eliquis (Apixaban) 2.5 Mg Tablet 2.5 Mg PO BID Depakote (Divalproex Sodium) 250 Mg Tablet.dr 250 Mg PO BID Cetirizine HCl 10 Mg Tablet 10 Mg PO DAILY Atorvastatin Calcium 20 Mg Tablet 20 Mg PO 2000 Aspirin 81 Mg Tab.chew 81 Mg PO DAILY Artificials Tears Drops (Dextran 70/Hypromellose) 30 Ml Drops 1 Drop OP DAILY PRN Ventolin Hfa (Albuterol Sulfate) 90 Mcg Hfa.aer.ad 2 Puff PO TID 1 PUFF = 90 MCG Vitamin C (Ascorbate Calcium) 500 Mg Tablet 500 Mg PO DAILY Symbicort 160-4.5 Mcg Inhaler (Budesonide/Formoterol Fumarate) 160 Mcg-4.5 Mcg/Actuation Hfa.aer.ad 2 Puff IH BID Sertraline HCl 50 Mg Tablet 75 Mg PO DAILY TAKES 1 AND 1/2 OF (50MG) TAB TO EQUAL 75MG Olmesartan Medoxomil 20 Mg Tablet 20 Mg PO DAILY hold for SBP<130 Montelukast Sodium 10 Mg Tablet 10 Mg PO DAILY Aquaphor Healing Ointment (Mineral Oil/Hydrophil Petrolat) 50 Gm Oint...g. 1 Applic TP BID Lubricant Pm Eye Ointment (Mineral Oil/Petrolatum,White) 42.5 %-57.3 % Oint...g. 1 Applic OD HS PRN Instructions to patient/family Please see electronic discharge instructions given to patient. Clinical Quality Measures DVT/VTE Risk/Contraindication: Contraindications-Pharm: Other *list below* Other: large hematoma and hematuria JO GARCIA DO Nov 29, 2022 09:18
--- NOTE | 2022-11-29 11:20 | Progress Note ---
MIS DICKERSON 11/29/22 1120: Progress Note Juan Jose is an 82 yo M who is laying in bed comfortably this morning. He is no acute distress. He pulled out his IV yesterday. He denies any pain. States that he had a bowel movement this morning and is voiding fine. Reports he did not eat breakfast this morning but is drinking. Patient has been working with PT/OT but states he has not been ambulating due to his bad left leg. Denies chest pain, shortness of breath, nausea, vomiting, fever, or cough. MARTITA GARCIA DO 11/30/22 0504: Supervisory-Addendum Brief Verification & Attestation Participated in pt care: history, MDM, physical Personally performed: exam, history, MDM, supervision of care Care discussed with: Medical Student Procedures: n/a Results interpretation: Verified all documentation Verification and Attestation of Medical Student E/M Service A medical student performed and documented this service in my presence. I reviewed and verified all information documented by the medical student and made modifications to such information, when appropriate. I personally performed the physical exam and medical decision making. Martita Garcia, Nov 30, 2022,05:04 MIS DICKERSON Nov 29, 2022 11:20 MARTITA GARCIA DO Nov 30, 2022 05:04
[2022-11-29 11:41] VITALS: BP 120/57
--- NOTE | 2022-11-29 11:43 | Physical Therapy Daily Note ---
PT Daily Note-Current Subjective Patient in recliner pre tx, agrees to PT, has unrated low back pain. Pain Section J - Health Conditions 1. Rarely or not at all 2. Occasionally 3. Frequently 4. Almost constantly 8. Unable to answer Pain Effect on Sleep: 1 Pain Interference with Therapy: 3 Pain Interference w/Day-to-Day: 3 Appearance Patient in recliner post tx with nurse call, phone, tray, chair alarm on. Mental Status Patient Orientation: Person, Confused Transfers SCALE: Activities may be completed with or without assistive devices. 4-Kuuqxvvrno-tmqesck completes the activity by him/herself with no assistance from a helper. 5-Set-up or Clean-up Assistance-helper sets up or cleans up; patient completes activity. [place] assists only prior to or following the activity. 4-Supervision or Touching Assistance-helper provides verbal cues and/or touching/steadying and/or contact guard assistance as patient completes activity. Assistance may be provided throughout the activity or intermittently. 3-Partial/Moderate Assistance-helper does LESS THAN HALF the effort. [place] lifts, holds or supports trunk or limbs, but provides less than half the effort. 2-Substantial/Maximal Assistance-helper does MORE THAN HALF the effort. [place] lifts or holds trunk or limbs and provides more than half the effort. 7-Lrqoxjzej-dellac does ALL the effort. Patient does none of the effort to complete the activity. Or, the assistance of 2 or more helpers is required for the patient to complete the activity. If activity was not attempted, code reason: 7-Patient Refused. 9-Not Applicable-not attempted and the patient did not perform the activity before the current illness, exacerbation or injury. 10-Not Attempted due to Environmental Limitations-(lack of equipment, weather restraints, etc.). 88-Not Attempted due to Medical Conditions or Safety Concerns. Sit to Stand (QC): 2 Chair/Zcg-cw-Ityan Xfer(QC): 2 Patient needed max assist to stand and was very retropulsive upon standing, took a few moments and grabbing the walker to lean forward Gait Training Distance: 40' Walk 10 feet (QC): 4 Gait Persons Needed: 1 Gait Assistive Device: FWW slow ambulation, unsteady but no zurdo LOB Treatments transfers, ambulation Assessment Current Status: Poor Progress very unsteady, fall risk PT Linux Administrator Goals Prison Goals PT Linux Administrator Goals Time Frame: Dec 09, 2022 Roll Left & Right (QC): 4 Sit to Lying (QC): 4 Lying-Sitting on Side/Bed(QC): 4 Sit to Stand (QC): 4 Chair/Wsv-gi-Wpxun Xfer(QC): 4 Toilet Transfer (QC): 4 Walk 10 feet (QC): 4 Walk 50ft with 2 Turns (QC): 4 Walk 150 ft (QC): 4 PT Plan Problem List Problem List: Activity Tolerance, Functional Strength, Safety, Balance, Gait, Transfer, Bed Mobility, ROM Treatment/Plan Treatment Plan: Continue Plan of Care Treatment Plan: Bed Mobility, Education, Functional Activity [place], Functional Strength, Gait, Safety, Therapeutic Exercise, Transfers Treatment Duration: Dec 09, 2022 Frequency: 6 times per week Estimated Hrs Per Day: .25 hour per day Safety Risks/Education Patient Education: Gait Training, Transfer Techniques, Correct Positioning, Safety Issues Teaching Recipient: Patient Teaching Methods: Demonstration, Discussion Response to Teaching: Reinforcement Needed Time Time In: 1117 Time Out: 1127 DATE: Nov 29, 2022 Total Billed Treatment Time: 10 Total Billed Treatment 1 visit FA 10' BERNA JACKSON PT Nov 29, 2022 11:43
--- NOTE | 2022-11-29 11:49 | Occupational Ther Daily Note ---
OT Current Status-Daily Note Subjective Up in chair MACHINE ROOM ENGINEER request assistance in changing patient to DC to SNF, patient agreeable Mental Status/Objective Patient Orientation: Person, Confused ADL-Treatment Therapy Code Descriptions/Definitions Functional [place] Measure: 0=Not Assessed/NA 4=Minimal Assistance 1=Total Assistance 5=Supervision or Setup 2=Maximal Assistance 6=Modified [place] 3=Moderate Assistance 7=Complete IndependenceSCALE: Activities may be completed with or without assistive devices. 4-Mmpixiosci-ulxhbuv completes the activity by him/herself with no assistance from a helper. 5-Set-up or Clean-up Assistance-helper sets up or cleans up; patient completes activity. [place] assists only prior to or following the activity. 4-Supervision or Touching Assistance-helper provides verbal cues and/or touching/steadying and/or contact guard assistance as patient completes activity. Assistance may be provided throughout the activity or intermittently. 3-Partial/Moderate Assistance-helper does LESS THAN HALF the effort. [place] lifts, holds or supports trunk or limbs, but provides less than half the effort. 2-Substantial/Maximal Assistance-helper does MORE THAN HALF the effort. [place] lifts or holds trunk or limbs and provides more than half the effort. 4-Uyleweiqs-daexpe does ALL the effort. Patient does none of the effort to complete the activity. Or, the assistance of 2 or more helpers is required for the patient to complete the activity. If activity was not attempted, code reason: 7-Patient Refused. 9-Not Applicable-not attempted and the patient did not perform the activity before the current illness, exacerbation or injury. 10-Not Attempted due to Environmental Limitations-(lack of equipment, weather restraints, etc.). 88-Not Attempted due to Medical Conditions or Safety Concerns. Eating (QC): 6 Oral Hygiene (QC): 4 Shower/Bathe Self (QC): 7 (continues to refuse) Upper Body Dressing (QC): 4 (c/o pain to RUE with flex/abd when inserting into sleeve) Lower Body Dressing (QC): 2 On/Off Footwear: 2 Toileting Hygiene (QC): 2 Toilet Transfer (QC): 3 Patient fluctuates between 2-3QC assist with transfers Education OT Patient Education: Correct positioning, Energy conservation, Exercise program, Modified ADL techniques, Progress toward Goal/Update tx plan, Purpose of tx/functional activities, Reviewed precautions, Rehab process, Safety issues, Transfer techniques, Use of adapted equipment Teaching Recipient: Patient Teaching Methods: Demonstration, Discussion Response to Teaching: Verbalize Understanding, Return Demonstration, Reinforcement Needed OT Data Analyst Goals Long-Term Goals Time Frame: Dec 02, 2022 Eating (QC): 6 Oral Hygiene (QC): 5 Toileting Hygiene (QC): 5 Shower/Bathe Self (QC): 5 Upper Body Dressing (QC): 5 Lower Body Dressing (QC): 5 On/Off Footwear (QC): 6 Additional Goals: 1-Demonstrate ADL Tasks, 2-Verbalize Understanding, 3- ImproveStrength/[place] 1=Demonstrate adherence to instructed precautions during ADL tasks. 2=Patient will verbalize/demonstrate understanding of assistive devices/modifications for ADL. 3=Patient will improve strength/tolerance for activity to enable patient to perform ADL's. OT Education/Plan Problem List/Assessment Assessment: Decreased Activ Tolerance, Decreased Safety Aware, Decreased UE Strength, Dependent Transfers, Impaired Bed Mobility, Impaired Cognition, Impaired Coordination, Impaired Funct Balance, Impaired Self-Care Skills, Restricted Funct UE ROM Noted improvement in use of RUE w/ functional task and reduce c/o pain to shoulder Discharge Recommendations Plan/Recommendations: Continue POC Therapy Discharge Recommendati: Post Acute OT Treatment Plan/Plan of Care Treatment,Training & Education: Yes Patient would benefit from OT for education, treatment and training to promote independence in ADL's, mobility, safety and/or upper extremity function for ADL's. Plan of Care: ADL Retraining, Cognitive Retraining, Concurrent Therapy, Functional Mobility, Group Exercise/Act as Ind, UE Funct Exercise/Act Treatment Duration: Dec 02, 2022 Frequency: 3 times per week (3-5 times / week) Agreement: Yes Rehab Potential: Good Patient remains fully dressed in recliner to finish breakfast all needs met Time Start Time: 10:12 Stop Time: 10:34 DATE: Nov 29, 2022 Total Time Billed (hr/min): 22 Billed Treatment Time 1 visit ADL 22 min VIPUL CUMMINGS OT Nov 29, 2022 11:49
[2022-11-29 13:47] VITALS: BP 120/57
[2022-11-29 16:04] VITALS: BP 120/57
== END 2022-11-29 09:17 ==
LOC: ER 13:57 → 4TH 13:58 → UNDOADMOB 16:29 → INTOOBSV 16:29 → UNDODISOB 11-29 12:05 → 4TH 11-29 13:34
PROVIDERS: ADMIT Internal Medicine; ATTEND Internal Medicine
DX: S40.011A Contusion of right shoulder, initial encounter (principal); S70.02XA Contusion of left hip, initial encounter; I48.91 Unspecified atrial fibrillation; F03.90 Unspecified dementia, unspecified severity, without behavioral disturbance, psychotic disturbance, mood disturbance, and anxiety; R05.9 Cough, unspecified; R50.9 Fever, unspecified; Z87.891 Personal history of nicotine dependence; R31.9 Hematuria, unspecified; R53.81 Other malaise; I10 Essential (primary) hypertension; D64.9 Anemia, unspecified; D72.829 Elevated white blood cell count, unspecified; W19.XXXA Unspecified fall, initial encounter; Z79.01 Long term (current) use of anticoagulants; Y99.0 Civilian activity done for income or pay
CPT/HCPCS: 36415; 51701; 70450; 71045; 80048; 80053; 80164; 81000; 82947; 85007; 85025; 85027; 85045; 85055; 87040; 87636; 94640; 94760; 96361; G0378